=== PATIENT | male | born 1970 | race Caucasian/White ===

== ENCOUNTER 2018-05-16 22:08 | Emergency (ER) | payer MEDICAID ==
[~2018-05-16] VITALS: Ht 172.7 cm; Wt 71.0 kg
[~2018-05-16 22:08] MED LIST: GABA600T7 PO; HYDR25TA11 PO; OLAN10TA9 PO; PRAZ1CAP2 PO; SERT50TA28 PO; TRAZ-137 PO
--- NOTE | 2018-05-16 22:22 | NUR ---
PT ROMA DAVIDSON. PT RECENTLY DCd FROM [facility] ON 05/09/18. PT UNDRESSED, ALL BELONGINGS BAGGED, TAGGED AND LOCKED IN CLOSET. PT MEDS TAKEN TO PHARMACY.
[2018-05-16 23:04] VITALS: BP 148/65
== END 2018-05-16 23:06 | disposition home or self-care (01) ==
LOC: ED 23:00
DX: F32.0 Major depressive disorder, single episode, mild (principal); F17.200 Nicotine dependence, unspecified, uncomplicated
CPT/HCPCS: 99284

== ENCOUNTER 2018-05-19 01:32 | Emergency (ER) | payer MEDICAID ==
[~2018-05-19] VITALS: Ht 172.7 cm; Wt 80.0 kg
--- NOTE | 2018-05-19 02:21 | NUR ---
ALL PT BELONGINGS BAGGED, TAGGED AND LOCKED IN CLOSET. PT UNDRESSED AND IN HOSPITAL GOWN. BLANKET GIVEN TO PT. PT HAS URINE CUP TO PROVIDE URINE SAMPLE. SITTER AT DOOR. PT LAYING IN BED MAKING MULTIPLE REQUEST TO SITTER. PT AWARE OF PLAN OF CARE. WILL CONTINUE TO MONITOR.
[2018-05-19 02:30] LABS: BASOPHILS # (AUTO) 0.09 x10^3/uL (0-0.1); BASOPHILS % (AUTO) 1 % (0-1); EOSINOPHILS % (AUTO) 5 % (1-7); LYMPHOCYTES # (AUTO) 3.33 x10^3/uL (1-3.4); LYMPHOCYTES % (AUTO) 31 % (22-44); MD NO; MEAN CORPUSCULAR HEMOGLOBIN 30.6 pg (27.5-34.5); MEAN CORPUSCULAR HGB CONC 33.8 g/dL (33.2-36.2); MEAN CORPUSCULAR VOLUME 90.6 fL (81-97); MEAN PLATELET VOLUME 7.5 fL (7.4-10.4); MONOCYTES # (AUTO) 0.97 x10^3/uL (0.2-0.8); MONOCYTES % (AUTO) 9 % (2-9); NEUTROPHILS # (AUTO) 6.01 x10^3/uL (1.8-6.8); NEUTROPHILS % (AUTO) 55 % (42-75); PLATELET COUNT 243 x10^3/uL (130-400); RED BLOOD COUNT 4.55 x10^6/uL (4.38-5.82); RED CELL DISTRIBUTION WIDTH 15.4 % (9.4-14.8)
[2018-05-19 02:41] LABS: ALBUMIN 3.8 g/dL (3.4-5.0); ANION GAP 8 mmol/L (5-15); CALCIUM 8.8 mg/dL (8.5-10.1); CHLORIDE 103 mmol/L (98-107); CREATININE 1.29 mg/dL (0.7-1.3); SALICYLATE LEVEL 3.2 mg/dL (2.8-20.0)
[2018-05-19 02:44] LABS: ACETAMINOPHEN < 2 mcg/mL (10-30)
--- NOTE | 2018-05-19 03:11 | NUR ---
PT RESTING IN BED WITH AUDIBLE BREATH SOUNDS. NO STATED NEEDS AT THIS TIME. SITTER AT DOOR.
--- NOTE | 2018-05-19 04:10 | NUR ---
PT CONTINUES TO REST CALMLY IN [facility] WITH EYES CLOSED AND EVEN RESPS. SITTER AT DOOR.
--- NOTE | 2018-05-19 05:50 | NUR ---
PT WOKEN UP FOR URINE ATTEMPT. PT GIVEN URINAL. WILL CONTINUE TO MONITOR. SITTER AT DOOR.
--- NOTE | 2018-05-19 06:49 | NUR ---
BEDSIDE REPORT TO ELY KYLE. PT STILL HAS NOT PRODUCED URINE. THIS RN HAS ASKED PT REPEATEDLY FOR URINE. PT HAS URINAL IN HAND, BUT FALLS BACK TO SLEEP SHORTLY AFTER AROUSAL. BILAT BEDRAILS UP. WILL CONTINUE TO MONITOR.
--- NOTE | 2018-05-19 06:56 | NUR ---
received bedside report from SAROJ Sweet. PT SLEEPING ON GURNEY. NO ACUTE DISTRESS NOTED. RESPS EQUAL AND UNLABORED. ALL SAFETY MEAUSURES OBTAINED. PT HAS URINAL IN HAND. UA STILL NEEDED PER REPORT.
--- NOTE | 2018-05-19 07:43 | NUR ---
WOKE PATIENT UP AND REQUESTED URINE SAMPLE AGAIN. PT HAS URINAL. PT GIVEN WATER.
--- NOTE | 2018-05-19 08:15 | NUR ---
PT PROVIDED URINE SAMPLE. SAMPLE WALKED TO LAB. PT RESTING ON [place]. ALL SAFETY MEASURES OBTAINED. SITTER AT DOORWAY. PT WITHIN FULL VIEW.
[2018-05-19 08:46] LABS: AMPHETAMINE SCREEN, URINE Negative (Negative); BARBITURATE SCREEN, URINE Negative (Negative); BENZODIAZEPINE SCREEN, URINE Negative (Negative); CANNABINOID SCREEN, URINE Negative (Negative); COCAINE SCREEN, URINE Negative (Negative); METHADONE SCREEN, URINE Negative (Negative); OPIATE SCREEN, URINE Negative (Negative)
--- NOTE | 2018-05-19 09:09 | NUR ---
PT SLEEPING ON GURNEY. NO ACUTE DISTRESS NOTED. ALL SAFETY MEASURES OBTAINED. RESPS EQUAL AND UNLABORED. SITTER AT DOORWAY. WILL CONTINUE TO MONITOR.
--- NOTE | 2018-05-19 09:17 | NUR ---
Ronny from [facility] called and said patient does not need to be evaluated and can go directly to accepting facility.
--- NOTE | 2018-05-19 09:29 | NUR ---
PT SPEAKING WITH ED. PT STATES "I STILL WANT TO HURT MYSELF." ALL SAFETY MEASURES OBTAINED.
--- NOTE | 2018-05-19 10:16 | NUR ---
PT SLEEPING ON GURNEY AWAITING SOC. NO ACUTE DISTRESS NOTED. RESPS EQUAL AND UNLABORED. ALL SAFETY MEASURES OBTAINED.
--- NOTE | 2018-05-19 11:19 | NUR ---
REPORT TO FROM SOC. PT RESTING ON [place]. NO ACUTE DISTRESS NOTED. ALL SAFETY MEASURES OBTAINED. VSS. NO C/O HI PT STILL STATES HE WANTS TO HURT HIMSELF.
--- NOTE | 2018-05-19 11:26 | NUR ---
PT GIVEN WATER. SOC SPEAKING WITH PT.
--- NOTE | 2018-05-19 11:54 | NUR ---
SOC COMPLETE. DIET TRAY ORDERED. PT RESTING ON GURNEY. NO ACUTE DISTRESS NOTED. NO NEEDS REQUESTED AT THIS TIME. ALL SAFETY MEASURES OBTAINED. WILL CONTINUE TO MONITOR.
--- NOTE | 2018-05-19 12:21 | NUR ---
BREAK RN: PT RESTING QUIETLY ON BED. LUNCH TRAY DELIVERED.
[2018-05-19 12:50] VITALS: BP 124/58
--- NOTE | 2018-05-19 12:51 | NUR ---
Patient/Caregiver given discharge instructions and they have confirmed that they understand the instructions. Patient ambulatory with steady gait. PT GIVEN BACK ALL PERSONAL BELONGINGS. PT STATES "I FEEL BETTER AFTER TALKING TO THE SOC." NO C/O OF HARMING SELF
--- NOTE | 2018-05-19 13:00 | NUR ---
PT GIVEN TAXI VOUCHER
== END 2018-05-19 13:01 | disposition home or self-care (01) ==
LOC: ED 01:47
DX: R45.851 Suicidal ideations (principal); F32.9 Major depressive disorder, single episode, unspecified; F17.200 Nicotine dependence, unspecified, uncomplicated; Z72.9 Problem related to lifestyle, unspecified; Z75.9 Unspecified problem related to medical facilities and other health care; Z91.14 Patient's other noncompliance with medication regimen; Z63.8 Other specified problems related to primary support group; Z59.0 Homelessness
CPT/HCPCS: 36415; 80048; 80307; 80329; 82040; 85025; 99284; G0480

== ENCOUNTER 2018-06-10 20:26 | Emergency (ER) | payer MEDICAID ==
[~2018-06-10] VITALS: Ht 172.7 cm; Wt 80.6 kg
--- NOTE | 2018-06-10 20:46 | NUR ---
SEE TRIAGE, LEGAL HOLD ON CHART. PT WITH MINIMAL INTERACTION, CONFIRMS THAT HE IS SUICIDAL W/PLAN TO JUMP OFF BUILDING. PT STATES HE HASN'T BEEN TAKING PSYCH MED. +AH, -VH, PT DENIES HI. PT WILL NOT ELABORATE ON ANY RECENT EVENTS OR PROVIDE DETAIL OF AH. 2 BELONGING BAGS PLACED IN SECURE LOCKER, PROSTHETIC LIMB AT BS-PT UNABLE TO AMBULATE WITHOUT. CANE IN ANTE ROOM. HOME MEDS TO PHARMACY. PT UPDATED ON POC. URINAL AT BS. SITTER AT DOORWAY.
[2018-06-10 21:00] LABS: BASOPHILS % (AUTO) 1 % (0-1); EOSINOPHILS # (AUTO) 0.19 x10^3/uL (0-0.4); EOSINOPHILS % (AUTO) 1 % (1-7); LYMPHOCYTES # (AUTO) 2.35 x10^3/uL (1-3.4); LYMPHOCYTES % (AUTO) 17 % (22-44); MD NO; MEAN CORPUSCULAR HEMOGLOBIN 30.5 pg (27.5-34.5); MEAN CORPUSCULAR VOLUME 89.8 fL (81-97); MEAN PLATELET VOLUME 7.1 fL (7.4-10.4); MONOCYTES # (AUTO) 0.86 x10^3/uL (0.2-0.8); MONOCYTES % (AUTO) 6 % (2-9); NEUTROPHILS # (AUTO) 10.17 x10^3/uL (1.8-6.8); NEUTROPHILS % (AUTO) 74 % (42-75); PLATELET COUNT 205 x10^3/uL (130-400); RED BLOOD COUNT 4.38 x10^6/uL (4.38-5.82)
[2018-06-10 21:04] LABS: ALANINE AMINOTRANSFERASE 54 U/L (12-78); ALBUMIN 3.9 g/dL (3.4-5.0); ANION GAP 9 mmol/L (5-15); CALCIUM 8.3 mg/dL (8.5-10.1); CHLORIDE 104 mmol/L (98-107); CREATININE 1.19 mg/dL (0.7-1.3); SALICYLATE LEVEL 2.1 mg/dL (2.8-20.0)
[2018-06-10] MEDS ORDERED: TRAZ300T2 PO (21:04)
[2018-06-10] MEDS ORDERED: OLAN10TA9 PO (21:04)
[2018-06-10] MEDS ORDERED: GABA400C PO (21:04)
[2018-06-10] MEDS ORDERED: IBUP-1223 PO (21:04)
[2018-06-10 21:07] LABS: ALKALINE PHOSPHATASE 95 U/L (45-117); BILIRUBIN,TOTAL 0.3 mg/dL (0.2-1.0); TOTAL PROTEIN 7.6 g/dL (6.4-8.2)
[2018-06-10 21:08] LABS: ACETAMINOPHEN < 2 mcg/mL (10-30)
[2018-06-10 21:47] LABS: AMPHETAMINE SCREEN, URINE Negative (Negative); BARBITURATE SCREEN, URINE Negative (Negative); BENZODIAZEPINE SCREEN, URINE Negative (Negative); CANNABINOID SCREEN, URINE Negative (Negative); COCAINE SCREEN, URINE Negative (Negative); METHADONE SCREEN, URINE Negative (Negative); OPIATE SCREEN, URINE Negative (Negative)
--- NOTE | 2018-06-10 22:07 | NUR ---
ALL RESULTS BACK, PT FOR RECHECK.
--- NOTE | 2018-06-10 23:00 | NUR ---
REPORT FROM SAROJ REINOSO. AWAITING TELEPSYCH CONSULT
--- NOTE | 2018-06-10 23:30 | NUR ---
TELEPSYCH MONITOR AT BEDSIDE. PT RESTING IN GURNEY W/ EYES CLOSED. EVEN/REGULAR RESPIRATIONS. PT EASILY ARROUSABLE TO VOICE. PT UPDATED TO POC (TELEPSYCH CONSULT) AND DEMONSTRATES UNDERSTANDING.
--- NOTE | 2018-06-11 01:22 | NUR ---
PT RESTING ON GURNEY W/ EYES CLOSED. EVEN/REGULAR RESPIRATIONS NOTED. AWAITING TELEPSYCH CONSULT.
--- NOTE | 2018-06-11 01:51 | NUR ---
REPORT TO SOC PSYCH . AWAITING PT EVAL
--- NOTE | 2018-06-11 03:07 | NUR ---
CALLED [facility] FOR 2N CAME TO SEE PT. SHE CALLED DR. Adkins FOR ACCEPTANCE AWAITING FOR RESPONSE
--- NOTE | 2018-06-11 03:20 | NUR ---
PT RESTING CALMLY, PROVIDED PT WITH SNACK SI PRECAUTIONS MAINTAINED, ROOM SECURED, SITTER AT DOORWAY FOR CONTINOUS MONITORING.
--- NOTE | 2018-06-11 03:39 | NUR ---
REFERRAL FAXED TO [facility], [facility], AND [facility]
--- NOTE | 2018-06-11 03:55 | NUR ---
Unable to take pt d/t MRSA hx.
[2018-06-11] MEDS ORDERED: HALOPERIDOL 5 MG/ML IVPush PRN (04:00)
[2018-06-11] MEDS ORDERED: hydrALAzine 20 MG/ML, 1ML IVPush PRN (04:00)
--- NOTE | 2018-06-11 04:11 | NUR ---
PT RESTING WITH EYES CLOSED, NADN, EQUAL CHEST RISE/FALL OBSERVED, SITTER AT DOORWAY FOR CONTINOUS MONITORING
[2018-06-11] MEDS ORDERED: ENOXAPARIN 40 MG/0.4 ML ONE (04:19)
--- NOTE | 2018-06-11 04:24 | NUR ---
[facility] CALLED AND DENIED PT DUE TO INSURANCE
[2018-06-11] MEDS: ENOXAPARIN 40 MG/0.4 ML SQ SCH (04:42)
--- NOTE | 2018-06-11 05:07 | NUR ---
PT RESTING WITH EYES CLOSED, NADN, EQUAL CHEST RISE/FALL OBSERVED, PT REPOSITIONED SELF IN BED, SITTER AT DOORWAY FOR CONTINOUS MONITORING
--- NOTE | 2018-06-11 06:07 | NUR ---
PT RESTING WITH EYES CLOSED, NADN, EQUAL CHEST RISE/FALL OBSERVED, SITTER AT DOORWAY FOR CONTINOUS MONITORING
--- NOTE | 2018-06-11 06:55 | NUR ---
report given to kelsey zhong
--- NOTE | 2018-06-11 07:15 | NUR ---
BEDSIDE REPORT FROM TORRI RN, PT SLEEPING IN [facility]. NAD. SITTER AT BEDSIDE. BREAKFAST TRAY ORDERED
--- NOTE | 2018-06-11 08:15 | NUR ---
PT SLEEPING IN [place], BREAKFAST PROVIDED, SITTER AT BEDSIDE
[2018-06-11] MEDS ORDERED: IBUPROFEN 800 MG TABLET PO SCH (09:00)
--- NOTE | 2018-06-11 09:15 | NUR ---
PT SLEEPING IN [facility], SITTER AT BEDSIDE
--- NOTE | 2018-06-11 10:30 | NUR ---
PT SLEEPING IN GURNEY, AWAITING PLACEMENT. SITTER AT BEDSIDE, EQUAL CHEST RISE AND FALL
--- NOTE | 2018-06-11 11:29 | NUR ---
PT SLEEPING IN GURNEY, EQUAL CHEST RISE AND FALL. SITTER AT BEDSIDE. LUNCH TRAY ORDERED
--- NOTE | 2018-06-11 13:20 | NUR ---
LUNCH TRAY GIVEN TO PT. PT STATES HE IS STILL FEELING SUICIDAL. PT ATE 100% OF TRAY, URINAL EMPTIED. SITTER AT BEDSIDE. NAD.
[2018-06-11] MEDS ORDERED: SERTRALINE 50MG TABLET ONE (13:22)
[2018-06-11] MEDS: SERTRALINE 50MG TABLET PO SCH (13:25)
--- NOTE | 2018-06-11 14:30 | NUR ---
PT RESTING IN GURNEY, AWAITING PLACEMENT. SITTER AT BEDSIDE, EQUAL CHEST RISE AND FALL, NAD
--- NOTE | 2018-06-11 15:39 | NUR ---
PT RESTING IN GURNEY, AWAITING PLACEMENT. SITTER AT BEDSIDE, EQUAL CHEST RISE AND FALL, NAD
--- NOTE | 2018-06-11 16:30 | NUR ---
PT RESTING IN GURNEY, SITTER AT BEDSIDE, EQUAL CHEST RISE AND FALL, NAD
--- NOTE | 2018-06-11 17:31 | NUR ---
PT RESTING IN GURNEY, ,SITTER AT BEDSIDE, EQUAL CHEST RISE AND FALL, NAD
--- NOTE | 2018-06-11 18:18 | NUR ---
RECEIVED BEDSIDE REPORT FROM SAROJ ZHAO. ASSUMING PATIENT CARE AT THIS TIME.
--- NOTE | 2018-06-11 18:19 | NUR ---
PT SLEEPING ON GURNEY. ALL SAFETY MEASURES OBTAINED. SITTER AT DOORWAY, PT WITHIN FULL VIEW.
--- NOTE | 2018-06-11 18:47 | NUR ---
DIET TRAY DELIVERED. PT PLEASANT. ALL SAFETY MEASURES OBTAINED. NO NEEDS REQUESTED AT THIS TIME. SITTER AT DOORWAY, PT WITHIN FULL VIEW
--- NOTE | 2018-06-11 18:58 | NUR ---
BS REPORT OF PT FROM SAROJ GRAVES. PT ASLEEP AT THIS TIME; DEVONN. SITTER OUTSIDE OF PT ROOM.
--- NOTE | 2018-06-11 19:01 | NUR ---
BEDSIDE REPORT TO SAROJ CHINCHILLA.
--- NOTE | 2018-06-11 20:04 | NUR ---
PT ASLEEP IN [facility] AT THIS TIME; NADN. SITTER OUTSIDE OF ROOM. NO ACUTE DISTRESS NOTED AT THIS TIME.
[2018-06-11] MEDS: OLANZAPINE 10 MG TABLET PO SCH (21:00)
[2018-06-11] MEDS: PRAZOSIN 1 MG CAPSULE PO SCH (21:00)
--- NOTE | 2018-06-11 21:31 | NUR ---
PT SLEEPING IN [facility] AT THIS TIME; ISHMAEL. SITTER OUTSIDE OF ROOM FOR DIRECT OBSERVATION OF PT.
--- NOTE | 2018-06-11 22:15 | NUR ---
PT ASLEEP IN [facility]; ISHMAEL. SITTER OUTSIDE OF ROOM AT THIS TIME FOR DIRECT OBSERVATION.
[2018-06-11] MEDS ORDERED: PRAZOSIN 5 MG CAPSULE ONE (23:17)
[2018-06-11] MEDS ORDERED: OLANZAPINE 10 MG TABLET ONE (23:17)
--- NOTE | 2018-06-11 23:53 | NUR ---
PT AWAKENED AND MEDICATED PER MAR. PT DENIES ANY OTHER NEEDS AT THIS TIME. SITTER OUTSIDE OF ROOM FOR DIRECT PATIENT OBSERVATION.
--- NOTE | 2018-06-12 00:52 | NUR ---
pt sleeping in [facility] at this time; magdalene. sitter outside of pt room for direct observation. report of pt given to lunch leoncio cole.
--- NOTE | 2018-06-12 01:56 | NUR ---
PT ASLEEP IN [facility] AT THIS TIME; ISHMAEL. SITTER OUTSIDE OF PT ROOM AT THIS TIME FOR DIRECT OBSERVATION.
--- NOTE | 2018-06-12 03:56 | NUR ---
PT ASLEEP IN [facility] AT THIS TIME; NADN. EQUAL BILATERAL RISE AND FALL OF CHEST NOTED. PT HAS SITTER OUTSIDE OF ROOM FOR DIRECT OBSERVATION.
[2018-06-12] MEDS: ENOXAPARIN 40 MG/0.4 ML SQ SCH (04:00)
--- NOTE | 2018-06-12 05:56 | NUR ---
PT ASLEEP IN [facility]; ISHMAEL. SITTER OUTSIDE OF PT ROOM FOR DIRECT OBSERVATION.
[2018-06-12] MEDS ORDERED: ENOXAPARIN 40 MG/0.4 ML ONE (06:22)
--- NOTE | 2018-06-12 06:32 | NUR ---
PT VSS AND UPDATED IN EMR. PT MEDICATED PER JUN.
--- NOTE | 2018-06-12 07:07 | NUR ---
Recieved bedside report from SAROJ Peck. All questions answered. Assuming care of pt. Pt asleep on hospital bed. Sitter at doorway in direct line of sight for observation. NADN. No needs expressed.
--- NOTE | 2018-06-12 08:47 | NUR ---
Pt sleeping on gurney. Sitter near doorway in direct line of sight. NADN. No needs expressed.
[2018-06-12] MEDS ORDERED: SERTRALINE 50MG TABLET ONE (08:54)
[2018-06-12] MEDS: SERTRALINE 50MG TABLET PO SCH (09:03)
--- NOTE | 2018-06-12 09:10 | NUR ---
Provided pt breakfast tray and medications per EMAR. Pt appreciative. Emptied pt urinal. Pt appreciative. NADN. Pt states he has thoughts today of harming himself. Pt denies HI. Pt states he has a plan of jumping off a building. Sitter near doorway in direct line of sight for observation.
--- NOTE | 2018-06-12 10:53 | NUR ---
THROUGHPUT RN: [facility]
--- NOTE | 2018-06-12 11:17 | NUR ---
THROUGHPUT RN: Confirmation fax received from [facility], [facility], [facility], [facility]
[2018-06-12] MEDS ORDERED: GABAPENTIN 300 MG CAPSULE ONE ×2 (14:05→20:38)
[2018-06-12] MEDS: GABAPENTIN 300 MG CAPSULE PO SCH ×2 (14:10→20:41)
--- NOTE | 2018-06-12 14:11 | NUR ---
LATE NOTE ENTRY FOR 1100: Pt sleeping on hospital bed. NADN. No needs expressed. Sitter near doorway in direct line of sight for observation.
--- NOTE | 2018-06-12 14:11 | NUR ---
LATE NOTE ENTRY FOR 1000: Pt provided hospital bed. Pt appreciative. Sitter near doorway in direct line of sight for observation. NADN. No needs expressed.
--- NOTE | 2018-06-12 14:12 | NUR ---
LATE NOTE ENTERY FOR 1300: Pt provided lunch tray. Pt appreciative. Sitter near doorway in direct line of sight for observation.
--- NOTE | 2018-06-12 14:12 | NUR ---
LATE NOTE ENTRY FOR 1200: Pt sleeping on hospital bed. NADN. No needs expressed. Sitter near doorway in direct line of sight for observation.
--- NOTE | 2018-06-12 14:13 | NUR ---
Provided pt medication per EMAR per pt request. Sitter near doorway in direct line of sight for observation.
--- NOTE | 2018-06-12 15:14 | NUR ---
Pt sleeping on hospital bed. NADN. No needs expressed. Sitter near doorway in direct line of sight for observation.
--- NOTE | 2018-06-12 17:02 | NUR ---
LATE NOTE MARILYN FOR 163: Pt sleeping on hospital bed. NADN. No needs expressed. sitter near doorway in direct line of sight for observation.
--- NOTE | 2018-06-12 17:13 | NUR ---
Provided pt dinner tray. Pt appreciative. NADN. No needs expressed. Sitter near doorway in direct line of sight for observation.
--- NOTE | 2018-06-12 18:06 | NUR ---
Pt resting asleep on hospital bed. NADN. Sitter near doorway in direct line of sight for observation. No needs expressed.
--- NOTE | 2018-06-12 19:04 | NUR ---
Provided bedside report to SAROJ Aguero. All questiosn answered.
--- NOTE | 2018-06-12 19:04 | NUR ---
ASSUMED CARE OF PATIENT. REPORT GIVEN FROM SAROJ SHANKS PT RESTING IN ROOM. NO ACUTE DISTRESS NOTED. SITTER AT DOOR. WILL CONTINUE TO MONITOR.
--- NOTE | 2018-06-12 19:40 | NUR ---
Pt given water. Pt resting in room. no acute distress noted. sitter at door. will continue to monitor.
--- NOTE | 2018-06-12 20:25 | NUR ---
PT RESTING IN ROOM. NO ACUTE DISTRESS NOTED. CALL LIGHT IN PLACE. WILL CONTINUE TO MONITOR.
[2018-06-12] MEDS ORDERED: OLANZAPINE 10 MG TABLET ONE ×2 (20:37→20:39)
[2018-06-12] MEDS: OLANZAPINE 10 MG TABLET PO SCH (20:41)
[2018-06-12] MEDS: PRAZOSIN 1 MG CAPSULE PO SCH (21:24)
--- NOTE | 2018-06-12 22:40 | NUR ---
PT RESTING IN ROOM. NO ACUTE DISTRESS NOTED. SITTER AT DOOR. WILL CONITNUE TO MONITOR.
--- NOTE | 2018-06-12 23:27 | NUR ---
PT RESTING IN ROOM. NO ACUTE DISTRESS NOTED. SITTER AT DOOR WILL CONTINUE TO MONITOR.
--- NOTE | 2018-06-13 00:36 | NUR ---
PT RESTING IN ROOM. REGULAR RESP. NO ACUTE DISTRESS NOTED. SIITER AT DOOR. WILL CONTINUE TO MONITOR.
--- NOTE | 2018-06-13 01:40 | NUR ---
REPORT GIVEN TO SAROJ CHINCHILLA
--- NOTE | 2018-06-13 01:44 | NUR ---
report of pt from kelsey dickson and assuming care of pt at this time.
--- NOTE | 2018-06-13 03:06 | NUR ---
PT ASLEEP IN [facility] AT THIS TIME; ISHMAEL. SITTER OUTSIDE OF PT ROOM FOR DIRECT OBSERVATION.
--- NOTE | 2018-06-13 03:59 | NUR ---
PT ASLEEP IN [facility] AT THIS TIME; DEVONN SITTER OUTSIDE OF ROOM FOR DIRECT OBSERVATION AT THIS TIME.
[2018-06-13] MEDS: ENOXAPARIN 40 MG/0.4 ML SQ SCH (04:00)
[2018-06-13] MEDS ORDERED: ENOXAPARIN 40 MG/0.4 ML ONE (05:41)
--- NOTE | 2018-06-13 05:48 | NUR ---
PT MEDICATED PER JUN. PT VSS AND UPDATED IN EMR. PT RESTING IN GURNEY COMFORTABLY AND DENIES ANY OTHER NEEDS. SITTER OUTSIDE OF ROOM FOR DIRECT OBSERVATION.
--- NOTE | 2018-06-13 07:06 | NUR ---
received report from [employer]. pt calmly resting on gurney, NAD with equal chest rise/fall, no needs at this time, pt remains in safe environment, sitter in view.
--- NOTE | 2018-06-13 08:07 | NUR ---
(VS charted under wrong user name). pt upright on gurney awake, calm & cooperative, responds approp to staff, NAD, comfort measures provided, breakfast tray given, pt remains in safe environment, sitter in view.
[2018-06-13] MEDS ORDERED: SERTRALINE 50MG TABLET ONE (08:10)
[2018-06-13] MEDS ORDERED: GABAPENTIN 300 MG CAPSULE ONE ×3 (08:10→20:26)
[2018-06-13] MEDS: GABAPENTIN 300 MG CAPSULE PO SCH ×3 (08:12→21:05)
[2018-06-13] MEDS: SERTRALINE 50MG TABLET PO SCH (08:12)
[2018-06-13] MEDS ORDERED: BACITRACIN ZINC OINT 500U/GM, 0.9 GM ONE (08:26)
--- NOTE | 2018-06-13 09:02 | NUR ---
pt calmly resting on gurney, NAD with equal chest rise/fall, no needs at this time, pt remains in safe environment, sitter in view.
--- NOTE | 2018-06-13 10:02 | NUR ---
pt continues to calmly rest on gurney, NAD with equal chest rise/fall, no needs at this time, pt remains in safe environment, sitter in view.
--- NOTE | 2018-06-13 11:00 | NUR ---
pt calmly resting on gurney, NAD with equal chest rise/fall, no needs at this time, pt remains in safe environment, sitter in view.
--- NOTE | 2018-06-13 12:05 | NUR ---
pt continues to calmly rest on gurney, NAD with equal chest rise/fall, no needs at this time, pt remains in safe environment, sitter in view.
--- NOTE | 2018-06-13 12:44 | NUR ---
lunch tray given
--- NOTE | 2018-06-13 14:00 | NUR ---
TASK RN: EQUAL CHEST RISE WITH GOOD CAP REFILL. Patient is resting comfortably in bed. Vital Signs within normal limits.
--- NOTE | 2018-06-13 14:59 | NUR ---
pt upright on gurney awake, calm & cooperative, able to doze off at times, responds approp to staff, NAD, comfort measures provided, pt remains in safe environment, sitter in view.
--- NOTE | 2018-06-13 16:01 | NUR ---
pt continues to calmly rest on gurney, NAD with equal chest rise/fall, no needs at this time, pt remains in safe environment, sitter in view.
--- NOTE | 2018-06-13 17:02 | NUR ---
pt laying on gurney able to doze off, responds approp to staff, NAD, comfort measures provided, dinner tray given, pt remains in safe environment, sitter in view.
--- NOTE | 2018-06-13 18:13 | NUR ---
pt continues to calmly rest on gurney, NAD with equal chest rise/fall, no needs at this time, pt remains in safe environment, sitter in view.
--- NOTE | 2018-06-13 18:16 | NUR ---
REFUSED BY 3E
--- NOTE | 2018-06-13 19:01 | NUR ---
report given to Mi KYLE
--- NOTE | 2018-06-13 20:09 | NUR ---
Received report from Diane KYLE, assumed care of patient, nad, SI precautions observed, sitter in the hallway, will continue to monitor.
[2018-06-13] MEDS ORDERED: OLANZAPINE 10 MG TABLET ONE (20:26)
--- NOTE | 2018-06-13 20:50 | NUR ---
[place],provided with snacks and fluids, no other needs at this time, nad, sitter in the hallway, SI precautions observed, will continue to monitor.
[2018-06-13] MEDS: OLANZAPINE 10 MG TABLET PO SCH (21:05)
[2018-06-13] MEDS: PRAZOSIN 1 MG CAPSULE PO SCH (21:05)
--- NOTE | 2018-06-13 21:35 | NUR ---
Pt still endorses SI with the plan to jump off a bridge, contractws safety while in the hospital, compliant, calm resting in [facility], nad, SI precautions observed, sitter in the hallway, will continue to monitor.
--- NOTE | 2018-06-13 22:28 | NUR ---
patient sleeping in gurney, no other needs at this time, nad, sitter in hallway, SI precautions observed, will continue to monitor.
--- NOTE | 2018-06-13 23:52 | NUR ---
Patient sleeping in [facility], sitter in the hallway, SI precautions observed, will continue to monitor.
--- NOTE | 2018-06-14 00:47 | NUR ---
patient sleeping in gurney, respirations even and unlabored, nad, sitter in view, SI precautions observed, will continue to monitor.
--- NOTE | 2018-06-14 02:35 | NUR ---
patien asleep in gurney, respirations even and unlabored, NAD, sitter in view, SI precautions observed, will continue to monitor.
--- NOTE | 2018-06-14 03:52 | NUR ---
patien asleep in gurney, respirations even and unlabored, NAD, sitter in view, SI precautions observed, will continue to monitor.
[2018-06-14] MEDS: ENOXAPARIN 40 MG/0.4 ML SQ SCH (04:24)
--- NOTE | 2018-06-14 05:21 | NUR ---
patient sleeping comfortably in gurney, respirations even and unlabored, NADN sitter in view, SI precautions observed, will continue to monitor.
--- NOTE | 2018-06-14 06:23 | NUR ---
patient asleep in gurney, respirations even and unlabored, NADN sitter in view, SI precautions observed, will continue to monitor.
--- NOTE | 2018-06-14 07:01 | NUR ---
Report given to Vickie KYLE and Yulissa KYLE
--- NOTE | 2018-06-14 07:09 | NUR ---
BEDSIDE REPORT FROM LUZ ELENA KYLE, PT SLEEPING IN [facility], EQUAL CHEST RISE AND FALL, SITTER AT BEDSIDE.
--- NOTE | 2018-06-14 08:00 | NUR ---
PT SLEEPING IN GURNEY, EQUAL CHEST RISE AND FALL. SITTER AT BEDSIDE
--- NOTE | 2018-06-14 09:16 | NUR ---
PT SLEEPING, EQUAL CHEST RISE AND FALL. BREAKFAST PROVIDED.
--- NOTE | 2018-06-14 10:15 | NUR ---
PT GIVEN BREAKFAST TRAY, PT STILL +SI. AM MEDICATIONS GIVEN, NO ADDITIONAL NEEDS AT THIS TIME. SITTER AT BEDSIDE
[2018-06-14] MEDS: GABAPENTIN 300 MG CAPSULE PO SCH ×3 (11:01→22:21)
[2018-06-14] MEDS: SERTRALINE 50MG TABLET PO SCH (11:01)
--- NOTE | 2018-06-14 11:02 | NUR ---
MD AT BEDSIDE TO ASSESS PT, PT C/O ABD PAIN. EKG ORDERED.
--- NOTE | 2018-06-14 12:05 | NUR ---
PT VOIDED 800 IN URINAL. PANTS AND SHOE FOUND IN ROOM, PLACED IN PSYCH LOCKER WITH OTHER PT BELONGINGS
--- NOTE | 2018-06-14 12:27 | NUR ---
PT RESTING IN BED, PROVIDED LUNCH TRAY. CALM AND COOPERATIVE, NAD. SITTER AT DOORWAY
--- NOTE | 2018-06-14 13:15 | NUR ---
PT SLEEPING IN BED, EQUAL CHEST RISE AND FALL, SITTER AT DOORWAY. NAD. WCTM
--- NOTE | 2018-06-14 14:09 | NUR ---
PT SLEEPING IN BED, EQUAL CHEST RISE AND FALL, SITTER AT DOORWAY. NAD. WCTM
--- NOTE | 2018-06-14 15:00 | NUR ---
PRECEPTOR RN: PT IN HOSPITAL BED IN SUICIDE SECURED ROOM, SITTER AT DOORWAY, NAD, NO NEEDS AT THIS TIME, WCTM.
[2018-06-14 15:14] LABS: TROPONIN I < 0.015 ng/mL (0.000-0.045)
--- NOTE | 2018-06-14 16:02 | NUR ---
PT SLEEPING IN BED, EQUAL CHEST RISE AND FALL, SITTER AT DOORWAY. NAD. WCTM
--- NOTE | 2018-06-14 17:08 | NUR ---
PT SLEEPING WITH TV ON IN BED, SITTER AT DOORWAY. NAD. WCTM
--- NOTE | 2018-06-14 17:45 | NUR ---
PT GIVEN DINNER TRAY, PT WATCHING TV IN BED, SITTER AT DOORWAY. NAD. [place]
--- NOTE | 2018-06-14 19:06 | NUR ---
RECIEVED REPORT FROM ALENA KYLE. PT RESTING IN BED WATCHING TV. NO STATED NEEDS AT THIS TIME. WILL CONTINUE TO MONITOR. SITTER AT DOOR.
[2018-06-14 20:02] LABS: TROPONIN I < 0.015 ng/mL (0.000-0.045)
--- NOTE | 2018-06-14 20:46 | NUR ---
PT VITALS DONE. PT REQUESTING SANDWICH. SITTER AT DOOR. PT TRAY CLEARED OF DEBRIS. PT ON HOSPITAL BED.
--- NOTE | 2018-06-14 21:19 | NUR ---
PT RESTING IN BED, CONTINUING TO WATCH TV. SITTER AT DOOR.
[2018-06-14] MEDS ORDERED: GABAPENTIN 300 MG CAPSULE ONE (21:49)
[2018-06-14] MEDS ORDERED: OLANZAPINE 10 MG TABLET ONE (21:51)
--- NOTE | 2018-06-14 22:14 | NUR ---
PT MEDS REQUESTED FROM PHARM. SITTER AT DOOR. PT NOT IN DISTRESS AT THIS TIME. EMPTIED PT URINAL.
[2018-06-14] MEDS: PRAZOSIN 1 MG CAPSULE PO SCH (22:20)
[2018-06-14] MEDS: OLANZAPINE 10 MG TABLET PO SCH (22:21)
--- NOTE | 2018-06-14 23:04 | NUR ---
NURSE FOUND PT SLEEPING AND IN NO APPARENT DISTRESS. SCHEDULED MEDICATIONS ADMINISTERED AND GIVEN SANDWITCH. ALL OF PT'S NEEDS ARE MET. MIGUEL CONTINUE TO MONITOR. SITTER AT DOOR.
--- NOTE | 2018-06-15 00:13 | NUR ---
Pt sleeping in bed. RN visualized chest rising. Sitter in place. Will comtinue to monitor.
--- NOTE | 2018-06-15 01:19 | NUR ---
Pt sleeping and in no apparent distress. Chest rising symetrically. Sitter in place. Will continue to monitor.
--- NOTE | 2018-06-15 02:22 | NUR ---
Pt sleeping in bed. equal chest rise and fall. Sitter at doorway.
--- NOTE | 2018-06-15 03:11 | NUR ---
Pt sleeping in bed. equal chest rise and fall. Sitter at doorway.
--- NOTE | 2018-06-15 04:16 | NUR ---
Patient is asleep and in no appaerent distress. Equal chest rise and fall. Sitter at doorway.
--- NOTE | 2018-06-15 05:08 | NUR ---
Patient is asleep and in no appaerent distress. Equal chest rise and fall. Sitter at doorway.
--- NOTE | 2018-06-15 06:03 | NUR ---
Patient is asleep and in no appaerent distress. Equal chest rise and fall. Sitter at doorway
[2018-06-15] MEDS: ENOXAPARIN 40 MG/0.4 ML SQ SCH (06:26)
--- NOTE | 2018-06-15 07:04 | NUR ---
Received report from Masood KYLE. Vandanan is asleep observed chest rise and fall.
--- NOTE | 2018-06-15 07:28 | NUR ---
Patient is awake, nice and cooperative this morning. Endorses SI no plan, denies HI, reportsvisual and auditory halluicnation but did not disclose what he is seing or hearing, he is depressed 8/10 and anxiety 7/10. He went back to sleep after assessent.
[2018-06-15] MEDS ORDERED: GABAPENTIN 300 MG CAPSULE ONE ×3 (08:01→20:29)
[2018-06-15] MEDS ORDERED: ACETAMINOPHEN 325 MG TABLET ONE ×2 (08:01→14:15)
[2018-06-15] MEDS ORDERED: SERTRALINE 50MG TABLET ONE (08:01)
[2018-06-15] MEDS: ACETAMINOPHEN 325 MG TABLET PO PRN ×2 (08:04→14:16)
[2018-06-15] MEDS: GABAPENTIN 300 MG CAPSULE PO SCH ×3 (08:04→22:01)
[2018-06-15] MEDS: SERTRALINE 50MG TABLET PO SCH (08:04)
--- NOTE | 2018-06-15 08:21 | NUR ---
Breakfast meal tray givern to patient and ate 100% of his meal.
[2018-06-15] MEDS ORDERED: DOCUSATE 100 MG CAPSULE ONE ×2 (08:51→20:29)
[2018-06-15] MEDS: DOCUSATE 100 MG CAPSULE PO SCH ×2 (08:53→22:00)
--- NOTE | 2018-06-15 08:58 | NUR ---
Patient awake, visited by the hospitalist, complained of constipation. Hopitalist gave order for MOM 30mg daily and docusate 100mg PO BID.
[2018-06-15] MEDS: MAGNESIUM HYDROXIDE 8%, 30ML UDC PO SCH (09:54)
--- NOTE | 2018-06-15 10:24 | NUR ---
Patient asleep observed chest rise and fall.
--- NOTE | 2018-06-15 11:29 | NUR ---
Patient asleep observed chest rise and fall.
--- NOTE | 2018-06-15 12:36 | NUR ---
Lunch tray given patient is pleasant and thankful to staff.
--- NOTE | 2018-06-15 12:50 | NUR ---
Patient awake sitting at the side of the bed watching TV.
--- NOTE | 2018-06-15 13:14 | NUR ---
[facility] called to decline pt due to pt insurance.
--- NOTE | 2018-06-15 14:17 | NUR ---
Patient awake watching TV, requested medication for pain 4/10 milkd aching pain, given tylenol 650mg PO PRN.
--- NOTE | 2018-06-15 15:37 | NUR ---
Patient resting comfortably in bed watching TV.
--- NOTE | 2018-06-15 16:47 | NUR ---
Dinner tray given. Encouraged to drink fluids.
--- NOTE | 2018-06-15 18:15 | NUR ---
Patient in the room sleeping, respirations even and unlabored.
--- NOTE | 2018-06-15 19:12 | NUR ---
Pineda barajas in [facility] - 06/15/18 at 1913 by KAVITHA Pt
--- NOTE | 2018-06-15 19:13 | NUR ---
Received report from Barbara KYLE. Pt is resting in bed and calm and cooperative.
[2018-06-15] MEDS ORDERED: OLANZAPINE 10 MG TABLET ONE (20:29)
--- NOTE | 2018-06-15 21:15 | NUR ---
Pt in bed watching TV. Pt is calm and cooperative. PT states that needs are met. Sitter in doorway.
[2018-06-15] MEDS: PRAZOSIN 1 MG CAPSULE PO SCH (22:00)
[2018-06-15] MEDS: OLANZAPINE 10 MG TABLET PO SCH (22:01)
--- NOTE | 2018-06-15 22:04 | NUR ---
Pt is sitting up watching TV in bed. QHS medications administered. Pt told nurse that he experienced BM today around 1800. Pt is cooperative with all nursing care. Sitter at door.
--- NOTE | 2018-06-15 23:04 | NUR ---
PT SLEEPING IN BED, EQUAL CHEST RISE AND FALL, SITTER AT DOORWAY.
--- NOTE | 2018-06-16 00:10 | NUR ---
PT SLEEPING IN BED, EQUAL CHEST RISE AND FALL, SITTER AT DOORWAY.
--- NOTE | 2018-06-16 01:04 | NUR ---
PT SLEEPING IN BED, EQUAL CHEST RISE AND FALL, SITTER AT DOORWAY.
--- NOTE | 2018-06-16 02:02 | NUR ---
patienT asleep in BED, respirations even and unlabored sitter in view, SI precautions observed, will continue to monitor.
--- NOTE | 2018-06-16 03:09 | NUR ---
patient asleep in BED, respirations even and unlabored sitter in view, SI precautions observed, will continue to monitor.
--- NOTE | 2018-06-16 04:04 | NUR ---
Note jenn in EDM - 06/16/18 at 0405 by KAVITHA Patient is currently being seen by hospitalist. Pt is calm and cooperative. Sitter at doorway. Will continue to monitor.
--- NOTE | 2018-06-16 04:06 | NUR ---
Pt is asleep in bed and in no distress. Equal chest rise and fall. Sitter at doorway. Will continue to monitor.
--- NOTE | 2018-06-16 05:03 | NUR ---
Pt is asleep in bed and in no distress. Equal chest rise and fall. Sitter at doorway. Will continue to monitor.
--- NOTE | 2018-06-16 06:05 | NUR ---
Pt is asleep in bed and in no distress. Equal chest rise and fall. Sitter at doorway. Will continue to monitor.
[2018-06-16] MEDS ORDERED: ENOXAPARIN 40 MG/0.4 ML ONE (06:34)
[2018-06-16] MEDS: ENOXAPARIN 40 MG/0.4 ML SQ SCH (06:37)
--- NOTE | 2018-06-16 07:24 | NUR ---
RECEIVED REPORT AND ASSUMED PT. CARE. PT. IS RESTING WITHOUT CONCERNS.
--- NOTE | 2018-06-16 07:25 | NUR ---
SAFETY MEASURES MAINTAINED, SITTER IS OUTSIDE OF THE PT.'S ROOM.
--- NOTE | 2018-06-16 08:28 | NUR ---
PT. WAS GIVEN BREAKFAST. PT. IS CALM AND COOPERATIVE, VITALS MONITORED.
[2018-06-16] MEDS: DOCUSATE 100 MG CAPSULE PO SCH ×2 (09:33→21:00)
[2018-06-16] MEDS: GABAPENTIN 300 MG CAPSULE PO SCH ×3 (09:33→20:59)
[2018-06-16] MEDS: MAGNESIUM HYDROXIDE 8%, 30ML UDC PO SCH (09:33)
[2018-06-16] MEDS: SERTRALINE 50MG TABLET PO SCH (09:34)
--- NOTE | 2018-06-16 09:43 | NUR ---
PT. WAS MEDICATED ORDERED. PT. WAS GIVEN PO FLUIDS.
--- NOTE | 2018-06-16 11:06 | NUR ---
NO CHANGE AT THIS TIME.
--- NOTE | 2018-06-16 11:47 | NUR ---
PT. WAS UP TO SHOWER AND COMPLETE ADL'S.
--- NOTE | 2018-06-16 12:04 | NUR ---
PT. WAS TAKEN TO THE SHOWER. ADL'S COMPLETED. LINENS WERE CHANGED. PT. WAS GIVEN LUNCH. VSS.
--- NOTE | 2018-06-16 12:21 | NUR ---
PT. WAS GIVEN LUNCH, VITALS MONITORED.
--- NOTE | 2018-06-16 15:54 | NUR ---
FLOAT RN COVERING MEAL BREAK. PT GIVEN MED PER ERP ORDER. YAMINI CRACKERS AND JUICE GIVEN ON REQUEST. PT CALM, COOPERATIVE WITH CARE AT THIS TIME. SITTER AT DOORWAY.
--- NOTE | 2018-06-16 18:59 | NUR ---
Received report giselle Aj RN. Pt is currently resting in bed and states that all of his needs are met. Sitter at door. Will continue to monitor.
[2018-06-16] MEDS ORDERED: DOCUSATE 100 MG CAPSULE ONE (20:16)
[2018-06-16] MEDS ORDERED: OLANZAPINE 10 MG TABLET ONE (20:16)
[2018-06-16] MEDS ORDERED: GABAPENTIN 300 MG CAPSULE ONE (20:17)
--- NOTE | 2018-06-16 20:17 | NUR ---
Pt resting in bed and watching TV. No signs of distress. Pt given sandwich and drink. Pt states tht all needs are met. Sitter at door. Will continue to monitor.
[2018-06-16] MEDS: OLANZAPINE 10 MG TABLET PO SCH (21:00)
[2018-06-16] MEDS: PRAZOSIN 1 MG CAPSULE PO SCH (21:00)
--- NOTE | 2018-06-16 21:17 | NUR ---
Pt is in bed resting and watching TV. PT is cooperative with all nursing care and med compliant. Pt states that all needs are met. Sitter in doorway. Will continue to monitor.
--- NOTE | 2018-06-16 22:04 | NUR ---
Pt is currently sleeping in bed. Equal chest rise and fall. Pt is being monitored by a sitter. Will continue to monitor.
--- NOTE | 2018-06-16 23:02 | NUR ---
Pt is currently sleeping in bed. Equal chest rise and fall. Pt is being monitored by a sitter. Will continue to monitor.
--- NOTE | 2018-06-17 00:10 | NUR ---
Pt is currently sleeping in bed. Equal chest rise and fall. Pt is being monitored by a sitter. Will continue to monitor.
--- NOTE | 2018-06-17 01:05 | NUR ---
Pt is currently sleeping in bed. Equal chest rise and fall. Pt is being monitored by a sitter. Will continue to monitor.
--- NOTE | 2018-06-17 02:15 | NUR ---
Patient sleeping. Equal chest rise and fall. Sitter in doorway. Will coninue to monitor.
--- NOTE | 2018-06-17 03:16 | NUR ---
Patient sleeping. Equal chest rise and fall. Sitter in doorway. Will coninue to monitor.
--- NOTE | 2018-06-17 04:12 | NUR ---
Patient sleeping in bed, no other needs at this time. Sitter in hallway. SI precautions observed. RN will continue to monitor.
[2018-06-17] MEDS ORDERED: ENOXAPARIN 40 MG/0.4 ML ONE (04:36)
[2018-06-17] MEDS: ENOXAPARIN 40 MG/0.4 ML SQ SCH (04:40)
--- NOTE | 2018-06-17 05:05 | NUR ---
Pt is currently sleeping in bed. 0400 medicaion administered. Equal chest rise and fall. Pt is being monitored by a sitter. Will continue to monitor.
--- NOTE | 2018-06-17 06:08 | NUR ---
Patient sleeping in bed, no other needs at this time. Sitter in hallway. SI precautions observed. Breakfast tray ordered. RN will continue to monitor.
--- NOTE | 2018-06-17 07:03 | NUR ---
Report from SAROJ Correia. Pt sleeping in [facility]. NAD noted at this time. Equal rise and fall of chest.
--- NOTE | 2018-06-17 08:17 | NUR ---
PT GIVEN FOOD TRAY. ROOM SECURED. SITTER OUTSIDE ROOM.
[2018-06-17] MEDS ORDERED: DOCUSATE 100 MG CAPSULE ONE ×2 (09:16→21:06)
[2018-06-17] MEDS ORDERED: GABAPENTIN 300 MG CAPSULE ONE ×3 (09:16→21:06)
[2018-06-17] MEDS ORDERED: SERTRALINE 50MG TABLET ONE (09:16)
[2018-06-17] MEDS: DOCUSATE 100 MG CAPSULE PO SCH ×2 (09:19→21:11)
[2018-06-17] MEDS: GABAPENTIN 300 MG CAPSULE PO SCH ×3 (09:19→21:11)
[2018-06-17] MEDS: MAGNESIUM HYDROXIDE 8%, 30ML UDC PO SCH (09:19)
[2018-06-17] MEDS: SERTRALINE 50MG TABLET PO SCH (09:19)
--- NOTE | 2018-06-17 09:20 | NUR ---
PT MEDICATED PER JUN. RIGHTS VERIFIED PRIOR. 3 P'S ADDRESSED. PT GIVEN PO FLUIDS. SITTER IN PLACE.
--- NOTE | 2018-06-17 11:22 | NUR ---
PT sleeping in [facility]. NAD noted at this time. Room secured. Will continue to monitor.
--- NOTE | 2018-06-17 12:38 | NUR ---
FOOD TRAY PLACED AT PATIENTS BEDSIDE. SITTER CONTINUES TO BE IN PLACE AT THIS TIME.
[2018-06-17] MEDS ORDERED: ACETAMINOPHEN 325 MG TABLET ONE ×2 (16:14→21:06)
--- NOTE | 2018-06-17 16:16 | NUR ---
PT MEDICATED PER JUN. RIGHTS VERIFIED PRIOR. SITTER OUTSIDE ROOM. NO OTHER NEEDS AT THIS TIME. WILL CONTINUE TO MONITOR.
[2018-06-17] MEDS: ACETAMINOPHEN 325 MG TABLET PO PRN ×2 (16:18→21:11)
--- NOTE | 2018-06-17 16:30 | NUR ---
PT UP TO SHOWER WITH SITTER.
--- NOTE | 2018-06-17 19:12 | NUR ---
REPROT TO SAROJ KINGSTON.
--- NOTE | 2018-06-17 19:15 | NUR ---
REPORT RECEIVED FROM SAROJ HORTON.
--- NOTE | 2018-06-17 20:10 | NUR ---
pt resting on hospital bed, pt a&o, resps even and unlabored. pt reports 5/10 headache present for last several hrs, pt states he has hx headaches, reports this headache is similar to past headaches. neuro intact, no drift, bilateral grasp equal. 5/5 strength present to all extremities. pt denies any difficulty voiding, reports lbm today but feels mildy constipated. urinal at bedside. pt denies SI at this time. pt provided with coffee. sitter monitoring from [facility] for safety, room remains secure.
[2018-06-17] MEDS ORDERED: TRAZODONE 50MG TABLET ONE (21:06)
--- NOTE | 2018-06-17 21:07 | NUR ---
ZYPREXA AND MINIPRES NOT IN ED OMNICELL, MEDS REQUESTED FROM PHARMACY.
[2018-06-17] MEDS: TRAZODONE 50MG TABLET PO PRN (21:11)
[2018-06-17] MEDS: OLANZAPINE ODT 10MG PO SCH (21:28)
[2018-06-17] MEDS: PRAZOSIN 1 MG CAPSULE PO SCH (21:28)
--- NOTE | 2018-06-17 21:35 | NUR ---
PT MEDICATED PER EMAR, GIVEN TYLENOL FOR HEADACHE AND TRAZADONE FOR SLEEP REQUESTED BY PT. PT A&O, RESPS EVEN AND UNLABORED. PT VOIDED APPROX 500ML CLEAR YELLOW URINE, URINAL EMPTIED. PT RESTING ON HOSPITAL BED, RESPS EVEN AND UNLABORED. NADN. SITTER MONITORING FROM [facility] FOR SAFETY, ROOM REMAINS SECURE.
--- NOTE | 2018-06-17 22:52 | NUR ---
PT RESTING IN HOSPITAL BED WATCHING TV, RESPS EVEN AND UNLABORED. LIGHTS DIMMED TO ALLOW FOR SLEEP. SITTER MONITORING FROM [facility]ALL[facility]AY FOR SAFETY. ROOM REMAINS SECURE.
--- NOTE | 2018-06-17 23:52 | NUR ---
PT RESTING ON HOSPITAL BED, PT A&O, RESPS EVEN AND UNLABORED. PT REPORTS HEADACHE IMPROVED AFTER TYLENOL. SNACK AND JUICE PROVIDED. Addendum: 06/17/18 at 2352 by KATHY PT RESTING ON HOSPITAL BED, PT A&O, RESPS EVEN AND UNLABORED. PT REPORTS HEADACHE IMPROVED AFTER TYLENOL. SNACK AND JUICE PROVIDED. SITTER MONITORING FROM [facility] FOR SAFETY, ROOM REMAINS SECURE.
--- NOTE | 2018-06-18 00:02 | NUR ---
SBAR report received from RN, Luiza. Pt resting on gurney, awake, no complaints. Pt requesting snacks.
--- NOTE | 2018-06-18 00:05 | NUR ---
REPORT GIVEN TO SAROJ NELSON.
--- NOTE | 2018-06-18 00:15 | NUR ---
Snacks and drink provided to pt, per request.
--- NOTE | 2018-06-18 02:00 | NUR ---
Pt sleeping, sitter remains outside of room for pt safety.
--- NOTE | 2018-06-18 04:31 | NUR ---
pt sleeping. rr 12 and unlabored. sitter remains in place.
[2018-06-18] MEDS ORDERED: ENOXAPARIN 40 MG/0.4 ML ONE (05:57)
[2018-06-18] MEDS ORDERED: GABAPENTIN 300 MG CAPSULE ONE ×3 (05:57→21:00)
[2018-06-18] MEDS: ENOXAPARIN 40 MG/0.4 ML SQ SCH (06:05)
[2018-06-18] MEDS: GABAPENTIN 300 MG CAPSULE PO SCH ×3 (06:05→21:18)
--- NOTE | 2018-06-18 06:06 | NUR ---
PT AWOKEN FOR VITALS. POC DISCUSSED. PT DENIES FURTHER NEEDS AT THIS TIME.
--- NOTE | 2018-06-18 06:53 | NUR ---
received report from Sonny.
--- NOTE | 2018-06-18 06:54 | NUR ---
pt quietly standing in room rocking side to side, responds to yes/no questions, NAD, no needs at this time, sitter in view. Addendum: 06/18/18 at 0806 by NINO pt calmly laying on gurney sleeping, NAD with equal chest rise/fall, no needs at this time, pt remains in safe environment, sitter in view.
[2018-06-18] MEDS ORDERED: SERTRALINE 50MG TABLET ONE (07:26)
--- NOTE | 2018-06-18 08:05 | NUR ---
pt continues to calmly lay on gurney sleeping, NAD with equal chest rise/fall, no needs at this time, pt remains in safe environment, sitter in view.
[2018-06-18] MEDS: DOCUSATE 100 MG CAPSULE PO SCH ×2 (09:00→20:55)
--- NOTE | 2018-06-18 09:00 | NUR ---
pt sitting up on hospital bed eating meal tray, responds approp to staff, NAD, comfort measures provided, pt remains in safe environment, sitter in view.
[2018-06-18] MEDS: SERTRALINE 50MG TABLET PO SCH (09:53)
[2018-06-18] MEDS: MAGNESIUM HYDROXIDE 8%, 30ML UDC PO SCH (09:54)
--- NOTE | 2018-06-18 10:03 | NUR ---
pt continues to calmly lay on gurney sleeping, NAD with equal chest rise/fall, no needs at this time, pt remains in safe environment, sitter in view.
--- NOTE | 2018-06-18 11:02 | NUR ---
pt calmly laying on gurney sleeping, NAD with equal chest rise/fall, no needs at this time, pt remains in safe environment, sitter in view.
--- NOTE | 2018-06-18 12:00 | NUR ---
pt continues to calmly lay on gurney sleeping, NAD with equal chest rise/fall, no needs at this time, pt remains in safe environment, sitter in view.
--- NOTE | 2018-06-18 13:01 | NUR ---
pt sitting up on hospital bed eating lunch tray, responds approp to staff, NAD, comfort measures provided, pt remains in safe environment, sitter in view.
--- NOTE | 2018-06-18 13:40 | NUR ---
Break RN note: Pt provided with coffee per request. Pt resting in bed, NADN, denies needs.
--- NOTE | 2018-06-18 14:06 | NUR ---
pt calmly laying on gurney sleeping, NAD with equal chest rise/fall, no needs at this time, pt remains in safe environment, sitter in view.
--- NOTE | 2018-06-18 15:03 | NUR ---
pt continues to calmly lay on gurney sleeping, NAD with equal chest rise/fall, no needs at this time, pt remains in safe environment, sitter in view.
--- NOTE | 2018-06-18 16:01 | NUR ---
pt calmly laying on gurney sleeping, NAD with equal chest rise/fall, no needs at this time, pt remains in safe environment, sitter in view.
--- NOTE | 2018-06-18 17:02 | NUR ---
pt continues to calmly lay on gurney sleeping, NAD with equal chest rise/fall, no needs at this time, pt remains in safe environment, sitter in view.
--- NOTE | 2018-06-18 18:05 | NUR ---
pt sitting up on hospital bed eating dinner tray, responds approp to staff, NAD, comfort measures provided, pt remains in safe environment, sitter in view.
--- NOTE | 2018-06-18 19:11 | NUR ---
report given to Ayad
--- NOTE | 2018-06-18 19:14 | NUR ---
report received from micheal cole.
[2018-06-18] MEDS ORDERED: DOCUSATE 100 MG CAPSULE ONE (20:48)
--- NOTE | 2018-06-18 20:56 | NUR ---
pt medicated per emar. pt tolerated well. pt's aox4. resps even and unlabored.
--- NOTE | 2018-06-18 21:02 | NUR ---
medications ordered from pharmacy at this time.
[2018-06-18] MEDS: PRAZOSIN 1 MG CAPSULE PO SCH (21:19)
[2018-06-18] MEDS: OLANZAPINE ODT 10MG PO SCH (21:19)
--- NOTE | 2018-06-18 21:21 | NUR ---
pt medicated per emar. pt tolerated well. pt's aox4. resps even and unlabored.
[2018-06-18] MEDS ORDERED: ACETAMINOPHEN 325 MG TABLET ONE (22:25)
[2018-06-18] MEDS: ACETAMINOPHEN 325 MG TABLET PO PRN (22:33)
--- NOTE | 2018-06-18 22:36 | NUR ---
PT MEDICATED PER EMAR FOR FLORIAN. PT TOLERATED WELL. PT'S AOX4. RESPS EVEN AND UNLABORED. SITTER MONITORING FROM [facility]. ROOM REMAINS SECURE.
--- NOTE | 2018-06-18 23:09 | NUR ---
PT SLEEPING IN [facility]. RESPS EVEN AND UNLABORED. SITTER MONITORING FROM [facility] FOR SAFETY. ROOM REMAINS SECURE.
--- NOTE | 2018-06-19 00:27 | NUR ---
PT SLEEPING IN [facility]. RESPS EVEN AND UNLABORED. SITTER MONITORING FROM [facility] FOR SAFETY. ROOM REMAINS SECURE.
--- NOTE | 2018-06-19 01:17 | NUR ---
PT SLEEPING IN BED. RESPS EVEN AND UNLABORED. SITTER MONITORING FROM [facility] FOR SAFETY. ROOM REMAINS SECURE.
--- NOTE | 2018-06-19 02:25 | NUR ---
PT SLEEPING IN hospital bed. RESPS EVEN AND UNLABORED. SITTER MONITORING FROM [facility] FOR SAFETY. ROOM REMAINS SECURE.
--- NOTE | 2018-06-19 03:39 | NUR ---
PT SLEEPING IN BED. RESPS EVEN AND UNLABORED. SITTER MONITORING FROM [facility] FOR SAFETY. ROOM REMAINS SECURE.
--- NOTE | 2018-06-19 04:28 | NUR ---
PT SLEEPING IN BED. RESPS EVEN AND UNLABORED. SITTER MONITORING FROM [facility] FOR SAFETY. ROOM REMAINS SECURE.
--- NOTE | 2018-06-19 05:23 | NUR ---
PT SLEEPING IN BED. RESPS EVEN AND UNLABORED. SITTER MONITORING FROM [facility] FOR SAFETY. ROOM REMAINS SECURE.
[2018-06-19] MEDS ORDERED: ENOXAPARIN 40 MG/0.4 ML ONE (06:12)
[2018-06-19] MEDS: ENOXAPARIN 40 MG/0.4 ML SQ SCH (06:13)
--- NOTE | 2018-06-19 06:16 | NUR ---
PT MEDICATED PER EMAR. PT TOLERATED WELL. PT RESTING IN [place]. PT'S AOX4. RESPS EVEN AND UNLABORED. URINAL AT BEDSIDE. SITTER MONITORING FROM [facility] FOR SAFETY. ROOM REMAINS SECURE.
--- NOTE | 2018-06-19 06:56 | NUR ---
REPORT GIVEN TO DOUGLAS KYLE.
--- NOTE | 2018-06-19 08:46 | NUR ---
PT IS RESTING BED WITH EYES CLOSED, RESPIRATIONS EQUAL AND NON LABORED. NAD. SITTER OUTSIDE THE ROOM.
[2018-06-19] MEDS ORDERED: DOCUSATE 100 MG CAPSULE ONE ×2 (08:57→21:19)
[2018-06-19] MEDS ORDERED: SERTRALINE 50MG TABLET ONE (08:58)
[2018-06-19] MEDS ORDERED: GABAPENTIN 300 MG CAPSULE ONE ×2 (08:58→21:19)
[2018-06-19] MEDS: SERTRALINE 50MG TABLET PO SCH (09:00)
[2018-06-19] MEDS: MAGNESIUM HYDROXIDE 8%, 30ML UDC PO SCH (09:00)
[2018-06-19] MEDS: DOCUSATE 100 MG CAPSULE PO SCH ×2 (09:00→21:33)
[2018-06-19] MEDS: GABAPENTIN 300 MG CAPSULE PO SCH ×2 (09:01→21:32)
--- NOTE | 2018-06-19 09:04 | NUR ---
PT IS SITTING AT THE SIDE OF THE BED EATING BREAKFAST. PT IS ALERT, ORIENTED, WITH NAD. PT MEDICATED PER ORDER. SITTER OUTSIDE THE ROOM.
--- NOTE | 2018-06-19 10:01 | NUR ---
PT IS RESTING IN BED WITH EYES CLOSED, RESPIRATIONS EQUAL AND NON LABORED. NAD. SITTER OUTSIDE THE ROOM.
--- NOTE | 2018-06-19 11:06 | NUR ---
PT IS RESTING IN BED, RESPIRATIONS EQUAL AND NON LABORED. NAD. SITTER OUTSIDE THE ROOM.
--- NOTE | 2018-06-19 11:59 | NUR ---
PT IS RESTING IN BED, RESPIRATIONS EQUAL AND NON LABORED. NAD. SITTER OUTSIDE THE ROOM.
--- NOTE | 2018-06-19 12:31 | NUR ---
PT IS SITTING ON THE SIDE OF THE BED EATING LUNCH. Addendum: 06/19/18 at 1235 by JOSE E SITTER OUTSIDE THE ROOM.
--- NOTE | 2018-06-19 13:42 | NUR ---
PT IS RESTING IN BED, RESPIRATIONS EQUAL AND NON LABORED. NAD. SITTER OUTSIDE THE ROOM.
[2018-06-19] MEDS ORDERED: LORazepam 0.5MG TABLET ONE (14:11)
[2018-06-19] MEDS: LORazepam 0.5MG TABLET PO PRN (14:12)
--- NOTE | 2018-06-19 14:40 | NUR ---
PT MEDICATED PER ORDER.
--- NOTE | 2018-06-19 16:19 | NUR ---
PT IS RESTING IN BED, RESPIRATIONS EQUAL AND NON LABORED. NAD. SITTER OUTSIDE THE ROOM.
--- NOTE | 2018-06-19 16:48 | NUR ---
PT IS RESTING IN BED, TALKING WITH STAFF, RESPIRATIONS EQUAL AND NON LABORED. NAD. SITTER OUTSIDE THE ROOM.
--- NOTE | 2018-06-19 17:31 | NUR ---
PT GIVEN DINNER TRAY. PT IS RESTING IN BED, EATING. PT IS ALERT, ORIENTED, WITH NAD. SITTER OUTSIDE THE ROOM.
--- NOTE | 2018-06-19 18:28 | NUR ---
PT IS RESTING IN BED, RESPIRATIONS EQUAL AND NON LABORED. NAD. SITTER OUTSIDE THE ROOM.
--- NOTE | 2018-06-19 18:54 | NUR ---
REPORT GIVEN TO KP KYLE AND ANTELMO KYLE.
--- NOTE | 2018-06-19 21:01 | NUR ---
PT WAS SHOWERED PER REQUEST. FULL LINEN CHANGE PERFORMED. POC DISCUSSED. PT DENIES FURTHER NEEDS AT THIS TIME. SITTER IN PLACE.
[2018-06-19] MEDS ORDERED: TRAZODONE 50MG TABLET ONE (21:29)
[2018-06-19] MEDS: TRAZODONE 50MG TABLET PO PRN (21:30)
[2018-06-19] MEDS: OLANZAPINE ODT 10MG PO SCH (21:33)
[2018-06-19] MEDS: PRAZOSIN 1 MG CAPSULE PO SCH (21:33)
--- NOTE | 2018-06-19 22:00 | NUR ---
PT SLEEPING. NAD. SITTER IN PLACE.
--- NOTE | 2018-06-19 23:41 | NUR ---
PT SLEEPING. RR 14 AND UNLABORED. NAD. SITTER IN PLACE.
--- NOTE | 2018-06-20 00:52 | NUR ---
PT SLEEPING. RR 14 AND UNLABORED. NAD. SITTER IN PLACE.
[2018-06-20] MEDS ORDERED: ENOXAPARIN 40 MG/0.4 ML ONE (06:07)
[2018-06-20] MEDS ORDERED: GABAPENTIN 300 MG CAPSULE ONE ×2 (06:07→10:54)
[2018-06-20] MEDS: ENOXAPARIN 40 MG/0.4 ML SQ SCH (06:12)
[2018-06-20] MEDS: GABAPENTIN 300 MG CAPSULE PO SCH ×3 (06:12→21:19)
--- NOTE | 2018-06-20 06:33 | NUR ---
VITAL SIGNS TAKEN. PATIENT SLEEPING PRIOR. NO COMPLAINTS OF PAIN. ASKING FOR BREAKFAST. SITTER AT BEDSIDE.
--- NOTE | 2018-06-20 07:28 | NUR ---
PT SLEEPIIG, ENVIRNMENT SECURED, SITTER AT DOORWAY MEAL TRAY ODERED
[2018-06-20] MEDS ORDERED: DOCUSATE 100 MG CAPSULE ONE ×2 (08:04→15:37)
[2018-06-20] MEDS ORDERED: SERTRALINE 50MG TABLET ONE ×2 (08:05→11:01)
--- NOTE | 2018-06-20 08:28 | NUR ---
MEAL TRAY GIVEN WILL MEDICATE PATIENT WHEN MEDS ARRIVE FROM PHARMACY REQUEST SENT
--- NOTE | 2018-06-20 09:10 | NUR ---
ASSUMED CARE OF PT AND RECEIVED REPORT FROM OMAR
[2018-06-20] MEDS: MAGNESIUM HYDROXIDE 8%, 30ML UDC PO SCH (10:51)
[2018-06-20] MEDS: SERTRALINE 50MG TABLET PO SCH (10:52)
[2018-06-20] MEDS: DOCUSATE 100 MG CAPSULE PO SCH ×2 (10:52→21:18)
--- NOTE | 2018-06-20 13:21 | NUR ---
UOB WITHOUT ASSISTANCE. PT PUT PROSTHESIS ON AND WALKED TO ATTACHED BATHROOM. PT NOW SITTING ON EDGE OF BED. PROVIDED COFFEE.
--- NOTE | 2018-06-20 15:08 | NUR ---
AWAKE, LYING IN BED QUIETLY
[2018-06-20] MEDS ORDERED: OLANZAPINE 10 MG TABLET ONE ×2 (15:37→21:22)
--- NOTE | 2018-06-20 16:42 | NUR ---
LYING IN BED WATCHING TV
--- NOTE | 2018-06-20 19:18 | NUR ---
PROVIDED DINNER. VS UPDATED. PT STATES 5/10 PHANTOM PAIN RIGHT LOWER EXTREMITY
--- NOTE | 2018-06-20 21:02 | NUR ---
RECEIVED BS REPORT FROM SAROJ MEYER TO ASSUME PT. CARE AT THIS TIME. ROOM IS SECURED. SITTER IN SAEED.
[2018-06-20] MEDS: PRAZOSIN 1 MG CAPSULE PO SCH (21:19)
[2018-06-20] MEDS ORDERED: TRAZODONE 50MG TABLET ONE (21:22)
[2018-06-20] MEDS ORDERED: LORazepam 0.5MG TABLET ONE (21:22)
[2018-06-20] MEDS: LORazepam 0.5MG TABLET PO PRN (21:23)
[2018-06-20] MEDS: OLANZAPINE ODT 10MG PO SCH (21:23)
[2018-06-20] MEDS: TRAZODONE 50MG TABLET PO PRN (21:24)
--- NOTE | 2018-06-20 21:27 | NUR ---
PT. MEDICATED PER JUN. PROVIDED WITH DECAF COFFEE AND CRACKERS PER REQUEST. DENIES OTHER NEEDS AT THIS TIME. SITTER IN SAEED. ROOM SECURED.
--- NOTE | 2018-06-20 23:34 | NUR ---
PT. RESTING ON HOSPITAL BED WITH EYES CLOSED. EVEN CHEST RISE/FALL VISIBLE. NADN.
--- NOTE | 2018-06-21 00:42 | NUR ---
PT BEDSIDE REPORT FROM VANESA KYLE. THIS RN TO ASSUME CARE OF PT. RR EVEN AND UNLABORED. ROLLER DOORS IN PLACED. SITTER IN HALLWAY.
--- NOTE | 2018-06-21 01:41 | NUR ---
ROLLER DOORS IN PLACE. SITTER IN HALLWAY.
--- NOTE | 2018-06-21 03:21 | NUR ---
ROLLER DOORS IN PLACE. SITTER IN HALLWAY.
--- NOTE | 2018-06-21 04:29 | NUR ---
ROLLER DOORS IN PLACE. SITTER IN HALLWAY.
[2018-06-21] MEDS ORDERED: ENOXAPARIN 40 MG/0.4 ML ONE (04:54)
[2018-06-21] MEDS: ENOXAPARIN 40 MG/0.4 ML SQ SCH (04:59)
--- NOTE | 2018-06-21 05:31 | NUR ---
ROLLER DOORS IN PLACE. SITTER IN HALLWAY.
--- NOTE | 2018-06-21 07:20 | NUR ---
LATE NOTE ENTRY FOR 0645: Pt asleep on hospital bed. NADN. No needs expressed. All SI precautions remain in place. Sitter near doorway in direct line of sight for observation. Pt has even chest rise and fall and unlabored respirations observed.
--- NOTE | 2018-06-21 08:34 | NUR ---
TASK RN: PT RESTING IN BED. SITTER REMAINS AT BEDSIDE. ROOM REMAINS SECURE.
[2018-06-21] MEDS ORDERED: GABAPENTIN 300 MG CAPSULE ONE ×3 (08:42→20:40)
[2018-06-21] MEDS ORDERED: DOCUSATE 100 MG CAPSULE ONE ×2 (08:42→20:40)
[2018-06-21] MEDS ORDERED: SERTRALINE 50MG TABLET ONE (08:42)
[2018-06-21] MEDS: GABAPENTIN 300 MG CAPSULE PO SCH ×3 (10:26→21:09)
[2018-06-21] MEDS: DOCUSATE 100 MG CAPSULE PO SCH ×2 (10:27→21:09)
[2018-06-21] MEDS: SERTRALINE 50MG TABLET PO SCH (10:27)
[2018-06-21] MEDS: MAGNESIUM HYDROXIDE 8%, 30ML UDC PO SCH (10:56)
--- NOTE | 2018-06-21 11:15 | NUR ---
LATE NOTE ENTRY FOR 929: Pt asleep on hospital bed. DEVONN. Pt provided breakfast tray and pt ate 100% of tray. Sitter near doorway in direct line of sight for observation.
--- NOTE | 2018-06-21 11:15 | NUR ---
LATE NOTE ENTRY FOR 1030: Pt provided medication per EMAR. NADN. Pt requesting coffee. Decaf coffee provided. Sitter near doorway in direct line of sight for obsercation.
--- NOTE | 2018-06-21 11:16 | NUR ---
Pt resting on hospital bed watchign Tali QUIÑONES. No needs expressed. Sitter near doorway in direct line of sight for observation.
--- NOTE | 2018-06-21 12:51 | NUR ---
BREAK RN: PT CURRENTLY SLEEPING ON [employer]. NAD NOTED. SKIN PWD. RESP EVEN AND EQAUL. PT AO X 4. GARAGE DOORS DOWN IN ROOM. BELONGINGS IN LOCKED LOCKER. SITTER AT DOORSIDE.
--- NOTE | 2018-06-21 13:18 | NUR ---
Pt resting on hospital bed watching T.V. NADN. No needs expressed. All SI precautions remain in place. Sitter near doorway in direct line of sight for observation.
--- NOTE | 2018-06-21 14:44 | NUR ---
Pt resting on hospital bed watching TV. NADN. No needs expressed. All safety measures in place. No needs expressed.
--- NOTE | 2018-06-21 16:23 | NUR ---
LATE NOTE ENTRY FOR 1545: Pt sleeping on hospital bed. NADN. Sitter near doorway in direct line of sight for observation. No needs expressed.
--- NOTE | 2018-06-21 16:37 | NUR ---
Provided pt medication per EMAR. Pt appreciative. Pt requesting coffee. Provided pt decaf coffee. Pt appreciative.
--- NOTE | 2018-06-21 17:40 | NUR ---
Pt provided meal tray for dinner. Pt appreciative. Sitter near doorway in direct line of sight for observation. No needs expressed at this time.
--- NOTE | 2018-06-21 19:00 | NUR ---
REPORT FROM DIMITRIS KYLE. PT RESTING WITH NO NEEDS AT THIS TIME. SITTER IN VIEW OF PT.
[2018-06-21] MEDS ORDERED: OLANZAPINE 10 MG TABLET ONE (20:41)
[2018-06-21] MEDS: PRAZOSIN 1 MG CAPSULE PO SCH (21:09)
[2018-06-21] MEDS: OLANZAPINE ODT 10MG PO SCH (21:10)
--- NOTE | 2018-06-21 21:23 | NUR ---
P MEDICATE AND GIVEN A SANDWICH. VSS. PT HAS NO OTHER NEEDS AT THIS TIME. SITTER IN VIEW OF PT
--- NOTE | 2018-06-21 22:30 | NUR ---
PT WATCHING TV. PT HAS NO NEEDS AT THIS TIME. SITTER IN VIEW OF PT.
--- NOTE | 2018-06-21 23:30 | NUR ---
Pineda barajas in ED - 06/21/18 at 2333 by THOMAS PT WATCHING TV. PT HAS NO NEEDS AT THIS TIME. SITTER IN VIEW OF PT.
--- NOTE | 2018-06-21 23:31 | NUR ---
PT SLEEPING. EVEN RISE AND FALL OF CHEST OBSERVED. SITTER IN VIEW OF PT.
--- NOTE | 2018-06-22 00:33 | NUR ---
PT SLEEPING. EVEN RISE AND FOLL OF CHEST OBSERVED. SITTER IN VIEW OF PT.
--- NOTE | 2018-06-22 01:30 | NUR ---
PT SLEEPING. EVEN RISE AND FALL OF CHEST OBSERVED. SITTER IN VIEW OF PT.
--- NOTE | 2018-06-22 02:30 | NUR ---
PT SLEEPING. EVEN RISE AND FALL OF CHEST OBSERVED. SITTER IN VIEW OF PT.
--- NOTE | 2018-06-22 04:02 | NUR ---
PT SLEEPING IN NAD. PT HAS NO NEEDS AT THIS TIME. SITTER IN VIEW OF PT.
--- NOTE | 2018-06-22 05:26 | NUR ---
pt up to bathroom. Pt has no needs at this time. Sitter in view of pt
[2018-06-22] MEDS ORDERED: ENOXAPARIN 40 MG/0.4 ML ONE (05:29)
[2018-06-22] MEDS: ENOXAPARIN 40 MG/0.4 ML SQ SCH (05:31)
--- NOTE | 2018-06-22 06:16 | NUR ---
PT WATCHING TV. PT GIVEN COFFEE AND HAS NO OTHER NEEDS AT THIS TIME. SITTER IN VIEW OF PT.
--- NOTE | 2018-06-22 06:56 | NUR ---
received report from Sheryl. pt calmly laying on gurney sleeping, NAD with equal chest rise/fall, no needs at this time, pt remains in safe environment, sitter in view.
--- NOTE | 2018-06-22 08:05 | NUR ---
pt upright on [facility] awake, calm & coperative, responds approp to staff, NAD, pt given breakfast tray, no needs at this time, pt remains in safe environment, sitter in view. Addendum: 06/22/18 at 0818 by NINO pt upright on hospital bed awake, calm & cooperative, responds approp to staff, DEVON, pt given breakfast tray, no needs at this time, pt remains in safe environment, sitter in view.
[2018-06-22] MEDS: DOCUSATE 100 MG CAPSULE PO SCH ×2 (09:00→20:41)
--- NOTE | 2018-06-22 09:00 | NUR ---
pt remains upright on hospital bed awake, calm & cooperative, watchiing TV after eating breakfast, responds approp to staff, NAD, no needs at this time, pt remains in safe environment, sitter in view.
[2018-06-22] MEDS ORDERED: SERTRALINE 50MG TABLET ONE (09:02)
[2018-06-22] MEDS ORDERED: GABAPENTIN 300 MG CAPSULE ONE ×4 (09:02→20:22)
[2018-06-22] MEDS: SERTRALINE 50MG TABLET PO SCH (09:08)
[2018-06-22] MEDS: GABAPENTIN 300 MG CAPSULE PO SCH ×3 (09:08→20:41)
[2018-06-22] MEDS: MAGNESIUM HYDROXIDE 8%, 30ML UDC PO SCH (09:11)
--- NOTE | 2018-06-22 10:00 | NUR ---
report given to Deyanira KYLE
--- NOTE | 2018-06-22 10:12 | NUR ---
REPORT RECEIVED FROM SAROJ WEEMS. ASSUMED CARE OF PT. PT CURRENTLY SITTING ON [facility]. NAD NOTED. SKIN PWD. RESP EVEN AND EQAUL. PT DENIES NEEDS AT THIS TIME. GARAGE DOORS DOWN IN ROOM. BELONGINGS IN LOCKED LOCKER. SITTER AT DOORSIDE.
--- NOTE | 2018-06-22 12:00 | NUR ---
REPORT TO SAROJ BARAJAS WHO ASSUMED CARE OF PT.
--- NOTE | 2018-06-22 12:20 | NUR ---
Patient is resting comfortably in bed. CAP REFILL <3 SECONDS. EQUAL CHEST RISE AND NADN. SITTER OUTSIDE ROOM FOR CONTINOUS MONITORING.
--- NOTE | 2018-06-22 13:10 | NUR ---
Patient is resting comfortably in bed. CAP REFILL <3 SECONDS. EQUAL CHEST RISE AND NADN. SITTER OUTSIDE ROOM FOR CONTINOUS MONITORING.
--- NOTE | 2018-06-22 13:18 | NUR ---
Bed linens changed for patient at this time.
--- NOTE | 2018-06-22 15:24 | NUR ---
Patient is resting comfortably in bed. CAP REFILL <3 SECONDS. EQUAL CHEST RISE AND NADN. SITTER OUTSIDE ROOM FOR CONTINOUS MONITORING.
--- NOTE | 2018-06-22 15:46 | NUR ---
PT GIVEN AFTERNOON MEDS AND GIVEN COFFEE.
--- NOTE | 2018-06-22 16:05 | NUR ---
Patient is resting comfortably in bed. CAP REFILL <3 SECONDS. EQUAL CHEST RISE AND NADN. SITTER OUTSIDE ROOM FOR CONTINOUS MONITORING.
--- NOTE | 2018-06-22 17:51 | NUR ---
Patient is resting comfortably in bed. CAP REFILL <3 SECONDS. EQUAL CHEST RISE AND NADN. SITTER OUTSIDE ROOM FOR CONTINOUS MONITORING.
--- NOTE | 2018-06-22 18:20 | NUR ---
Provided with meal tray. No other needs.
--- NOTE | 2018-06-22 20:18 | NUR ---
Patient is resting comfortably in bed. CAP REFILL <3 SECONDS. EQUAL CHEST RISE AND NADN. SITTER OUTSIDE ROOM FOR CONTINOUS MONITORING.
[2018-06-22] MEDS ORDERED: DOCUSATE 100 MG CAPSULE ONE (20:21)
[2018-06-22] MEDS ORDERED: OLANZAPINE 10 MG TABLET ONE (20:21)
[2018-06-22] MEDS: PRAZOSIN 1 MG CAPSULE PO SCH (20:41)
[2018-06-22] MEDS: OLANZAPINE ODT 10MG PO SCH (20:41)
--- NOTE | 2018-06-22 20:56 | NUR ---
Patient is resting comfortably in bed. CAP REFILL <3 SECONDS. EQUAL CHEST RISE AND NADN. SITTER OUTSIDE ROOM FOR CONTINOUS MONITORING.
--- NOTE | 2018-06-22 23:20 | NUR ---
Patient is resting comfortably in bed. CAP REFILL <3 SECONDS. EQUAL CHEST RISE AND NADN. SITTER OUTSIDE ROOM FOR CONTINOUS MONITORING.
--- NOTE | 2018-06-23 00:09 | NUR ---
REPORT RECEIVED FROM SAROJ BARAJAS. ASSUMED CARE OF PT. PT SLEEPING ON HOSPITAL BED, IN NAD. RESPIRATIONS EVEN AND UNLABORED. ROOM REMAINS SECURE, SITTER OUTSIDE DOOR MONITORING PT.
--- NOTE | 2018-06-23 01:56 | NUR ---
PT SLEEPING ON HOSPITAL BED. RESPIRATIONS EVEN AND UNLABORED. ROOM REMIANS SECURE, SITTER OUTSIDE DOOR. WILL CONTINUE TO MONITOR.
--- NOTE | 2018-06-23 03:37 | NUR ---
PT SLEEPING, RESPIRATIONS EVEN AND UNLABORED. ROOM REMAINS SECURE. SITTER OUTSIDE DOOR.
--- NOTE | 2018-06-23 05:02 | NUR ---
PT SLEEPING, RESPIRATIONS EVEN AND UNLABORED, SITTER OUTSIDE DOOR MONITORING PT, ROOM REMAINS SECURE.
--- NOTE | 2018-06-23 06:37 | NUR ---
PT CONTINUES TO SLEEP, SITTER OUTSIDE DOOR MONITORING PT. WILL CONTINUE TO MONITOR. ROOM REMAINS SECURE.
--- NOTE | 2018-06-23 07:17 | NUR ---
RECEIVED REPORT FROM MARVIN FRAGA RN. PT RESTING ON [facility]. NADN. GREERTER REMAINS AT BEDSIDE. ROOM REMAINS SECURE.
[2018-06-23] MEDS ORDERED: ENOXAPARIN 40 MG/0.4 ML ONE (08:11)
[2018-06-23] MEDS ORDERED: DOCUSATE 100 MG CAPSULE ONE (08:11)
[2018-06-23] MEDS ORDERED: SERTRALINE 50MG TABLET ONE (08:11)
[2018-06-23] MEDS ORDERED: GABAPENTIN 300 MG CAPSULE ONE (08:12)
--- NOTE | 2018-06-23 08:14 | NUR ---
YELLOW SLIP SENT TO PHARMACY FOR MILK OF MAG.
[2018-06-23] MEDS: ENOXAPARIN 40 MG/0.4 ML SQ SCH (08:19)
[2018-06-23] MEDS: SERTRALINE 50MG TABLET PO SCH (08:19)
[2018-06-23] MEDS: GABAPENTIN 300 MG CAPSULE PO SCH (08:19)
[2018-06-23] MEDS: DOCUSATE 100 MG CAPSULE PO SCH (08:19)
--- NOTE | 2018-06-23 08:25 | NUR ---
PT RESTING IN BED. VSS. PROVIDED W/ SI BREAKFAST MEAL TRAY. PT MEDICATED PER JUN. SITTER REMAINS AT BEDSIDE. ROOM REMAINS SECURE.
[2018-06-23 08:26] VITALS: BP 130/67
[2018-06-23] MEDS: MAGNESIUM HYDROXIDE 8%, 30ML UDC PO SCH (08:41)
--- NOTE | 2018-06-23 08:50 | NUR ---
REPORT GIVEN TO SAROJ DIAZ.
--- NOTE | 2018-06-23 09:17 | NUR ---
Pt resting in bed NAD.
[2018-06-23] MEDS ORDERED: GABA300C10 PO (13:09)
--- NOTE | 2018-06-23 13:50 | NUR ---
Hold recended by court. Pt being discharged.
== END 2018-06-23 14:15 | disposition home or self-care (01) ==
LOC: ED 21:16 → EDIP 06-11 03:18 → INTOOBSV 06-11 03:18 → UNDOADMOB 06-11 03:18 → ED 06-11 03:52 → EDIP 06-11 03:52 → UNDOFXERSVC 06-11 03:52 → EDERBED 06-11 03:52 → ED 06-23 14:15 → EDIP 06-23 14:15 → ED 06-23 14:55
DX: F32.9 Major depressive disorder, single episode, unspecified (principal); R45.851 Suicidal ideations
CPT/HCPCS: 36415; 80053; 80307; 80329; 84484; 85025; 93005; 96372; 99284; G0378; J1650; 99285; G0480

== ENCOUNTER 2018-08-04 16:05 | Inpatient (IN) | payer MEDICAID ==
[~2018-08-04] VITALS: Ht 172.7 cm; Wt 72.7 kg
[~2018-08-04 16:05] MED LIST changes: +GABA300C10 PO; +GABA400C PO; +IBUP-1223 PO; +TRAZ300T2 PO
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
--- NOTE | 2018-08-04 19:05 | NUR ---
PT SLEEPING IN GURNEY, EQUAL CHEST RISE AND FALL. CAMERA AT BEDSIDE FOR SOC
[2018-08-04 19:19] LABS: AMPHETAMINE SCREEN, URINE Negative (Negative); BARBITURATE SCREEN, URINE Negative (Negative); BENZODIAZEPINE SCREEN, URINE Negative (Negative); CANNABINOID SCREEN, URINE Negative (Negative); COCAINE SCREEN, URINE Negative (Negative); METHADONE SCREEN, URINE Negative (Negative); OPIATE SCREEN, URINE Negative (Negative)
--- NOTE | 2018-08-04 20:03 | NUR ---
UPDATED SOC ON PT CONDITION, CAMERA IN ROOM. PT SLEEPING IN GURNEY, EQUAL CHEST RISE AND FALL. SITTER AT BEDSIDE
--- NOTE | 2018-08-04 21:01 | NUR ---
PT SLEEPING IN GURNEY, EQUAL CHEST RISE AND FALL. SITTER AT BEDSIDE
[2018-08-04] MEDS ORDERED: IBUPROFEN 200 MG TABLET ONE (21:20)
[2018-08-04] MEDS ORDERED: IBUPROFEN 600 MG TABLET PO ONE (21:30)
[2018-08-04] MEDS ORDERED: PLEASE ENTER HEIGHT AND WEIGHT MC SCH (21:30)
--- NOTE | 2018-08-04 22:05 | NUR ---
PT RESTING IN [facility], REQUESTING MOTRIN AND GABAPENTIN. MD NOTIFIED, DOES NOT WANT TO ORDER GABAPENTIN AT THIS TIME. PT MEDICATED WITH MOTRIN. SITTER AT BEDSIDE
--- NOTE | 2018-08-04 22:51 | NUR ---
REPORT FROM CHANELL KYLE. ADMITTING MD AT BEDSIDE. PT MOVED TO HOSPITAL BED. SITTER IN VIEW OF PT.
[2018-08-04] MEDS ORDERED: GABAPENTIN 400 MG CAPSULE PO SCH (23:30)
[2018-08-04] MEDS ORDERED: DOCUSATE 100 MG CAPSULE PO PRN (23:30)
--- NOTE | 2018-08-04 23:36 | NUR ---
FAXED PT PACKET TO [facility], [facility], [facility], [facility]
[2018-08-04] MEDS ORDERED: NICOTINE 21 MG/24 HR PATCH.TD24 ONE (23:47)
[2018-08-04] MEDS ORDERED: OLANZAPINE 10 MG TABLET ONE (23:47)
[2018-08-04] MEDS ORDERED: GABAPENTIN 300 MG CAPSULE ONE (23:48)
--- NOTE | 2018-08-05 00:02 | NUR ---
PT RESTING. MEDICATION REQUESTED FROM PHARMACY. WILL MEDICATE WHEN IT IS RECIEVED. PT AWARE OF PLAN.
[2018-08-05] MEDS: TRAZODONE 150MG TABLET PO SCH ×2 (00:11→20:42)
[2018-08-05] MEDS: OLANZAPINE 10 MG TABLET PO SCH ×2 (00:11→20:43)
[2018-08-05] MEDS: NICOTINE 21 MG/24 HR PATCH.TD24 TD SCH ×2 (00:11→23:02)
--- NOTE | 2018-08-05 00:17 | NUR ---
PT MEDICATED AND GIVEN A SNACK. VSS. SITTER IN VIEW OF PT.
--- NOTE | 2018-08-05 01:28 | NUR ---
PT SLEEPING. EVEN RISE AND FALL OF CHEST OBSERVED . SITTER IN VIEW OF PT.
--- NOTE | 2018-08-05 02:25 | NUR ---
PT SLEEPING. EVEN RISE AND FALL OF CHEST OBSERVED. PT HAS NO NEEDS AT THIS TIME. SITTER IN VIEW OF PT.
--- NOTE | 2018-08-05 03:45 | NUR ---
PT SLEEPING IN NAD. EVEN RISE AND FALL OF CHEST OBSERVED. SITTER IN VIEW OF PT.
--- NOTE | 2018-08-05 05:26 | NUR ---
PT SLEEPING. EVEN RISE AND FALL OF CHEST OBSERVED. VSS. SITTER IN VIEW OF PT.
--- NOTE | 2018-08-05 06:29 | NUR ---
PT SLEEPING IN GURNEY, EQUAL CHEST RISE AND FALL. SITTER AT BEDSIDE
--- NOTE | 2018-08-05 07:42 | NUR ---
pt provided with meal tray. denies further needs at this time
[2018-08-05] MEDS ORDERED: SERTRALINE 50MG TABLET ONE (09:57)
[2018-08-05] MEDS ORDERED: GABAPENTIN 300 MG CAPSULE ONE ×2 (09:57→20:38)
[2018-08-05] MEDS: SERTRALINE 50MG TABLET PO SCH (10:01)
[2018-08-05] MEDS: GABAPENTIN 300 MG CAPSULE PO SCH ×3 (10:02→20:42)
--- NOTE | 2018-08-05 10:02 | NUR ---
PT PROVIDED WITH MEAL TRAY. DENIES FURTHER NEEDS. SITTER MONITORING FROM [facility] FOR SAFETY
[2018-08-05] MEDS: PRAZOSIN 1 MG CAPSULE PO SCH (11:01)
--- NOTE | 2018-08-05 13:10 | NUR ---
Kristina from [facility] denied patient.
--- NOTE | 2018-08-05 13:51 | NUR ---
received bedside report from SAROJ Echavarria.
--- NOTE | 2018-08-05 14:02 | NUR ---
PT SLEEPING ON HOSP BED. RESPS EQUAL AND UNLABORED. ALL SAFETY MEASURES OBTAINED. SITTER AT DOORWAY, PT WITHIN FULL VIEW. WILL CONTINUE TO MONITOR.
--- NOTE | 2018-08-05 15:30 | NUR ---
PT CONTINUES TO SLEEP ON HOSP BED. NO ACUTE DISTRESS NOTED. RESPS EQUAL AND UNLABORED. ALL SAFETY MEASURES OBTAINED, SITTER AT DOORWAY. PT WITHIN FULL VIEW.
--- NOTE | 2018-08-05 17:15 | NUR ---
LATE ENTRY FOR 1620 PT SLEEPS ON HOSP BED. NO ACUTE DISTRESS NOTED. ALL SAFETY MEASURES OBTAINED. WILL CONTINUE TO MONITOR.
--- NOTE | 2018-08-05 17:16 | NUR ---
DIET TRAY ORDERED.
--- NOTE | 2018-08-05 18:33 | NUR ---
DIET TRAY DELIVERED. NO ACUTE DISTRESS NOTED. ALL SAFETY MEASURES OBTAINED. SITTER AT DOORWAY, PT WITHIN FULL VIEW.
--- NOTE | 2018-08-05 19:01 | NUR ---
REPORT RECEIVED FROM ELY KYLE.
--- NOTE | 2018-08-05 19:04 | NUR ---
BEDSIDE REPORT TO SAROJ GILLETTE
--- NOTE | 2018-08-05 20:06 | NUR ---
PT PROVIDED SANDVITALYICH AT THIS TIME.
[2018-08-05] MEDS ORDERED: OLANZAPINE 10 MG TABLET ONE (20:38)
[2018-08-05] MEDS ORDERED: TRAZODONE 50MG TABLET ONE (20:38)
--- NOTE | 2018-08-05 20:45 | NUR ---
PT MEDICATED PER EMAR. PT TOLERATED WELL.
[2018-08-05] MEDS ORDERED: IBUPROFEN 800 MG TABLET ONE (20:55)
[2018-08-05] MEDS: IBUPROFEN 800 MG TABLET PO PRN (21:18)
--- NOTE | 2018-08-05 21:33 | NUR ---
PT MEDICATED PER EMAR FOR PAIN. PT TOLERATED WELL. PT'S AOX4. RESPS EVEN AND UNLABORED.
--- NOTE | 2018-08-05 23:00 | NUR ---
PT SLEEPING IN [place]. RESPS EVEN AND UNLABORED. SITTER MONITORING FROM HALLWAY. ROOM REMAINS SECURE.
[2018-08-05] MEDS ORDERED: NICOTINE 21 MG/24 HR PATCH.TD24 ONE (23:01)
--- NOTE | 2018-08-05 23:05 | NUR ---
NICOTINE PATCH REPLACED AT THIS TIME.
--- NOTE | 2018-08-06 00:08 | NUR ---
BREAK RN: PT RESTING IN ROOM. NO ACUTE DISTRESS NOTED. SITTER AT DOOR. WILL CONTINUE TO MOINTOR.
--- NOTE | 2018-08-06 00:38 | NUR ---
REPORT GIVEN TO SAROJ GILLETTE
--- NOTE | 2018-08-06 01:49 | NUR ---
PT SLEEPING IN HOSPITAL BED. RESPS EVEN AND UNLABORED. SITTER MONITORING FROM [facility]ALLWAY FOR SAFETY. ROOM REMAINS SECURE.
--- NOTE | 2018-08-06 02:35 | NUR ---
PT SLEEPING IN HOSPITAL BED. RESPS EVEN AND UNLABORED. SITTER MONITORING FROM [facility]ALLWAY FOR SAFETY. ROOM REMAINS SECURE.
--- NOTE | 2018-08-06 03:48 | NUR ---
PT SLEEPING IN HOSPITAL BED NOW. RESPS EVEN AND UNLABORED. SITTER MONITORING FROM HALLWAY FOR SAFETY. ROOM REMAINS SECURE.
--- NOTE | 2018-08-06 04:45 | NUR ---
PT SLEEPING IN HOSPITAL BED. RESPS EVEN AND UNLABORED. SITTER MONITORING FROM [facility]ALLWAY FOR SAFETY. ROOM REMAINS SECURE.
--- NOTE | 2018-08-06 05:00 | NUR ---
DIET TRAY ORDERED.
--- NOTE | 2018-08-06 06:12 | NUR ---
PT DENIES SI/HI AT THIS TIME.
--- NOTE | 2018-08-06 06:53 | NUR ---
REPORT GIVEN TO DANK KYLE.
--- NOTE | 2018-08-06 06:54 | NUR ---
received report from Kellie. pt laying on gurney with eyes closed, NAD with equal chest rise/fall, no needs at this time, pt remains in safe environment, sitter in view.
--- NOTE | 2018-08-06 08:05 | NUR ---
pt continues laying on gurney with eyes closed, NAD with equal chest rise/fall, no needs at this time, pt remains in safe environment, sitter in view.
--- NOTE | 2018-08-06 08:30 | NUR ---
breakfast tray given
--- NOTE | 2018-08-06 09:04 | NUR ---
pt back to sleep on hospital bed after eating breakfast, refuses to review any home meds at this time but otherwise responds approp to staff, NAD, comfort measures provided, pt remains in safe environment, sitter in view.
--- NOTE | 2018-08-06 10:00 | NUR ---
pt continues laying on hospital bed with eyes closed, NAD with equal chest rise/fall, no needs at this time, pt remains in safe environment, sitter in view. iso precautions also remain in place.
[2018-08-06] MEDS: SERTRALINE 50MG TABLET PO SCH (11:20)
[2018-08-06] MEDS: GABAPENTIN 300 MG CAPSULE PO SCH ×3 (11:20→20:53)
[2018-08-06] MEDS ORDERED: GABAPENTIN 300 MG CAPSULE ONE ×3 (11:22→20:48)
[2018-08-06] MEDS ORDERED: SERTRALINE 50MG TABLET ONE (11:22)
[2018-08-06] MEDS: PRAZOSIN 1 MG CAPSULE PO SCH (11:40)
[2018-08-06] MEDS ORDERED: IBUPROFEN 800 MG TABLET ONE (11:41)
[2018-08-06] MEDS: IBUPROFEN 800 MG TABLET PO PRN (11:41)
--- NOTE | 2018-08-06 13:04 | NUR ---
pt continues laying on hospital bed with eyes closed, NAD with equal chest rise/fall, lunch tray given, no needs at this time, pt remains in safe environment, sitter in view. iso precautions also remain in place.
--- NOTE | 2018-08-06 13:31 | NUR ---
REPORT GIVEN TO STEFFANY KYLE
--- NOTE | 2018-08-06 13:46 | NUR ---
REC REPORT ASSUMED CARE PT RESTING SITTER IN THE SAEED WATSHING THE PT
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
--- NOTE | 2018-08-06 19:01 | NUR ---
REPORT TO CHAST[facility]
--- NOTE | 2018-08-06 19:07 | NUR ---
[facility]
--- NOTE | 2018-08-06 19:57 | NUR ---
Provided with sandwich and water.
--- NOTE | 2018-08-06 20:37 | NUR ---
Resting in [facility]. RR = 16.
[2018-08-06] MEDS ORDERED: OLANZAPINE 10 MG TABLET ONE (20:48)
[2018-08-06] MEDS ORDERED: TRAZODONE 50MG TABLET ONE (20:48)
[2018-08-06] MEDS: OLANZAPINE 10 MG TABLET PO SCH (20:53)
[2018-08-06] MEDS: TRAZODONE 150MG TABLET PO SCH (20:53)
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
--- NOTE | 2018-08-06 22:30 | NUR ---
PT RESTING IN GURNEY W EYES CLOSED. EVEN/REGULAR RESPIRATIONS NOTED. SITTER PRESENT. ROOM SECURE.
--- NOTE | 2018-08-06 23:41 | NUR ---
PT RESTING IN GURNEY W EYES CLOSED. EVEN/REGULAR RESPIRATIONS NOTED. SITTER PRESENT. ROOM SECURE.
--- NOTE | 2018-08-07 00:25 | NUR ---
PT MOSTLY SLEEPY, ARROUSABLE TO PHYSICAL STIM AND RETURNS QUICKLY TO SLEEP. PT COOPERATIVE WITH VS. ROOM SECURE. SITTER PRESENT
[2018-08-07] MEDS ORDERED: NICOTINE 21 MG/24 HR PATCH.TD24 ONE ×2 (02:00→20:32)
--- NOTE | 2018-08-07 02:01 | NUR ---
REPORT TO SAROJ SHEEHAN
[2018-08-07] MEDS: NICOTINE 21 MG/24 HR PATCH.TD24 TD SCH ×2 (02:02→20:43)
--- NOTE | 2018-08-07 02:02 | NUR ---
ASSUMED CARE OF PATIENT. REPORT GIVEN FROM SAROJ LUA
[2018-08-07] MEDS ORDERED: ALBUTEROL SULFATE 2.5MG/0.5ML ONE (02:42)
--- NOTE | 2018-08-07 03:32 | NUR ---
PT RESTING IN ROOM. NO ACUTE DISTRESS NOTED. SITTER AT DOOR WILL CONTINUE TO MONTIOR.
--- NOTE | 2018-08-07 04:35 | NUR ---
PT RESTING IN ROOM. NO ACUTE DISTRESS NOTED. SITTER AT DOOR. WILL CONTINUE TO MONITOR.
--- NOTE | 2018-08-07 05:55 | NUR ---
PT RESTING IN ROOM. SITTER AT DOOR. NO ACUTE DISTRESS NOTED. VS STABLE. WILL CONTINUE TO MONITOR.
--- NOTE | 2018-08-07 07:01 | NUR ---
REPORT RECEIVED FROM SAROJ SHEEHAN AT BEDSIDE, PT AWAKE, ALERT, RESPS EVEN AND UNLABORED. PT ASKING TO GO TO [place], INFORMED OF POC. PT RESTING ON HOSPITAL BED, SITTER MONITORING FROM [facility] FOR SAFETY. ROOM SECURE.
--- NOTE | 2018-08-07 07:37 | NUR ---
am med minipres not in ED omnicell, requested from pharmacy.
--- NOTE | 2018-08-07 08:18 | NUR ---
[facility] CALLED AGAIN
[2018-08-07] MEDS ORDERED: SERTRALINE 50MG TABLET ONE (08:22)
[2018-08-07] MEDS ORDERED: GABAPENTIN 300 MG CAPSULE ONE ×3 (08:22→20:32)
[2018-08-07] MEDS: GABAPENTIN 300 MG CAPSULE PO SCH ×3 (08:34→20:42)
[2018-08-07] MEDS: SERTRALINE 50MG TABLET PO SCH (08:34)
[2018-08-07] MEDS: PRAZOSIN 1 MG CAPSULE PO SCH (08:34)
--- NOTE | 2018-08-07 08:37 | NUR ---
pt given SI meal tray, tolerating well. pt medicated per emar, tolerates well. pt a&ox4, resps even and unlabored. pt notes headache present x several days, has hx same. neuro intact. pt denies difficulty voiding today, states he cannot remember date of lbm but refuses stool softener. sitter monitoring from [facility] for safety, room remains secure. Addendum: 08/07/18 at 0839 by KATHY pt given SI meal tray, tolerating well. pt medicated per emar, tolerates well. pt a&ox4, resps even and unlabored. pt notes headache present x several days, has hx same. neuro intact. pt denies difficulty voiding today, states he cannot remember date of lbm but refuses stool softener. pt calm and cooperative, denies SI/HI. sitter monitoring from hallway for safety, room remains secure.
--- NOTE | 2018-08-07 11:00 | NUR ---
pt resting on hospital bed. sitter monitoring from [facility] for safety, room remains secure.
--- NOTE | 2018-08-07 11:59 | NUR ---
pt sleeping on hospital bed, resps even and unlabored, sitter monitoring from hallway for safety, room remains secure.
--- NOTE | 2018-08-07 12:30 | NUR ---
PT GIVEN SI MEAL TRAY
--- NOTE | 2018-08-07 13:30 | NUR ---
pt resting on hospital bed, sitter monitoring from [facility] for safety, room secure.
[2018-08-07] MEDS ORDERED: IBUPROFEN 800 MG TABLET ONE (14:32)
[2018-08-07] MEDS: IBUPROFEN 800 MG TABLET PO PRN (14:42)
--- NOTE | 2018-08-07 14:42 | NUR ---
pt medicated per emar, tolerated well. pt given motrin for c/o headache, 4/10 at this time. pt a&ox4, resps even and unlabored. pt is calm and cooperative, no complaint at this time with exception to headache. 500mL clear yellow urine emptied from urinal, total of 1000mL urine voided by pt since 0900 this am. pt is in hospital bed, demonstrating independent weight shifts q1hr. sitter monitoring from hallway for safety, room remains secure.
--- NOTE | 2018-08-07 16:00 | NUR ---
pt awake and alert, resps even and unlabored. sitter monitoring from hallway for safety, room remains secure. nadn at this time.
--- NOTE | 2018-08-07 17:20 | NUR ---
pt resting on hospital bed, resps even and unlabored. nadn. sitter monitoring from [facility] for safety. room secure.
--- NOTE | 2018-08-07 18:00 | NUR ---
pt given SI meal tray
--- NOTE | 2018-08-07 18:51 | NUR ---
pt consumed meal tray 100%, tolerated well. pt states headache has slightly improved since ibuprofen admin. pt a&o, resps even and unlabored. neuro intact. vs reassessed, bp 192/78. plant production worker hospitalist Boris SMITH notified, vs trend reviewed by LUIS Escalante APRN notified pt c/o headache starting yesterday. order received for scheduled lisinopril. pharmacy called to verify new med order.
--- NOTE | 2018-08-07 19:00 | NUR ---
500CC CLEAR YELLOW URINE EMPTIED FROM URINAL. REPORT GIVEN TO SAROJ CHINCHILLA. PT A&O, RESPS EVEN AND UNLABORED. SITTER MONITORING FROM [facility] FOR SAFETY, ROOM SECURE.
--- NOTE | 2018-08-07 19:01 | NUR ---
REPORT OF PT FROM SAROJ KINGSTON AND ASSUMING CARE OF PT AT THIS TIME. PT RESTING COMFORTABLY IN [facility] AT THIS TIME.
--- NOTE | 2018-08-07 20:00 | NUR ---
PT RESTING IN [facility] AT THIS TIME; NADN. PT DENIES ANY OTHER NEEDS AT THIS TIME.
[2018-08-07] MEDS ORDERED: OLANZAPINE 10 MG TABLET ONE (20:32)
[2018-08-07] MEDS ORDERED: LISINOPRIL 10 MG TABLET ONE (20:32)
[2018-08-07] MEDS ORDERED: TRAZODONE 50MG TABLET ONE (20:32)
[2018-08-07] MEDS: OLANZAPINE 10 MG TABLET PO SCH (20:43)
[2018-08-07] MEDS: LISINOPRIL 10 MG TABLET PO SCH (20:43)
[2018-08-07] MEDS: TRAZODONE 150MG TABLET PO SCH (20:43)
--- NOTE | 2018-08-07 21:11 | NUR ---
PT MEDICATED PER JUN. PT REQUESTING FOOD. SITTER OUTSIDE OF PT ROOM AT THIS TIME FOR DIRECT OBSERVATION.
--- NOTE | 2018-08-07 22:40 | NUR ---
PT PROVIDED SANDWICH PER REQUEST.
--- NOTE | 2018-08-08 01:25 | NUR ---
PT SLEEPING IN GURNEY AT THIS TIME; ISHMAEL. PT AWOKEN FOR VS. VSS AT THIS TIME. SITTER OUTSIDE OF ROOM FOR DIRECT OBSERVATION OF PATIENT.
--- NOTE | 2018-08-08 02:01 | NUR ---
PT ASLEEP IN [facility] AT THIS TIME; ISHMAEL. SITTER OUTSIDE OF PT ROOM FOR DIRECT OBSERVATION. WILL CONTINUE TO MONITOR.
--- NOTE | 2018-08-08 02:53 | NUR ---
PT ASLEEP IN RNEY WITH SITTER OUTSIDE OF ROOM FOR DIRECT OBSERVATION OF PT. EQUAL BILATERAL RISE AND FALL OF CHEST NOTED FROM DOORWAY; DEVONN.
--- NOTE | 2018-08-08 04:37 | NUR ---
PT AWOKE AND VOIDED IN URINAL. PT LAYING BACK IN GURNEY AND DENIES ANY NEEDS AT THIS TIME. PT HAS SITTER OUTSIDE OF ROOM FOR DIRECT OBSERVATION.
--- NOTE | 2018-08-08 06:24 | NUR ---
PT VSS AND UPDATED IN EMR. [facility] NO ACUTE DISTRESS NOTED.
--- NOTE | 2018-08-08 07:12 | NUR ---
Recieved bedside report from SAROJ Peck. All questions answered. Assuming care of pt. Pt resting on bed. NADN. Pt has even chest rise and fall. SI precautions in place. Sitter near doorway in direct line of sight for observation. No needs expressed at this time.
[2018-08-08] MEDS ORDERED: LISINOPRIL 10 MG TABLET ONE ×2 (08:10→21:44)
[2018-08-08] MEDS ORDERED: GABAPENTIN 300 MG CAPSULE ONE ×3 (08:11→21:44)
[2018-08-08] MEDS ORDERED: SERTRALINE 50MG TABLET ONE (08:11)
--- NOTE | 2018-08-08 08:21 | NUR ---
TASK RN: EDILSON MARTIN SENT TO PHARMACY
[2018-08-08] MEDS: SERTRALINE 50MG TABLET PO SCH (08:28)
[2018-08-08] MEDS: PRAZOSIN 1 MG CAPSULE PO SCH (08:28)
[2018-08-08] MEDS: LISINOPRIL 10 MG TABLET PO SCH ×2 (08:28→21:53)
[2018-08-08] MEDS: GABAPENTIN 300 MG CAPSULE PO SCH ×3 (08:28→21:53)
--- NOTE | 2018-08-08 08:41 | NUR ---
Provided pt medication per EMAR. Pt appreciative. Provided pt breakfast tray. Pt requesting coffee. Pt denies pain at this time. Pt states, "I am just sleepy." NADN. All SI precautions in place. Sitter near doorway in direct line of sight for observation. No other needs requested at this time.
--- NOTE | 2018-08-08 09:40 | NUR ---
Pt ate 100% of breakfast tray. Pt sleeping on hospital bed. NADN. No needs expressed. SI precautions remain in place. Sitter near doorway in direct line of sight for observation. Pt has unlabored respirations with even chest rise and fall.
--- NOTE | 2018-08-08 11:01 | NUR ---
Note undone in EDM - 08/08/18 at 1103 by [facility] Called patients pharmacy [facility] on [address] [place] [address], ph# [phone], to verify pt's home meds. Per pharmacist, "patient has not filled the Citalopram since January)". Updated med reconcilation. Called admitting MD and notified meds have been updated.
--- NOTE | 2018-08-08 11:03 | NUR ---
Undone note on wrong pt chart.
--- NOTE | 2018-08-08 13:07 | NUR ---
LATE NOTE ENTRY FOR 1215: Pt provided lunch tray. Pt appreciative. NADN. No needs expressed at this time. Pt eating lunch tray provided. Pt has even chest rise and fall. Sitter near doorway in direct line of sight for observation.
--- NOTE | 2018-08-08 14:30 | NUR ---
BREAK RN: pt laying on hospital bed with eyes closed, NAD with equal chest rise/fall, no needs at this time, pt remains in safe environment, sitter in view. iso precautions also remain in place.
--- NOTE | 2018-08-08 15:25 | NUR ---
Pt resting on hospital bed. NADN. No needs expressed. Sitter near doorway in direct line of sight for observation. Pt has even chest rise and fall.
--- NOTE | 2018-08-08 16:38 | NUR ---
Spoke to admitting MD toady on phone. Updated pt behavior to admitting MD. Pt having auditory and visual hallucinations that people are present in his room and pt making threats to people not in the room. Pt is not harming himself or any staff. ISHMAEL. Pt has even chest rise and fall and unlabored respirations. SI precautions in place. Sitter near doorway in direct line of sight for observation.
--- NOTE | 2018-08-08 16:45 | NUR ---
Provided pt medication per EMAR. Pt appreciative. NADN. No needs expressed. Sitter near doorway in direct line of sight for observation. Dinner tray ordered.
--- NOTE | 2018-08-08 18:03 | NUR ---
ATTEMPTED TO PERFORM EKG ON PT. PT REFUSED EKG. STATED "MY HEART IS FINE."
--- NOTE | 2018-08-08 18:42 | NUR ---
LATE NOTE MARILYN FOR 174: Dr. Canela at bedside gave verbal order to ED RN to obtain an EKG, if EKG does NOT show a prolonged QR interval, place order for Haldol 5mg every 8 hours IM prn agitation.
[2018-08-08] MEDS ORDERED: OLANZAPINE 10 MG TABLET ONE (18:44)
[2018-08-08] MEDS ORDERED: TRAZODONE 50MG TABLET ONE (18:44)
[2018-08-08] MEDS: OLANZAPINE 10 MG TABLET PO SCH (18:56)
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
--- NOTE | 2018-08-08 18:58 | NUR ---
Provided bedside report to SAROJ Kelly. All questions answered. SAROJ Kelly to assume care of pt.
[2018-08-08] MEDS ORDERED: HALOPERIDOL 5 MG/ML IM PRN (19:30)
--- NOTE | 2018-08-08 20:19 | NUR ---
NEW GOWN AND UNDERWEAR PROVIDED TO PT. PER REQUEST. LINEN ON BED CHANGED WELL. PT. CHANGING. REQESTING TRAZODEONE AND GABAPENTIN TO BE ADMIN AT ABOUT 0. DENIES OTHER NEEDS. ROOM REMAINS SECURED. SITTER IN DOORWAY. PT. CONTINUES TO TALK TO THE WALL IN THE ROOM IF HE IS HAVING A CONVERSATION WITH SOMEONE BUT IS VERY CALM/COOPERATIVE WITH STAFF.
[2018-08-08] MEDS ORDERED: NICOTINE 21 MG/24 HR PATCH.TD24 ONE (21:44)
[2018-08-08] MEDS: NICOTINE 21 MG/24 HR PATCH.TD24 TD SCH (21:52)
[2018-08-08] MEDS: TRAZODONE 150MG TABLET PO SCH (21:53)
--- NOTE | 2018-08-08 22:46 | NUR ---
PT. RESTING ON HOSPITAL BED WITH NADN. EYES CLOSED. EVEN, NON-LABORED REPIRATIONS VISIBLE. CALL LIGHT IN REACH. ALL SAETEY MEASURES OBSERVED. SITTER IN SAEED. ROOM REMAINS SECURED.
--- NOTE | 2018-08-08 23:25 | NUR ---
PT. PROVIDED WITH DECAF COFFEE PER REQUEST. URINAL EMPTIED. PT. DENIES OTHER NEEDS. NADN. ROOM REMAINS SECURED. SITTER IN SAEED.
--- NOTE | 2018-08-08 23:57 | NUR ---
PT. GIVEN CRACKERS AND PEANUT BUTTER ALONG WITH CRAN JUICE PER REQUEST. DENIES OTHER NEEDS. SITTER REMAINS IN SAEED. ROOM REMAINS SECURED.
--- NOTE | 2018-08-09 02:26 | NUR ---
PT. PROVIDED WITH A CUP OF DECAF COFFEE PER REQUEST. NADN. DENIES OTHER NEEDS. SITTER REMAINS IN SAEED. ROOM REMAINS SECURED. PT IS TALKING OUT LOUD IN ROOM AGAIN IS HE IS HAVING A CONVERSATION WITH SOMEONE. PT. CALM/COOPERATIVE WITH STAFF.
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
--- NOTE | 2018-08-09 05:28 | NUR ---
PT. RESTING ON HOSPITAL BED IN SUPINE POSITION. EVEN NON-LABORED RESPIRATIONS NOTED. PT. CONTINUES TO TALK TO SELF. THIS RN HAD EXPLAINED TO PT. A FEW TIMES DURING THIS SHIFT THAT MEDICATIONS CAN BE ADMINISTERED TO HELP CALM THE HALLUCINATIONS IF HE WILL ALLOW STAFF TO DO EKG. PT. VERBALIZED THAT HE IS "AFRAID OF WHAT THE ELECTRICAL SHOCK MIGHT DO TO ME." THIS RN EXPLAINED WHAT AN EKG IS AND THAT THERE IS NO RISK OF HARM AND IT'S JUST A PICTURE TO LOOK AT THE HEART. PT. CONTINUES TO ADAMANTLY REFUSE AN EKG AND STATES "I DON'T WANT THAT MEDICAION I JUST WANT SOME ATIVAN!". PT. UPDATED THAT ATIVAN IS NOT AVAILABLE. PT. REQUESTED THIS RN TO JUST LEAVE HIM ALONE. DENIES NEEDS. SITTER IN SAEED. ROOM SECURED.
--- NOTE | 2018-08-09 06:59 | NUR ---
REPORT TO SAROJ JETER TO ASSUME PT. CARE. PT. IS CURRENTLY RESTING ON HOSPITAL BED WITH EYES CLOSED. NADN. EVEN, NON-LABORED RESPIRATIONS VISIBLE. SITTER IN SAEED; ROOM SECURED. URINAL EMPTIED OF 800ML OF CLEAR YELLOW URINE.
--- NOTE | 2018-08-09 07:06 | NUR ---
REC BS REPORT PT RESTING NADN
--- NOTE | 2018-08-09 07:07 | NUR ---
SITTER IN THE SAEED EYES ON THE PT
[2018-08-09] MEDS ORDERED: LISINOPRIL 10 MG TABLET ONE ×2 (11:08→21:09)
[2018-08-09] MEDS ORDERED: SERTRALINE 50MG TABLET ONE (11:09)
[2018-08-09] MEDS ORDERED: GABAPENTIN 300 MG CAPSULE ONE ×3 (11:09→21:10)
[2018-08-09] MEDS: SERTRALINE 50MG TABLET PO SCH (11:12)
[2018-08-09] MEDS: LISINOPRIL 10 MG TABLET PO SCH ×2 (11:12→21:10)
[2018-08-09] MEDS: GABAPENTIN 300 MG CAPSULE PO SCH ×3 (11:12→21:11)
[2018-08-09] MEDS: PRAZOSIN 1 MG CAPSULE PO SCH (11:22)
--- NOTE | 2018-08-09 12:00 | NUR ---
PT RESTING ISHMAEL VALENTINE SITTER IN THE SAEED WATCHING THE PT
--- NOTE | 2018-08-09 18:26 | NUR ---
PT TO HAVE COURT ON 08-10
--- NOTE | 2018-08-09 18:58 | NUR ---
REPORT TO ANTELMO
[2018-08-09 19:44] LABS: BASOPHILS # (AUTO) 0.08 x10^3/uL (0-0.1); BASOPHILS % (AUTO) 1 % (0-1); EOSINOPHILS # (AUTO) 0.32 x10^3/uL (0-0.4); EOSINOPHILS % (AUTO) 4 % (1-7); LYMPHOCYTES % (AUTO) 31 % (22-44); MD NO; MEAN CORPUSCULAR HEMOGLOBIN 30.4 pg (27.5-34.5); MEAN CORPUSCULAR VOLUME 89.4 fL (81-97); MEAN PLATELET VOLUME 7.7 fL (7.4-10.4); MONOCYTES # (AUTO) 0.49 x10^3/uL (0.2-0.8); MONOCYTES % (AUTO) 5 % (2-9); NEUTROPHILS # (AUTO) 5.47 x10^3/uL (1.8-6.8); NEUTROPHILS % (AUTO) 60 % (42-75); PLATELET COUNT 227 x10^3/uL (130-400); RED BLOOD COUNT 4.65 x10^6/uL (4.38-5.82); RED CELL DISTRIBUTION WIDTH 14.5 % (9.4-14.8)
[2018-08-09 19:51] LABS: SALICYLATE LEVEL 3.8 mg/dL (2.8-20.0)
[2018-08-09 19:56] LABS: ACETAMINOPHEN < 2 mcg/mL (10-30)
[2018-08-09 20:00] LABS: MICROSCOPIC NOT IND
--- NOTE | 2018-08-09 20:00 | NUR ---
PT RESTING. VSS. SITTER AT BEDSIDE.
[2018-08-09] MEDS: TRAZODONE 150MG TABLET PO SCH (21:00)
--- NOTE | 2018-08-09 21:03 | NUR ---
SANDWICH GIVEN. PT RESTING ON GURNEY. SITTER AT BEDSIDE.
[2018-08-09] MEDS ORDERED: OLANZAPINE 10 MG TABLET ONE (21:09)
[2018-08-09] MEDS ORDERED: NICOTINE 21 MG/24 HR PATCH.TD24 ONE (21:09)
[2018-08-09] MEDS ORDERED: TRAZODONE 50MG TABLET ONE ×2 (21:09→22:41)
[2018-08-09] MEDS: OLANZAPINE 10 MG TABLET PO SCH (21:11)
[2018-08-09] MEDS: NICOTINE 21 MG/24 HR PATCH.TD24 TD SCH (21:12)
--- NOTE | 2018-08-09 22:50 | NUR ---
EVENING MEDICATIONS GIVEN. NICOTINE PATCH REMOVED AND NEW ONE PLACED TO LEFT DELTOID
--- NOTE | 2018-08-10 01:11 | NUR ---
PT SLEEPING ON HOSPITAL BED. SITTER AT BEDSIDE.
--- NOTE | 2018-08-10 03:15 | NUR ---
PT REMAINS SLEEPING. VSS. SITTER AT BEDSIDE.
--- NOTE | 2018-08-10 05:02 | NUR ---
PT REMAINS SLEEPING. SITTER AT BEDSIDE.
--- NOTE | 2018-08-10 06:14 | NUR ---
PT REMAINS SLEEPING. SITTER AT BEDSIDE.
--- NOTE | 2018-08-10 06:59 | NUR ---
REPORT TO BONNIE KYLE.
--- NOTE | 2018-08-10 06:59 | NUR ---
RECEIVED REPORT FROM ANTELMO KYLE. PT SLEEPING ON HOSPITAL BED, NAD WITH EQUAL CHEST RISE/FALL, NO NEEDS AT THIS TIME, PT REMAINS IN ISO PREC & IN SAFE ENVIRONMENT, SITTER IN VIEW.
[2018-08-10] MEDS ORDERED: LISINOPRIL 10 MG TABLET ONE ×2 (07:40→22:11)
[2018-08-10] MEDS ORDERED: SERTRALINE 50MG TABLET ONE (07:40)
[2018-08-10] MEDS ORDERED: GABAPENTIN 300 MG CAPSULE ONE ×2 (07:40→22:11)
--- NOTE | 2018-08-10 08:02 | NUR ---
PT CONTINUES SLEEPING ON HOSPITAL BED, NAD WITH EQUAL CHEST RISE/FALL, NO NEEDS AT THIS TIME, PT REMAINS IN ISO PREC & IN SAFE ENVIRONMENT, SITTER IN VIEW.
[2018-08-10] MEDS: LISINOPRIL 10 MG TABLET PO SCH ×2 (08:23→22:24)
[2018-08-10] MEDS: PRAZOSIN 1 MG CAPSULE PO SCH (08:23)
[2018-08-10] MEDS: SERTRALINE 50MG TABLET PO SCH (08:23)
[2018-08-10] MEDS: GABAPENTIN 300 MG CAPSULE PO SCH ×2 (08:23→22:23)
--- NOTE | 2018-08-10 08:30 | NUR ---
BREAKFAST TRAY GIVEN
--- NOTE | 2018-08-10 09:01 | NUR ---
PT ATE 100% OF BREAKFAST, USED BSC, CALM & COOPERATIVE WHILE AWAKE, BACK TO SLEEP ON HOSPITAL BED, RESPONDS APPROP TO STAFF, NAD, COMFORT MEASURES PROVIDED, PT REMAINS IN ISO PREC & IN SAFE ENVIRONMENT, SITTER IN VIEW.
--- NOTE | 2018-08-10 10:00 | NUR ---
PT SLEEPING ON HOSPITAL BED, NAD WITH EQUAL CHEST RISE/FALL, NO NEEDS AT THIS TIME, PT REMAINS IN ISO PREC & IN SAFE ENVIRONMENT, SITTER IN VIEW.
--- NOTE | 2018-08-10 13:03 | NUR ---
PT ATE 100% OF LUNCH GIVEN, CALM & COOPERATIVE WHILE AWAKE, UPRIGHT ON HOSPITAL BED, OCCAS DOZES OFF, RESPONDS APPROP TO STAFF, NAD, COMFORT MEASURES PROVIDED, PT REMAINS IN ISO PREC & IN SAFE ENVIRONMENT, SITTER IN VIEW.
--- NOTE | 2018-08-10 13:58 | NUR ---
PT REMIANS UPRIGHT ON HOSPITAL BED, OCCAS DOZES OFF, CALM & COOPERATIVE WHILE AWAKE, RESPONDS APPROP TO STAFF, NAD, COMFORT MEASURES PROVIDED, PT REMAINS IN ISO PREC & IN SAFE ENVIRONMENT, SITTER IN VIEW.
--- NOTE | 2018-08-10 15:02 | NUR ---
PT UPRIGHT ON HOSPITAL BED, OCCAS DOZES OFF, CALM & COOPERATIVE WHILE AWAKE, RESPONDS APPROP TO STAFF, NAD, COMFORT MEASURES PROVIDED, PT REMAINS IN ISO PREC & IN SAFE ENVIRONMENT, SITTER IN VIEW.
--- NOTE | 2018-08-10 16:30 | NUR ---
ATE 100% OF DINNER TRAY GIVEN
--- NOTE | 2018-08-10 18:02 | NUR ---
PT REMAINS UPRIGHT ON HOSPITAL BED, OCCAS DOZES OFF, CALM & COOPERATIVE WHILE AWAKE, RESPONDS APPROP TO STAFF, NAD, COMFORT MEASURES PROVIDED, PT REMAINS IN ISO PREC & IN SAFE ENVIRONMENT, SITTER IN VIEW.
--- NOTE | 2018-08-10 19:08 | NUR ---
RECEIVED REPORT FROM SAROJ WEEMS TO ASSUME CARE OF PT. PT. RESTING ON HOSPITAL BED WITH NADN. DENIES NEEDS AT THE MOMENT. ROOM IS SECURED AND SITTER IN SAEED.
--- NOTE | 2018-08-10 20:11 | NUR ---
PT. WAS PROVIDED WITH A SANDWICH FROM [employer] AT 2044 PER REQUEST. PT. ATE ALL OF SANDWICH. PT. LYING BACK DOWN RESTING ON BED WITH NADN. ALL SAFETY MEASURES OBSERVED.
[2018-08-10] MEDS ORDERED: NICOTINE 21 MG/24 HR PATCH.TD24 ONE (22:11)
[2018-08-10] MEDS ORDERED: OLANZAPINE 10 MG TABLET ONE (22:11)
[2018-08-10] MEDS: TRAZODONE 150MG TABLET PO SCH (22:24)
[2018-08-10] MEDS: OLANZAPINE 10 MG TABLET PO SCH (22:24)
[2018-08-10] MEDS: NICOTINE 21 MG/24 HR PATCH.TD24 TD SCH (22:24)
--- NOTE | 2018-08-10 22:29 | NUR ---
PT. MEDICATED WITH NIGHT MEDS PER JUN AND PROVIDED WITH CRACKERS AND JUICE PER REQUEST. URINAL EMPTIED. PT. DENIES FURTHER NEEDS AT THIS TIME. NADN. HUBBARD REMAINS IN SAEED. ROOM SECURED.
--- NOTE | 2018-08-11 00:50 | NUR ---
PT. RESTING ON HOSPITAL BED WITH EYES CLOSED. EVEN, NON-LABORED RESPIRATIONS NOTED. NADN. SITTER IN SAEED. ROOM REMAINS SECURED.
--- NOTE | 2018-08-11 02:50 | NUR ---
PT. RESTING ON HOSPITAL BED WITH EYES CLOSED. EVEN CHEST RISE/FALL VISIBLE. NADN.
--- NOTE | 2018-08-11 04:52 | NUR ---
PT. HAS BEEN RESING ON HOSPITAL BED WITH EYES CLOSED WITH NADN. NO CHANGE IN PT. CONDITION.
--- NOTE | 2018-08-11 06:49 | NUR ---
PT. PROVIDED WITH COFFEE PER REQUEST. DENIES OTHER NEEDS. URINAL EMPTIED. NADN.
--- NOTE | 2018-08-11 07:00 | NUR ---
PT. IS RESTING WITHOUT CONCERNS. PT. WAS GIVEN COFFEE BY MARVIN QUINN. PT. REMAINS CALM AND COOPERATIVE. PT.'S ROOM IS SECURED AND SAFETY MEASURES ARE MAINTAINED. SITTER IS OUTSIDE OF THE ROOM. CARE ASSUMED.
--- NOTE | 2018-08-11 07:59 | NUR ---
UNISHEAR OPERATOR: BREAK TRAYS DELIVERED, PT IN BED IN SUICIDE SECURED ROOM W/ SITTER AT DOORWAY, PT'S BELONGINGS SECURED BY PREVIOUS SHIFT.
[2018-08-11] MEDS: PRAZOSIN 1 MG CAPSULE PO SCH (09:00)
--- NOTE | 2018-08-11 09:10 | NUR ---
PT. IS IN COURT, MORNING MEDICATIONS WILL BE GIVEN WHEN THE PT. RETURNS TO THE ER.
--- NOTE | 2018-08-11 11:53 | NUR ---
PT. RETURNS FROM COURT AND IS RESTING WITH THE SITTER OUTSIDE OF ROOM.
[2018-08-11] MEDS ORDERED: SERTRALINE 50MG TABLET ONE (12:57)
[2018-08-11] MEDS ORDERED: LISINOPRIL 10 MG TABLET ONE (12:57)
[2018-08-11] MEDS ORDERED: GABAPENTIN 300 MG CAPSULE ONE ×2 (12:58→13:03)
[2018-08-11] MEDS: LISINOPRIL 10 MG TABLET PO SCH (13:01)
[2018-08-11] MEDS: SERTRALINE 50MG TABLET PO SCH (13:01)
[2018-08-11] MEDS: GABAPENTIN 300 MG CAPSULE PO SCH (13:01)
--- NOTE | 2018-08-11 13:05 | NUR ---
PT.'S LINENS WERE CHANGED. PT. WAS GIVEN LUNCH AND HIS MORNING MEDS. PT. IS COOPERATIVE AND RESTING WITHOUT CONCERNS.
--- NOTE | 2018-08-11 17:02 | NUR ---
PT. IS WATCHING TV WITHOUT CONCERNS. PT. WAS GIVEN COFFEE. PT.'S VITALS ARE STABLE.
--- NOTE | 2018-08-11 17:44 | NUR ---
PT. REPORT WAS GIVEN. DINNER IS ORDERED.
--- NOTE | 2018-08-11 19:23 | NUR ---
Pt report from Purvi KYLE. This RN to assume care of pt. Pt resting comfortably on hospital bed, watching tv. No apparent needs. Roller doors in place. Sitter in hallway.
--- NOTE | 2018-08-11 19:50 | NUR ---
Given Decaf coffee per request. Urinal emptied at this time. No other immediate needs.
--- NOTE | 2018-08-11 20:36 | NUR ---
Pt resting comfortably on hospital bed, watching tv. No apparent needs. Roller doors in place. Sitter in hallway.
--- NOTE | 2018-08-11 21:31 | NUR ---
Pt resting comfortably on hospital bed, watching tv. No apparent needs. Roller doors in place. Sitter in hallway.
--- NOTE | 2018-08-11 23:15 | NUR ---
Pt sleeping comfortably. Rr even and unlabored. Nadn.
--- NOTE | 2018-08-12 00:35 | NUR ---
Pt sleeping comfortably. Rr even and unlabored. Nadn.
--- NOTE | 2018-08-12 00:45 | NUR ---
Report to Leticia KYLE.
--- NOTE | 2018-08-12 00:57 | NUR ---
PT. RESTING ON HOSPITAL BED WITH NADN. EVEN, NON-LABROED RESPIRATIONS VISIBLE. EYES CLOSED. ROOM SECURED AND SITTER IN SAEED.
--- NOTE | 2018-08-12 01:55 | NUR ---
PT. CONTINUES RESTING ON HOSPITAL BED WITH EYES CLOSED. EVEN CHEST RISE/FALL VISIBLE. SITTER REMAINS IN SAEED; ROOM SECURED.
--- NOTE | 2018-08-12 02:56 | NUR ---
PT. RESTING ON BED WITH EYES CLOSED. LEFT SIDE LYING. RESP VISIBLE AND NON-LABORED. 600ML OF CLEAR YELLOW URINE EMPTIED FROM URINAL. ROOM REMAINS SECURED. SITTER IN SAEED.
--- NOTE | 2018-08-12 03:55 | NUR ---
PT. RESTING ON GURNEY WITH EYES CLOSED. LEFT SIDE LYING. NON-LABORED RESPIRATIONS. ALL SAFETY MEASURES MAINTAINED. SITTER IN SAEED. ROOM SECURED.
--- NOTE | 2018-08-12 05:10 | NUR ---
PT. PROVIDED WITH COFFEE PER REQUEST. 800ML OF CLEAR YELLOW URINE EMPTIED FROM URINAL. PT. DENIES OTHER NEEDS AT THIS TIME. SITTER IN SAEED; ROOM SECURED.
[2018-08-12] MEDS: TRAZODONE 150MG TABLET PO SCH ×2 (05:12→21:00)
[2018-08-12] MEDS: OLANZAPINE 10 MG TABLET PO SCH ×2 (05:13→21:12)
[2018-08-12] MEDS: LISINOPRIL 10 MG TABLET PO SCH ×3 (05:13→21:00)
[2018-08-12] MEDS: NICOTINE 21 MG/24 HR PATCH.TD24 TD SCH ×2 (05:14→22:59)
--- NOTE | 2018-08-12 07:01 | NUR ---
REPORT TO SAROJ LEE TO ASSUME CARE OF PT. PT. WITH NADN. DENIES NEEDS.
[2018-08-12] MEDS ORDERED: SERTRALINE 50MG TABLET ONE (07:43)
[2018-08-12] MEDS ORDERED: LISINOPRIL 10 MG TABLET ONE ×2 (07:43→21:07)
--- NOTE | 2018-08-12 07:47 | NUR ---
Patient laying in bed awake, demonstrates independent mobility in bed. Sitter remains within full view of patient for patient's safety. Breakfast tray ordered and medication ordered from pharmacy. No complaints or requests from patient at this time, plan of care updated, patient is currently calm and cooperative.
[2018-08-12] MEDS: PRAZOSIN 1 MG CAPSULE PO SCH (08:10)
[2018-08-12] MEDS: SERTRALINE 50MG TABLET PO SCH (08:10)
[2018-08-12] MEDS ORDERED: GABAPENTIN 300 MG CAPSULE ONE ×2 (08:11→21:07)
[2018-08-12] MEDS: GABAPENTIN 300 MG CAPSULE PO SCH ×3 (08:11→21:11)
--- NOTE | 2018-08-12 08:14 | NUR ---
Breakfast tray and coffee given with morning medications, no further requests at this time. Patient is compliant, denies hallucinations, denies homicidal or suicidal ideation.
--- NOTE | 2018-08-12 09:29 | NUR ---
Patient requests underwear, underwear provided. Patient voided 500mL clear urine.
--- NOTE | 2018-08-12 11:01 | NUR ---
Patient taken to restroom in wheelchair, had a bowel movement, returned to bed.
--- NOTE | 2018-08-12 12:31 | NUR ---
BREAK RN: PT PROVIDED WITH MEAL TRAY, FLUIDS. PT AO X 4. SKIN PWD. RESP EVEN AND UNLABORED. GARAGE DOORS DOWN IN ROOM. BELONGINGS IN LOCKED LOCKERS. SITTER OUTSIDE OF DOOR.
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
--- NOTE | 2018-08-12 14:43 | NUR ---
PATIENT HAS SITTER OUTSIDE ROOM. HE IS QUIET AND COOPERATIVE. GOT HIM COFFEE REQUESTED. NO COMPLICATIONS.
--- NOTE | 2018-08-12 15:08 | NUR ---
PATIENT DIET TRAY ORDERED.
[2018-08-12] MEDS ORDERED: IBUPROFEN 600 MG TABLET ONE (18:07)
[2018-08-12] MEDS: IBUPROFEN 800 MG TABLET PO PRN (18:08)
--- NOTE | 2018-08-12 18:08 | NUR ---
patient having a headache, requested prn ibuprofen. gave as ordered. patient is calm and agreeable. ate all of dinner.
--- NOTE | 2018-08-12 19:06 | NUR ---
report received from lilli cole.
--- NOTE | 2018-08-12 19:32 | NUR ---
PT PROVIDED COFFEE AND SNACKS AT THIS TIME.
--- NOTE | 2018-08-12 20:50 | NUR ---
PT RESTING IN HOSPITAL BED. PT'S AOX4. RESPS EVEN AND UNLABORED. PT DENIES ANY NEEDS AND CONCERNS AT THIS TIME.
[2018-08-12] MEDS ORDERED: TRAZODONE 50MG TABLET ONE (21:07)
[2018-08-12] MEDS ORDERED: OLANZAPINE 10 MG TABLET ONE (21:07)
--- NOTE | 2018-08-12 21:17 | NUR ---
PT MEDICATED PER EMAR. PT TOLERATED WELL.
[2018-08-12] MEDS ORDERED: NICOTINE 21 MG/24 HR PATCH.TD24 ONE (22:58)
--- NOTE | 2018-08-12 23:01 | NUR ---
NICOTINE PATCH REPLACED AT THIS TIME.
--- NOTE | 2018-08-13 | NUR ---
PT PROVIDED SOME SNACKS AND COFFEE AT THIS TIME. PT'S AOX4. RESPS EVEN AND UNLABORED.
--- NOTE | 2018-08-13 02:19 | NUR ---
PT SLEEPING IN HOSPITAL BED. RESPS EVEN AND UNLABORED. SITTER MONITORING FROM [facility]ALLWAY FOR SAFETY. ROOM REMAINS SECURE.
--- NOTE | 2018-08-13 03:10 | NUR ---
PT SLEEPING IN HOSPITAL BED. RESPS EVEN AND UNLABORED. SITTER MONITORING FROM [facility]ALLWAY FOR SAFETY. ROOM REMAINS SECURE.
--- NOTE | 2018-08-13 04:13 | NUR ---
PT SLEEPING IN HOSPITAL BED. RESPS EVEN AND UNLABORED. SITTER MONITORING FROM [facility]ALLWAY FOR SAFETY. ROOM REMAINS SECURE.
--- NOTE | 2018-08-13 05:20 | NUR ---
ED DIET TRAY ORDERED.
--- NOTE | 2018-08-13 06:11 | NUR ---
PT STILL SLEEPING IN HOSPITAL BED. RESPS EVEN AND UNLABORED. SITTER MONITORING FROM HALLWAY FOR SAFETY. ROOM REMAINS SECURE.
--- NOTE | 2018-08-13 06:50 | NUR ---
REPORT GIVEN TO VASHTI KYLE.
--- NOTE | 2018-08-13 07:00 | NUR ---
REPORT RECEIVED FROM RN NAIN, PT SLEEPING ON HOSPISTAL BED. RESPS EVEN AND UNLABORED. SITTER MONITORING FROM [facility] FOR SAFETY. ROOM REMAINS SECURE.
[2018-08-13] MEDS ORDERED: LISINOPRIL 10 MG TABLET ONE ×2 (07:35→21:23)
[2018-08-13] MEDS ORDERED: SERTRALINE 50MG TABLET ONE (07:35)
[2018-08-13] MEDS ORDERED: GABAPENTIN 300 MG CAPSULE ONE ×4 (07:35→21:29)
--- NOTE | 2018-08-13 07:39 | NUR ---
MINIPRES NOT IN ED OMNICELL, REQUESTED FROM PHARMACY.
[2018-08-13] MEDS: PRAZOSIN 1 MG CAPSULE PO SCH (08:03)
[2018-08-13] MEDS: SERTRALINE 50MG TABLET PO SCH (08:03)
[2018-08-13] MEDS: GABAPENTIN 300 MG CAPSULE PO SCH ×3 (08:03→21:00)
[2018-08-13] MEDS: LISINOPRIL 10 MG TABLET PO SCH ×3 (08:03→21:00)
[2018-08-13] MEDS ORDERED: IBUPROFEN 800 MG TABLET ONE ×3 (08:22→21:29)
[2018-08-13] MEDS: IBUPROFEN 800 MG TABLET PO PRN ×3 (08:24→22:51)
--- NOTE | 2018-08-13 08:35 | NUR ---
PT GIVEN SI MEAL TRAY, CONSUMED APPROX 30%, PT TOLERATED WELL. PT DENIES SI/HI. PT IS A&OX4, NEURO INTACT. PT REPORTS HEADACHE LEVEL 6/10, MEDICATED WITH MOTRIN FOR PAIN. PT DENIES OTHER PAIN WITH EXCEPTION TO PHANTOM PAIN IN LEFT LE, WHICH IS BASELINE FOR HIM. PT STATES LBM 2 DAYS AGO, DECLINES STOOL SOFTENER. PT REPORTS "IT TAKES ME A LONG TIME TO PEE" HOWEVER HAS JUST VOIDED 800ML CONCENTRATED YELLOW URINE WITHOUT DIFFICULTY. PT REFUSES BLADDER SCAN FOR POST VOID RESIDUAL. SITTER MONITORING FROM [facility] FOR SAFETY, ROOM REMAINS SECURE.
--- NOTE | 2018-08-13 08:51 | NUR ---
REPORT GIVEN TO SAROJ RODRIGUEZ.
--- NOTE | 2018-08-13 09:19 | NUR ---
REPORT FROM SAROJ KINGSTON. ASSUMED CARE OF PATIENT AT THIS TIME. PATIENT ASSISTED TO BATHROOM BY EMT. PATIENT BACK TO BED, ALL SAFETY MEASURES IN PLACE. SITTER AT DOORWAY WITH PATIENT IN SIGHT.
--- NOTE | 2018-08-13 11:01 | NUR ---
PATIENT PROVIDED WATER PER REQUEST, SITTER AT DOORWAY. NO ADDITIONAL NEEDS AT THIS TIME. PATIENT CALM AND COOPERATIVE.
--- NOTE | 2018-08-13 12:06 | NUR ---
LUNCH PROVIDED TO PATIENT, ALL SAFETY MEASURES IN PLACE. COFFEE PROVIDED TO PATIENT PER REQUEST, PATIENT CALM/COOPERATIVE, NO ADDITIONAL NEEDS, SITTER AT DOORWAY WITH PATIENT IN SIGHT.
--- NOTE | 2018-08-13 14:07 | NUR ---
PATIENT PROVIDED COFFEE PER REQUEST, SITTER AT DOORWAY. PATIENT SITTING IN GURNEY, CALM, COOPERATIVE, NO NEEDS AT THIS TIME. Addendum: 08/13/18 at 1710 by YELITZA CORRECTION: HOSPITAL BED.
--- NOTE | 2018-08-13 15:27 | NUR ---
BREAK RN: Pt resting quietly on gurney, watching television. Pt medicated per JUN. Sitter remains outside of room for pt safety.
--- NOTE | 2018-08-13 17:10 | NUR ---
PATIENT SLEEPING COMFORTABLY IN HOSPITAL BED, VISIBLE CHEST RISE AND FALL, NAD NOTED. SITTER AT DOORWAY WITH PATIENT IN SIGHT.
--- NOTE | 2018-08-13 18:02 | NUR ---
PATIENT PROVIDED DINNER TRAY, ALL SAFETY MEASURES IN PLACE, SITTER AT DOORWAY. PATIENT SITTING UP IN HOSPITAL BED EATING DINNER, COFFEE PROVIDED PER REQUEST. NO ADDITIONAL NEEDS AT THIS TIME.
--- NOTE | 2018-08-13 20:22 | NUR ---
PATIENT PROVIDED SANDWICH PER REQUEST. ALL SAFETY MEASURES IN PLACE. SITTER AT BEDSIDE.
--- NOTE | 2018-08-13 20:54 | NUR ---
ASSUMED CARE FOR THIS PT. PT WITH SITTER AT BEDSIDE AND EATING A MEAL. PT REMAINS ON A HOLD IN THE ED.
[2018-08-13] MEDS: OLANZAPINE 10 MG TABLET PO SCH (21:00)
[2018-08-13] MEDS: TRAZODONE 150MG TABLET PO SCH (21:00)
[2018-08-13] MEDS ORDERED: OLANZAPINE 10 MG TABLET ONE (21:23)
[2018-08-13] MEDS ORDERED: TRAZODONE 50MG TABLET ONE (21:24)
[2018-08-13] MEDS ORDERED: IBUPROFEN 600 MG TABLET ONE (21:25)
[2018-08-13] MEDS ORDERED: NICOTINE 21 MG/24 HR PATCH.TD24 ONE (21:29)
--- NOTE | 2018-08-13 22:00 | NUR ---
PT ASLEEP SITTER AT BEDSIDE
[2018-08-13] MEDS: NICOTINE 21 MG/24 HR PATCH.TD24 TD SCH (22:50)
--- NOTE | 2018-08-13 23:00 | NUR ---
PT ASLEEP AWOKE AND WAS MEDICATED WITH MOTRIN. SITTER AT BEDSIDE.
--- NOTE | 2018-08-14 00:30 | NUR ---
PT ASLEEP VSS AND SITTER AT BEDSIDE.
--- NOTE | 2018-08-14 01:31 | NUR ---
PT GIVEN SNACK AND BLANKET
--- NOTE | 2018-08-14 02:30 | NUR ---
PT ASLEEP VSS AND SITTER AT BEDSIDE
--- NOTE | 2018-08-14 03:30 | NUR ---
pt up to br no distress sitter at bedside water and a snack provived per pt request.
--- NOTE | 2018-08-14 04:30 | NUR ---
PT ASLEEP WITH NO CHANGE IN STATUS.
--- NOTE | 2018-08-14 05:41 | NUR ---
PT AWAKE REPORTS NO NEEDS AT THIS TIME SITTER AT BEDSIDE.
--- NOTE | 2018-08-14 07:00 | NUR ---
received report from syeda cole. pt resting in bed. sitter outside of room. room secured.
--- NOTE | 2018-08-14 08:30 | NUR ---
vitals taken and stable. pt requesting motrin for dental pain on left upper tooth pt given meal tray. assesment competed.
[2018-08-14] MEDS ORDERED: IBUPROFEN 200 MG TABLET ONE (08:32)
[2018-08-14] MEDS ORDERED: IBUPROFEN 800 MG TABLET ONE ×2 (08:33→22:32)
[2018-08-14] MEDS: IBUPROFEN 800 MG TABLET PO PRN ×2 (08:35→22:32)
[2018-08-14] MEDS: PRAZOSIN 1 MG CAPSULE PO SCH (08:46)
[2018-08-14] MEDS: LISINOPRIL 10 MG TABLET PO SCH ×2 (08:47→22:29)
[2018-08-14] MEDS: SERTRALINE 50MG TABLET PO SCH (08:47)
[2018-08-14] MEDS ORDERED: GABAPENTIN 300 MG CAPSULE ONE ×2 (08:48→22:26)
[2018-08-14] MEDS: GABAPENTIN 300 MG CAPSULE PO SCH ×3 (08:48→22:28)
--- NOTE | 2018-08-14 09:30 | NUR ---
PT RESTING IN BED AND SITTER OUTSIDE.
--- NOTE | 2018-08-14 10:30 | NUR ---
PT RESTING IN BED. 100% BREAKFAST EATEN. PT USED URINAL AND 600MLS EMPTIED. PT GIVE 3 WATER BOTTLES AT BEDSIDE.
--- NOTE | 2018-08-14 10:58 | NUR ---
REPORT GIVEN TO CHANELL. DR. MAGANA AT BEDSIDE. DR. MAGANA INFORMED THAT PATIENT HAS LEFT FACIAL SWELLING DUE TO A "BAD TOOTH." DR. MAGANA REQUESTING HEAD CT AND PATIENT REFUSING. DR. MAGANA THEN ORDERED ANTIBIOTICS AUGMENTIN FOR DENTAL PAIN. REPORT GIVEN TO CHANELL KYLE.
--- NOTE | 2018-08-14 11:17 | NUR ---
REPORT FROM GLENDA KYLE, PT RESTING IN [facility]. REFUSING CT AT THIS TIME, ABX ORDERED BY .
[2018-08-14] MEDS ORDERED: AMOXICILLIN/CLAV 875-125MG TABLET ONE ×2 (11:50→22:25)
[2018-08-14] MEDS: AMOXICILLIN/CLAV 875-125MG TABLET PO SCH ×2 (11:51→22:28)
--- NOTE | 2018-08-14 12:12 | NUR ---
PT GIVEN MEAL TRAY, PT REMOVED DRESSING FROM STUMP AND STATES "I NEED TO POP IT", PT INSTRUCTED NOT TO DO THAT AND RISK OF INFECTION. PT REPLACED DRESSING.
[2018-08-14] MEDS ORDERED: BACITRACIN ZINC OINT 500U/GM, 0.9 GM ONE (12:30)
--- NOTE | 2018-08-14 13:10 | NUR ---
PT SLEEPING IN [facility], MEDICATED PER JUN. NO NEEDS AT THIS TIME, SITTER AT BEDSIDE
--- NOTE | 2018-08-14 14:15 | NUR ---
PT SLEEPING IN BED, EQUAL CHEST RISE AND FALL, SITTER AT DOORWAY
--- NOTE | 2018-08-14 15:08 | NUR ---
PT SLEEPING IN HOSPITAL BED, OFFERED SHOWER, NEW SHEETS AND GOWN, PT DECLINED AT THIS TIME. SITTER AT BEDSIDE
--- NOTE | 2018-08-14 16:02 | NUR ---
PT SLEEPING IN BED, EQUAL CHEST RISE AND FALL. SITTER AT BEDSIDE
--- NOTE | 2018-08-14 17:08 | NUR ---
PT RESTING IN BED, SITTER AT DOORWAY, NO NEEDS AT THIS TIME
--- NOTE | 2018-08-14 18:06 | NUR ---
PT WATCHING TV IN HOSPITAL BED, NAD, NO NEEDS AT THIS TIME, SITTER AT DOORWAY
--- NOTE | 2018-08-14 19:10 | NUR ---
DIET TRAY ORDERED, PT RESTING IN BED
--- NOTE | 2018-08-14 20:05 | NUR ---
PT SLEEPING IN BED, EQUAL CHEST RISE AND FALL, SITTER AT DOORWAY
[2018-08-14] MEDS: TRAZODONE 150MG TABLET PO SCH (21:00)
--- NOTE | 2018-08-14 21:02 | NUR ---
PT SLEEPING IN BED, EQUAL CHEST RISE AND FALL, SITTER AT DOORWAY. NO CHANGES
--- NOTE | 2018-08-14 22:04 | NUR ---
PT SLEEPING IN BED, EQUAL CHEST RISE AND FALL, SITTER AT DOORWAY
[2018-08-14] MEDS ORDERED: LISINOPRIL 10 MG TABLET ONE (22:25)
[2018-08-14] MEDS ORDERED: OLANZAPINE 10 MG TABLET ONE (22:26)
[2018-08-14] MEDS ORDERED: TRAZODONE 50MG TABLET ONE (22:26)
[2018-08-14] MEDS: OLANZAPINE 10 MG TABLET PO SCH (22:29)
--- NOTE | 2018-08-14 22:42 | NUR ---
PT REQUESTING PAIN MEDICATION, GIVEN MOTRIN
--- NOTE | 2018-08-14 23:03 | NUR ---
REPORT FROM ALENA ASSUMED CARE OF PT, PT RESTING ON BED IN NAD
--- NOTE | 2018-08-15 00:41 | NUR ---
PT CONTINUES TO SLEEP IN NAD
--- NOTE | 2018-08-15 04:50 | NUR ---
pt sleeping in nad
--- NOTE | 2018-08-15 06:32 | NUR ---
PT SLEPT THROUGH THE NIGHT IN NAD
--- NOTE | 2018-08-15 07:00 | NUR ---
Assumed c/o pt from SAROJ Mehta. Pt is sleeping at this time. Room secure, sitter outside doorway.
[2018-08-15] MEDS ORDERED: NICOTINE 21 MG/24 HR PATCH.TD24 ONE (07:35)
[2018-08-15] MEDS ORDERED: LISINOPRIL 10 MG TABLET ONE ×2 (07:35→21:44)
[2018-08-15] MEDS ORDERED: AMOXICILLIN/CLAV 875-125MG TABLET ONE ×2 (07:35→21:44)
[2018-08-15] MEDS ORDERED: GABAPENTIN 300 MG CAPSULE ONE ×2 (07:35→09:30)
[2018-08-15] MEDS ORDERED: SERTRALINE 50MG TABLET ONE (07:35)
--- NOTE | 2018-08-15 08:00 | NUR ---
Awake, meal tray delivered. Void 750ml clear yellow urine x 1. Requests coffee.
--- NOTE | 2018-08-15 08:50 | NUR ---
REPORT FROM AUTUMN KYLE PATIENT A LEGAL HOLD ROOM SECURED W/ PSYCHIATRIC PRECAUTIONS 1:1 SITTER AT BEDSIDE PATIENT DENIES COMPLIANTS EATING BREAKFAST W/OUT DIFFICULTY
[2018-08-15] MEDS: NICOTINE 21 MG/24 HR PATCH.TD24 TD SCH (09:13)
[2018-08-15] MEDS: PRAZOSIN 1 MG CAPSULE PO SCH (09:13)
[2018-08-15] MEDS: AMOXICILLIN/CLAV 875-125MG TABLET PO SCH ×2 (09:13→22:19)
[2018-08-15] MEDS: GABAPENTIN 300 MG CAPSULE PO SCH ×2 (09:32→22:19)
[2018-08-15] MEDS: LISINOPRIL 10 MG TABLET PO SCH ×2 (09:33→22:19)
[2018-08-15] MEDS: SERTRALINE 50MG TABLET PO SCH (09:33)
--- NOTE | 2018-08-15 09:50 | NUR ---
PATIENT A LEGAL HOLD ROOM SECURED W/ PSYCHIATRIC PRECAUTIONS 1:1 SITTER AT BEDSIDE MEDICATED PER EMAR HELPED PATIENT CHANGE TELEVISION CHANNEL AND SAT AND SPOKE TO HIM AWHILE ALLOWING HIM TO VENT AMPUTEE SITE ASSESSED-HEALING WOUND TO MEDIAL PORTION NOTED (SKIN CLOSED/REDDENED/BUT BLANCHES) UPDATED ON POC
--- NOTE | 2018-08-15 11:36 | NUR ---
PATIENT A LEGAL HOLD ROOM SECURED W/ PSYCHIATRIC PRECAUTIONS 1:1 SITTER AT BEDSIDE UPDATED ON POC (ATTEMPTING TO FIND FACILITY FOR PATIENT)
--- NOTE | 2018-08-15 13:52 | NUR ---
PATIENT PROVIDED W/ WHEELCHAIR TO TRANSFER TO RESTROOM. PATIENT ABLE TO INDEPENDENTLY TRANSFER FROM BED TO WHEELCHAIR TO TOILET. HAD NORMAL BM ATE ALL OF LUNCH UPDATED ON POC (THROUGHPUT ATTEMPTING LOCATE ACCEPTING FACILITY WITHIN UNKNOWN ETA) PATIENT A LEGAL HOLD ROOM SECURED W/ PSYCHIATRIC PRECAUTIONS 1:1 SITTER AT BEDSIDE NO COMPLIANTS AT THIS TIME/RESTING SOUNDLY
--- NOTE | 2018-08-15 15:00 | NUR ---
REPORT TO FELICIA KYLE RESTING COMFORTABLY ON HOSPITAL BED UPDATED ON POC (DETAILS W/ OBTAINING MENTAL HEALTH FACILITY BED REMAIN ON HOLD W/ PSYCHIATRIC PRECAUTIONS W/ 1:1 SITTER
--- NOTE | 2018-08-15 18:09 | NUR ---
Pt given dinner try and multiple cups of decaf coffee, water. Urinals emptied and clean ones given to pt. Pt offered shower, states last time he tried it was too cold. RN informed pt water temp felt hot when assessed today, pt states he may want to try a shower again later, pt agrees to let sitter know when he would like to shower.
[2018-08-15] MEDS ORDERED: BACITRACIN ZINC OINT 500U/GM, 0.9 GM ONE (20:51)
--- NOTE | 2018-08-15 21:37 | NUR ---
Pt given bacitracin and RN wrapped small wound to stump. pt given lotion per request.
[2018-08-15] MEDS ORDERED: GABAPENTIN 400 MG CAPSULE ONE ×2 (21:39→21:44)
[2018-08-15] MEDS ORDERED: OLANZAPINE 10 MG TABLET ONE (21:44)
[2018-08-15] MEDS: OLANZAPINE 10 MG TABLET PO SCH (22:19)
[2018-08-15] MEDS: TRAZODONE 150MG TABLET PO SCH (22:19)
--- NOTE | 2018-08-15 22:42 | NUR ---
Pt wheeled to shower room, given towels, washcloths, soap, new clean gown. Linens on bed changed, housekeeping to room to sweep and mop floor. Pt back to room, bacitracin and bandage placed on wound.
--- NOTE | 2018-08-15 23:06 | NUR ---
Pt voiced concern about how long he will be stuck in ED for. Pt educated about legal hold and continued legal hold and inability for [facility] to ever accept pt due to hx of MRSA. Pt calm, cooperative.
--- NOTE | 2018-08-15 23:07 | NUR ---
Sitter remains at door watching pt, pt denies any needs/concerns.
--- NOTE | 2018-08-16 00:24 | NUR ---
Pt given sandwich, chips, soda per request. Pt remains calm, cooperative. Sitter at door watching pt
--- NOTE | 2018-08-16 01:36 | NUR ---
Pt sleeping on gurney, sitter remains at door watching pt
--- NOTE | 2018-08-16 02:19 | NUR ---
PT RESTING ON HOSPITAL BED WITH EYES CLOSED, NADN, EQUAL CHEST RISE/FALL OBSERVED, ROOM SECURED, SITTER AT DOORWAY FOR CONTINOUS MONITORING Addendum: 08/16/18 at 0302 by JOSELUIS [id number] LATE ENTRY - ASSUMED PT CARE AT THIS TIME.
--- NOTE | 2018-08-16 03:17 | NUR ---
PT RESTING WITH EYES CLOSED, EQUAL CHEST RISE AND FALL OBSERVED, SITTER AT BEDSIDE FOR CONTINOUS MONITORING
--- NOTE | 2018-08-16 04:06 | NUR ---
PT RESTING ON HOSPITAL BED WITH EYES CLOSED, PT REPOSITIONED SELF IN BED, , EQUAL CHEST RISE/FALL OBSERVED, SITTER AT DOORWAY FOR CONTINOUS MONITORING
--- NOTE | 2018-08-16 04:57 | NUR ---
PT RESTING CALMLY, EQUAL CHEST RISE AND FALL OBSERVED, SITTER AT BEDSIDE FOR CONTINOUS MONITORING
--- NOTE | 2018-08-16 05:58 | NUR ---
PT RESTING ON HOSPITAL BED WITH EYES CLOSED, OPENS EYES EASILY TO VERBAL RESPONSE, DENIES NEEDS AT THIS TIME, SITTER AT DOORWAY FOR CONTINOUS MONITORING
--- NOTE | 2018-08-16 06:53 | NUR ---
REPORT GIVEN TO SAROJ GAFFNEY
--- NOTE | 2018-08-16 07:07 | NUR ---
PATIENT AWAKE TO VOICE. REQUESTED COFFEE. GIVEN COFFEE. AWARE OF PLAN OF CARE
[2018-08-16] MEDS ORDERED: SERTRALINE 50MG TABLET ONE (08:27)
[2018-08-16] MEDS ORDERED: LISINOPRIL 10 MG TABLET ONE ×2 (08:27→20:36)
[2018-08-16] MEDS ORDERED: AMOXICILLIN/CLAV 875-125MG TABLET ONE ×2 (08:28→20:35)
[2018-08-16] MEDS: SERTRALINE 50MG TABLET PO SCH (08:30)
[2018-08-16] MEDS: AMOXICILLIN/CLAV 875-125MG TABLET PO SCH ×2 (08:30→20:42)
[2018-08-16] MEDS: LISINOPRIL 10 MG TABLET PO SCH ×2 (08:30→20:42)
--- NOTE | 2018-08-16 08:34 | NUR ---
PATIETN GIVEN BREAKFAST TRAY. PATIETN AWAKE AND COOPERATIVE. NO DISTRESS. MEDICATEIONS AVAIL IN ER GIVEN, ORDERED PROZOSIN FROM PHARM. PATIENT GIVEN MEAL TRAY. ROOM CLEANED BY HOUSEKEEPING
--- NOTE | 2018-08-16 08:37 | NUR ---
APPROX 800 ML CLEAAR YELLOW URINE EMPTIED FROM URINAL
[2018-08-16] MEDS: PRAZOSIN 1 MG CAPSULE PO SCH (08:42)
--- NOTE | 2018-08-16 09:48 | NUR ---
PATIETN ATE BREAKFAST WELL. NO DISTRESS, SLEEPING AT THIS TIME WITH SITTER AT BEDSIDE.
--- NOTE | 2018-08-16 10:50 | NUR ---
patient requested coffee. This was provided for patient. Lili at
--- NOTE | 2018-08-16 10:52 | NUR ---
meal tray ordered for patient
[2018-08-16] MEDS ORDERED: NICOTINE 21 MG/24 HR PATCH.TD24 ONE ×2 (11:15→20:37)
--- NOTE | 2018-08-16 11:48 | NUR ---
Per Karlie at [facility], pt has no known history of MRSA going back to 2000. No positive cultures there ever.
--- NOTE | 2018-08-16 12:18 | NUR ---
ISOLATION PRECAUTIONS REMOVED
--- NOTE | 2018-08-16 12:40 | NUR ---
LUNCH RN: PT RESTING IN BED, ALL NEEDS MET AT THIS TIME. SITTER IN SAEED FOR CONTINUOUS MONITORING
--- NOTE | 2018-08-16 15:33 | NUR ---
PATIENT GIVEN DECAF COFFEE
--- NOTE | 2018-08-16 15:54 | NUR ---
PATIENT RESTING, NO DISTRESS
--- NOTE | 2018-08-16 16:35 | NUR ---
PATIENT GIVEN MEAL TRAY
[2018-08-16] MEDS ORDERED: IBUPROFEN 800 MG TABLET ONE (16:38)
[2018-08-16] MEDS: IBUPROFEN 800 MG TABLET PO PRN (16:39)
--- NOTE | 2018-08-16 17:18 | NUR ---
PATIETN RESTING. ATE MEAL TRAY WELL. NO DISTRESS.
--- NOTE | 2018-08-16 18:30 | NUR ---
PATIENT GIVEN DECAF COFFEE
--- NOTE | 2018-08-16 19:10 | NUR ---
REPORT RECEIVED FROM YEIMY KYLE, ASSUMING CARE AT THIS TIME
--- NOTE | 2018-08-16 20:09 | NUR ---
PT SLEEPING IN BED, RR EVEN AND UNLABORED, ALL NEEDS MET AT THIS TIME. SITTER IN SAEED FOR CONTINUOUS MONITORING
[2018-08-16] MEDS ORDERED: OLANZAPINE 10 MG TABLET ONE (20:36)
[2018-08-16] MEDS ORDERED: GABAPENTIN 300 MG CAPSULE ONE (20:36)
[2018-08-16] MEDS: OLANZAPINE 10 MG TABLET PO SCH (20:42)
[2018-08-16] MEDS: GABAPENTIN 300 MG CAPSULE PO SCH (20:42)
[2018-08-16] MEDS: NICOTINE 21 MG/24 HR PATCH.TD24 TD SCH (20:42)
--- NOTE | 2018-08-16 20:44 | NUR ---
MEDS ORDERED FROM PHARM, OTHER MEDS GIVEN. PT COOPERATIVE AND CALM WITH STAFF. DRINKING DECAFE AND EATING GRAM CRACKERS AT THIS TIME. SITTER IN SAEED FOR CONTINUOUS MONITORING. PT REPORTING LEFT CHEEK PAIN REQUESTING MOTRIN, PT INFORMED MUST WAIT 2 MORE HOURS UNTIL ABLE TO GIVE MED
[2018-08-16] MEDS: TRAZODONE 150MG TABLET PO SCH (20:50)
--- NOTE | 2018-08-16 22:48 | NUR ---
PT SLEEPING IN BED, RR EVEN AND UNLABORED. ALL NEEDS MET AT THIS TIME. FLUIDS AT BEDSIDE. SITTER IN SAEED FOR CONTINUOUS MONITORING
--- NOTE | 2018-08-16 23:05 | NUR ---
RECEIVED REPORT FROM ELOISA MACKAY RN TO ASSUME CARE OF PT.
--- NOTE | 2018-08-16 23:42 | NUR ---
PT. RESTING ON HOSPITAL BED WITH EYES CLOSED. EVEN, NON-LABORED RESPIRATIONS VISIBLE. ROOM SECURED. SITTER IN SAEED.
--- NOTE | 2018-08-17 00:40 | NUR ---
BREAK RN: PT SLEEPING. EVEN RISE AND FALL OF CHEST OBSERVED. SITTER IN VIEW OF PT
--- NOTE | 2018-08-17 01:47 | NUR ---
PT. RESTING ON HOSPITAL BED WITH EYES CLOSED. NAND. EVEN, NON-LABORED RESPIRATIONS VISIBLE. SAFETY MEASURES OBSERVED.
--- NOTE | 2018-08-17 02:43 | NUR ---
PT. CONTINUES RESTING ON HOSPITAL BED WITH EYES CLOSED. NADN. RESP VISIBLE AND NON-LABORED. ROOM REMAINS SECURED. SITTER IN SAEED.
--- NOTE | 2018-08-17 03:58 | NUR ---
PT. REMAINS ON HOSPITAL BED IN SUPINE POSITION WITH EYES CLOSED. NADN. EVEN CHEST RISE/FALL VISIBLE. ROOM SECURED. SITTER IN SAEED.
--- NOTE | 2018-08-17 04:50 | NUR ---
PT. REMAINS ON HOSPITAL BED IN SUPINE POSITION WITH EYES CLOSED. NADN. EVEN CHEST RISE/FALL VISIBLE. ROOM SECURED. SITTER IN SAEED.
--- NOTE | 2018-08-17 05:50 | NUR ---
PT. REQUESTING COFFEE; PROVIDED TO PT. BEDDING CHANGED.
--- NOTE | 2018-08-17 07:06 | NUR ---
REPORT TO SAROJ SHANKS TO ASSUME PT. CARE. NADN. DENIES NEEDS.
--- NOTE | 2018-08-17 07:39 | NUR ---
LATE NOTE ENTRY FOR 704: Recieved bedside report from SAROJ Kelly. All questions answered. NADN. No needs expressed. Pt sleeping on hospital bed supine. Pt has unlabored respirations with even chest rise and fall. Sitter near doorway in direct line of sight for observation.
[2018-08-17] MEDS ORDERED: AMOXICILLIN/CLAV 875-125MG TABLET ONE ×2 (07:42→21:38)
[2018-08-17] MEDS ORDERED: LISINOPRIL 10 MG TABLET ONE ×2 (07:43→21:39)
[2018-08-17] MEDS ORDERED: SERTRALINE 50MG TABLET ONE (07:43)
[2018-08-17] MEDS ORDERED: GABAPENTIN 300 MG CAPSULE ONE ×3 (07:43→21:39)
[2018-08-17] MEDS: SERTRALINE 50MG TABLET PO SCH (08:22)
[2018-08-17] MEDS: LISINOPRIL 10 MG TABLET PO SCH ×2 (08:22→21:50)
[2018-08-17] MEDS: PRAZOSIN 1 MG CAPSULE PO SCH (08:23)
[2018-08-17] MEDS: GABAPENTIN 300 MG CAPSULE PO SCH ×3 (08:23→21:50)
[2018-08-17] MEDS: AMOXICILLIN/CLAV 875-125MG TABLET PO SCH ×2 (08:23→21:50)
--- NOTE | 2018-08-17 08:41 | NUR ---
Provided pt breakfast tray. Pt appreciative and sits up at bedside to eat. Provided pt decaf coffee per request. Emptied pt's urinal of clear yellow urine. Provided pt medication per EMAR. Pt took medication per EMAR. Pt reqeusting "ibuprofen or Motrin" for left leg pain and right flank pain. NADN. No other needs expressed at this time. Sitter near doorway in direct line of sight for observation.
--- NOTE | 2018-08-17 08:44 | NUR ---
Pt denies SI or HI at this time.
--- NOTE | 2018-08-17 09:09 | NUR ---
Pt requesting more coffee. Provided pt with decaf cup of coffee.
--- NOTE | 2018-08-17 11:11 | NUR ---
LATE NOTE ENTRY FOR 1000: Pt requesting coffee. Decaf coffee provided. NADN. No other needs expressed. Sitter near doorway in direct line of sight for observation.
--- NOTE | 2018-08-17 11:12 | NUR ---
Pt resting on hospital bed sitting upright. Pt requesting coffee. Decaf coffee provided. NADN. No other needs requested. Lunch tray ordered. Sitter near doorway in direct line of sight for observation.
[2018-08-17] MEDS ORDERED: IBUPROFEN 800 MG TABLET ONE ×2 (12:05→21:52)
--- NOTE | 2018-08-17 12:07 | NUR ---
Provided bedside report to SAROJ Gonsalves. All questions answered. SAROJ Gonsalves to assume care of pt's at this time.
[2018-08-17] MEDS: IBUPROFEN 800 MG TABLET PO PRN ×2 (12:09→21:55)
--- NOTE | 2018-08-17 12:11 | NUR ---
REPORT FROM DIMITRIS KYLE, JANIA GIVEN TO PT PER REQUEST AND ORDER. PT COOPERATIVE WITH CARE, SITTER AT DOORWAY.
--- NOTE | 2018-08-17 13:15 | NUR ---
PT WATCHING TV, NO COMPLAINTS OR REQUESTS AT THIS TIME. SITTER AT DOORWAY.
--- NOTE | 2018-08-17 14:30 | NUR ---
PT WATCHING TV, NAD. SITTER AT DOORWAY.
--- NOTE | 2018-08-17 16:19 | NUR ---
MEDS GIVEN PER ORDER. PT ASKING WHY HE NEEDS TO STAY, "SEEMS ILLEGAL". PT INFORMED OF LEGAL HOLD AND POC. PT VERBALIZES UNDERSTANDING OF POC. SITTER AT DOORWAY.
--- NOTE | 2018-08-17 17:28 | NUR ---
DECAF COFFEE PROVIDED PER PT REQUEST FOR COFFEE. PT CONTINUES TO ASK WHEN HE CAN BE DISCHARGED. PT INFORMED AGAIN OF POC AND LEGAL HOLD. SITTER AT DOORWAY. MEAL TRAY ORDERED.
--- NOTE | 2018-08-17 18:12 | NUR ---
THROUGHPUT RN: Spoke with Claire, saw boss at [facility]. Per Claire, patient is pending admission at this time.
--- NOTE | 2018-08-17 18:14 | NUR ---
MEAL TRAY DELIVERED. PT STILL WATCHING TV, SITTER AT DOORWAY
--- NOTE | 2018-08-17 20:38 | NUR ---
PT GIVEN YAMINI CRACKERS AND SPRITE (DIET) PER REQUEST. SITTER AT DOORWAY. PT WATCHING TV.
[2018-08-17] MEDS ORDERED: TRAZODONE 50MG TABLET ONE (21:39)
[2018-08-17] MEDS ORDERED: OLANZAPINE 10 MG TABLET ONE (21:39)
[2018-08-17] MEDS: OLANZAPINE 10 MG TABLET PO SCH (21:50)
[2018-08-17] MEDS: TRAZODONE 150MG TABLET PO SCH (21:50)
[2018-08-17] MEDS: NICOTINE 21 MG/24 HR PATCH.TD24 TD SCH (21:53)
--- NOTE | 2018-08-17 21:53 | NUR ---
PT GIVEN 2100 MEDS PER ORDER EXCEPT PT REFUSING NICOTINE PATCH STATING HE DOESN'T NEED IT AND THAT PREVIOUS PATCH FELL OFF. PT ALSO REQUESTING IBUPROFEN FOR GENERALIZED PAIN WHICH WAS PROVIDED PER ORDER. BANDAID REPLACED TO LLE WOUND. SITTER AT DOORWAY, LIGHTS OFF.
--- NOTE | 2018-08-17 23:05 | NUR ---
DEVON DAVE. SITTER AT DOORWAY.
--- NOTE | 2018-08-17 23:59 | NUR ---
REPORT TO BOO KYLE, TRANSFER OF CARE AT THIS TIME.
--- NOTE | 2018-08-18 00:41 | NUR ---
PT RESTING CALMLY IN BED WITH EYES CLOSED. NO STATED NEEDS AT THIS TIME. SITTER AT DOOR FOR OBS.
--- NOTE | 2018-08-18 01:29 | NUR ---
PT RESTING CALMLY IN BED WITH EYES CLOSED, RESP EVEN AND NON LABORED NO STATED NEEDS AT THIS TIME. SITTER AT DOOR FOR OBS.
--- NOTE | 2018-08-18 02:22 | NUR ---
LONGWALL FOREMAN: SPOKE WITH KYLEIGH FROM WHOM STATES PT HAD PREVIOUSLY BEEN DECLINED DUE TO HIS HX OF MRSA HOWEVER NOW THAT THIS ISSUE HAS BEEN FOUND TO BE INCORRECT THEY WILL HAVE DAYSHIFT EVALUATE PT FOR POSSIBLE ADMISSION.
--- NOTE | 2018-08-18 02:24 | NUR ---
pt resting calmly in bed. no stated needs at this time. sitter at door for obs.
--- NOTE | 2018-08-18 03:08 | NUR ---
PT RESTING CALMLY IN BED WITH EYES CLOSED. NO STATED NEEDS AT THIS TIME. SITTER AT DOOR FOR FREQUENT OBS.
--- NOTE | 2018-08-18 04:19 | NUR ---
PT RESTING CALMLY IN BED WITH EYES CLOSED. PT IS MOVING INDEPENDANTLY IN BED. NO STATED NEEDS AT THIS TIME. SITTER AT DOOR FOR FREQUENT OBS.
--- NOTE | 2018-08-18 05:44 | NUR ---
PT CONTINUES TO REST CALMLY IN BED. NO STATED NEEDS. SITTER AT DOOR FOR OBS FREQUENTLY. BREAKFAST HAS BEEN ORDERED FOR PT.
--- NOTE | 2018-08-18 06:55 | NUR ---
REPORT TO MOODY KYLE.
--- NOTE | 2018-08-18 07:10 | NUR ---
REPORT FROM SAROJ HADDAD. CARE ASSUMED. PT RESTING IN ROOM, SITTER IN HALLWAY. NO NEEDS CURRENTLY.
--- NOTE | 2018-08-18 07:37 | NUR ---
RN AT BEDSIDE FOR MORNING VITALS/ASSESSMENT. PT STATES 'I NEVER HAD SI/HI IT WAS A MISCOMMUNICATION.' PT COOPERATIVE. SITTER REMAINS IN HALLWAY. WILL MONITOR CLOSELY
--- NOTE | 2018-08-18 08:52 | NUR ---
VOIDING PER URINAL. RESTING COMFORTABLY. SITTER REMAINS IN HALLWAY.
[2018-08-18] MEDS: LISINOPRIL 10 MG TABLET PO SCH ×2 (09:00→22:25)
[2018-08-18] MEDS: SERTRALINE 50MG TABLET PO SCH (09:00)
[2018-08-18] MEDS: PRAZOSIN 1 MG CAPSULE PO SCH (09:00)
[2018-08-18] MEDS: AMOXICILLIN/CLAV 875-125MG TABLET PO SCH ×2 (09:00→22:24)
[2018-08-18] MEDS: GABAPENTIN 300 MG CAPSULE PO SCH ×3 (09:00→22:24)
--- NOTE | 2018-08-18 10:10 | NUR ---
REMAINS RESTING IN ROOM. NO NEEDS AT THIS TIME. SITTER IN HALLWAY.
--- NOTE | 2018-08-18 11:30 | NUR ---
PT RESTING COMFORTABLY IN BED. NO NEEDS AT THIS TIME. SITTER IN HALLWAY.
--- NOTE | 2018-08-18 12:22 | NUR ---
PT RESTING COMFORTABLY IN BED. NO NEEDS AT THIS TIME. SITTER IN HALLWAY.
--- NOTE | 2018-08-18 13:53 | NUR ---
RESTING COMFORTABLY IN ROOM. LUNCH TRAY TO PT. SITTER REMAINS IN HALLWAY.
--- NOTE | 2018-08-18 15:00 | NUR ---
RESTING IN ROOM. WATCHING TV. SITTER IN HALLWAY.
[2018-08-18] MEDS ORDERED: LISINOPRIL 10 MG TABLET ONE ×2 (16:05→21:23)
[2018-08-18] MEDS ORDERED: AMOXICILLIN/CLAV 875-125MG TABLET ONE ×2 (16:05→21:23)
[2018-08-18] MEDS ORDERED: GABAPENTIN 300 MG CAPSULE ONE ×2 (16:06→21:24)
[2018-08-18] MEDS ORDERED: SERTRALINE 50MG TABLET ONE (16:06)
--- NOTE | 2018-08-18 16:10 | NUR ---
RESTING COMFORTABLY. COFFEE TO PT PER REQUEST. SITTER REMAINS IN HALLWAY.
[2018-08-18] MEDS ORDERED: IBUPROFEN 800 MG TABLET ONE ×2 (16:11→22:30)
--- NOTE | 2018-08-18 17:10 | NUR ---
RESTING QUIETLY IN ROOM WATCHING TV. SITTER IN HALLWAY.
--- NOTE | 2018-08-18 18:20 | NUR ---
RESTING IN ROOM. DINNER TRAY ORDERED. SITTER IN HALLWAY.
--- NOTE | 2018-08-18 18:56 | NUR ---
REPORT TO SAROJ HADDAD.
--- NOTE | 2018-08-18 19:23 | NUR ---
pt eating dinner. pt able to position himself in bed to eat. no stated requests at this time. will continue to monitor.
--- NOTE | 2018-08-18 20:14 | NUR ---
PT RESTING CALMLY IN BED. PT REQUESTING MORE FOOD. WILL ACCOMMODATE WITH AVAILABLE CONSUMABLES FROM [facility]. SITTER AT DOOR. WILL CONTINUE TO MONITOR.
[2018-08-18] MEDS ORDERED: OLANZAPINE 10 MG TABLET ONE (21:24)
--- NOTE | 2018-08-18 21:25 | NUR ---
PT RESTING CALMLY IN BED. WILL CONTINUE TO MONITOR. SITTER AT DOOR.
[2018-08-18] MEDS: TRAZODONE 150MG TABLET PO SCH (22:24)
[2018-08-18] MEDS: OLANZAPINE 10 MG TABLET PO SCH (22:25)
[2018-08-18] MEDS: IBUPROFEN 800 MG TABLET PO PRN (22:32)
--- NOTE | 2018-08-18 22:49 | NUR ---
PT GIVEN NIGHT TIME MEDS. PT REQUESTING IBO FOR FLORIAN, PT ALSO MEDICATED WITH THIS WELL. PT HAS LOW GRADE FEVER OF 99.3, SEE CHARTED. PT GIVEN CRACKERS AND JUICE PER REQUEST. VITALS DONE.
--- NOTE | 2018-08-18 23:02 | NUR ---
PT ROOM STRAIGHTENED UP. URINAL EMPTIED. OLD FOOD TRAYS REMOVED. PT GIVEN NEW BLANKETS. SITTER AT DOOR FOR OBS. WILL CONTINUE TO MONITOR.
--- NOTE | 2018-08-19 00:10 | NUR ---
TASK RN: PT SLEEPING IN BED. SITTER REMAINS AT BEDSIDE. ROOM REMAINS SECURE.
--- NOTE | 2018-08-19 01:10 | NUR ---
PT RESTING CALMLY IN BED WITH EYES CLOSED. SITTER AT DOOR WILL CONTINUE TO MONIOR.
--- NOTE | 2018-08-19 02:25 | NUR ---
PT UP TO BATHROOM WITH WHEELCHAIR ASSIST. PT PLACED BACK IN BED. PT ABLE TO ASSIST WITH TRANSFERS. SITTER AT DOOR. WILL CONTINUE TO MONITOR.
--- NOTE | 2018-08-19 03:10 | NUR ---
pt resting calmly in bed with eyes clsoed. pt resp even and non labored. sitter at door.
--- NOTE | 2018-08-19 04:20 | NUR ---
pt resting calmly in bed with eyes clsoed. pt resp even and non labored. sitter at door.
[2018-08-19] MEDS: NICOTINE 21 MG/24 HR PATCH.TD24 TD SCH ×2 (04:34→08:59)
--- NOTE | 2018-08-19 05:10 | NUR ---
REPORT GIVEN TO AMOR KYLE. PT RESTING CALMLY IN BED WITH EYES CLOSED. SITTER AT DOOR.
--- NOTE | 2018-08-19 05:45 | NUR ---
PT ASLEEP IN [facility] AT THIS TIME; NADN. ASTORGA HAS SITTER OUTSIDE OF ROOM FOR DIRECT OBSERVATION AT THIS TIME.
--- NOTE | 2018-08-19 06:34 | NUR ---
PT ASLEEP IN [facility] AT THIS TIME; SITTER OUTSIDE OF BEDROOM FOR DIRECT OBSERVATION OF PT.
--- NOTE | 2018-08-19 07:19 | NUR ---
RECEIVED BEDSIDE REPORT AND CARE FROM AMOR KYLE. CARE ASSUMED. PT RESTING IN POSITION OF COMFORT ON HOSPITAL BED. FALL PRECAUTIONS IN PLACE. DENIES ANY PAIN AND NEED TO USE RESTROOM. VITAL SIGNS STABLE. ASSESSMENT COMPLETED. 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 SAFE AND SECURE ENVIRONMENT PROVIDED, GARAGE DOORS DOWN. IN MONITORED CAMERA ROOM WITH SITTER AT DOOR WAY. A&OX4. PT CALM AND COOPERATIVE AT THIS TIME. DIET TRAY ORDERED, PT PROVIDED COFFEE PER REQUEST, TOLERATING PO WELL. FALL PRECAUTIONS IN PLACE. ALL BELONINGS REMAIN LOCKED IN CABINET FOR SAFETY. PT IN GOWN AND NON-SKID SOCKS FOR SAFETY. CONTINUE AWAITING COMMUNITY PLACEMENT FOR PT. PT OFFERED SHOWER, BED LINEN CHANGE, AND NEW GOWN/NON-SKID SOCK, PT REFUSED AT THIS TIME, "NO THANKS I'M FINE AND COMFORTABLE."
--- NOTE | 2018-08-19 07:58 | NUR ---
PT PROVIDED BREAKFAST MEAL TRAY, EATING WITHOUT ANY DIFFICULTY. TOLERATING PO WELL. RESTING IN POSITION OF COMFORT. SITTER AT DOOR FOR CONTINUOUS SAFETY OBSERVATION.
--- NOTE | 2018-08-19 08:24 | NUR ---
PT RESTING LEFT LATERAL POSITION WITH EYES CLOSED, RESPIRATIONS REGULAR, EVEN, UNLABORED, EQUAL CHEST RISE. NAD NOTED. SITTER AT DOOR FOR CONTINUOUS SAFETY OBSERVATION. FALL PRECAUTIONS IN PLACE.
[2018-08-19] MEDS: AMOXICILLIN/CLAV 875-125MG TABLET PO SCH ×2 (08:58→21:14)
[2018-08-19] MEDS: GABAPENTIN 300 MG CAPSULE PO SCH ×3 (08:58→21:15)
[2018-08-19] MEDS: PRAZOSIN 1 MG CAPSULE PO SCH (08:58)
[2018-08-19] MEDS: LISINOPRIL 10 MG TABLET PO SCH ×2 (08:58→21:00)
[2018-08-19] MEDS: SERTRALINE 50MG TABLET PO SCH (09:01)
[2018-08-19] MEDS ORDERED: IBUPROFEN 800 MG TABLET ONE ×2 (09:03→19:10)
[2018-08-19] MEDS: IBUPROFEN 800 MG TABLET PO PRN ×2 (09:04→19:11)
--- NOTE | 2018-08-19 09:05 | NUR ---
DR. Solo SILVER AT BEDSIDE FOR EVALUATION. DISCUSSED PT VITALS, BP AND HEART RATE WITH MD AND SCHEDULED BP MEDICATIONS, MD AWARE, ALL SCHEDULED MEDICATION ADMIN PER DR. SILVER. PT REQUESTING MOTRIN FOR 4/10 FLORIAN PAIN. MEDICATED PER DR. SILVER AT BEDSIDE. VSS. SITTER AT DOOR FOR CONTINUOUS SAFETY OBSERVATION. FALL PRECAUTIONS IN PLACE. DENIES NEED TO USE RESTROOM. ALL NEEDS MET AND ADDRESSED, ADDITIONAL REFRESHMENTS PROVIDED.
--- NOTE | 2018-08-19 10:15 | NUR ---
PT REPORTS FLORIAN PAIN IMPROVED, "I THINK IT'S GONE, BETTER." RATES PAIN 0/10. RESTING COMFORTABLY. SITTER AT DOOR FOR CONT SAFETY OBSERVATION. WILL CONTINUE TO MONITOR.
--- NOTE | 2018-08-19 10:49 | NUR ---
PT SLEEPING, RESP REGULAR AND UNLABORED, EVEN CHEST RISE. SITTER AT DOOR FOR CONTINUOUS SAFETY OBSERVATION.
--- NOTE | 2018-08-19 11:32 | NUR ---
PT CONTINUES SLEEPING AND RESTING WITH EYES CLOSED, REPOSITIONS SELF NEEDED FOR COMFORT. RESP REGULAR, UNLABORED, EVEN CHEST RISE. FALL PRECAUTIONS IN PLACE. SITTER AT DOOR FOR CONTINUOUS SAFETY OBSERVATION.
--- NOTE | 2018-08-19 11:53 | NUR ---
PT PROVIDED URINAL PER REQUEST, 500ML VOIDED. DENIES ANY PAIN OR DIFFICULTY URINATING. REFUSED OFFER TO USE RESTROOM "I'D LIKE URINAL." RESTING IN POSITION OF COMFORT. SITTER AT DOOR FOR CONT SAFETY OBS. LUNCH TRAY ORDERED PER PT REQUEST. PROVIDED REFRESHMENTS, TOLERATING PO WELL.
--- NOTE | 2018-08-19 12:17 | NUR ---
PT PROVIDED MEAL TRAY, EATING WITHOUT ANY DIFFICULTY. PROVIDED COFFEE PER REQUEST, TOLERATING PO WELL. SITTER AT DOOR FOR CONTINUOUS SAFETY OBSERVATION. DENIES ANY PAIN AND NEED TO USE RESTROOM.
--- NOTE | 2018-08-19 13:17 | NUR ---
PT RESTING IN POSITION OF COMFORT. DENIES NEED TO USE RESTROOM. ATE ENTIRE MEAL AND SNACKS, REFRESHMENTS PROVIDED. SITTER AT DOOR FOR CONTINUOUS SAFETY OBSERVATION.
--- NOTE | 2018-08-19 13:23 | NUR ---
REPORT AND CARE TO [facility]T KYLE AT THIS TIME.
--- NOTE | 2018-08-19 13:30 | NUR ---
pt resting comfortably in [facility], no s/s of distress. sitter monitoring from [facility] for safety. reports from sabina cole at this time
--- NOTE | 2018-08-19 14:26 | NUR ---
pt escorted to bathroom with standby assist. pt received coffee per request. denies further needs at this time Addendum: 08/19/18 at 1506 by MARYBETH pt escorted to bathroom via wheelchair with standby assist transfer. pt received coffee per request. denies further needs at this time
--- NOTE | 2018-08-19 15:19 | NUR ---
pt taking a shower, sitter monitoring for safety
--- NOTE | 2018-08-19 16:30 | NUR ---
pt ate approx 100% of lunch, provided with decaf coffee per request. denies further needs at this time
[2018-08-19] MEDS ORDERED: GABAPENTIN 300 MG CAPSULE ONE ×2 (17:54→21:10)
--- NOTE | 2018-08-19 17:59 | NUR ---
pt medicated per jun. provided with water. denies further needs at this time
--- NOTE | 2018-08-19 18:57 | NUR ---
REPORT RECEIVED FROM KT KYLE.
--- NOTE | 2018-08-19 19:13 | NUR ---
PT MEDICATED PER EMAR FOR FLORIAN. PT TOLERATED WELL. SITTER MONITORING FROM [facility] FOR SAFETY. ROOM REMAINS SECURE.
[2018-08-19] MEDS: TRAZODONE 150MG TABLET PO SCH (21:00)
[2018-08-19] MEDS ORDERED: OLANZAPINE 10 MG TABLET ONE (21:10)
[2018-08-19] MEDS ORDERED: LISINOPRIL 5 MG TABLET ONE (21:10)
[2018-08-19] MEDS ORDERED: TRAZODONE 50MG TABLET ONE (21:10)
[2018-08-19] MEDS ORDERED: AMOXICILLIN/CLAV 875-125MG TABLET ONE (21:13)
[2018-08-19] MEDS: OLANZAPINE 10 MG TABLET PO SCH (21:14)
--- NOTE | 2018-08-19 21:19 | NUR ---
PT MEDICATED PER EMAR. PT TOLERATED WELL. PT'S AOX4. RESPS EVEN AND UNLABORED.
--- NOTE | 2018-08-19 21:46 | NUR ---
PT PROVIDED NEW URINAL. URINAL AT BEDSIDE.
--- NOTE | 2018-08-19 22:42 | NUR ---
PT PROVIDED SOME SNACKS AND DRINK AT THIS TIME.
--- NOTE | 2018-08-19 23:26 | NUR ---
PT SLEEPING IN HOSPITAL BED. RESPS EVEN AND UNLABORED. SITTER MONITORING FROM [facility]ALLWAY FOR SAFETY. ROOM REMAINS SECURE.
--- NOTE | 2018-08-20 00:15 | NUR ---
pt sleeping in hospital bed. resps even and unlabored. sitter monitoring from hallway for safety. room remains secure.
--- NOTE | 2018-08-20 01:30 | NUR ---
pt sleeping in hospital bed. resps even and unlabored. sitter monitoring from hallway for safety. room remains secure.
--- NOTE | 2018-08-20 02:53 | NUR ---
pt sleeping in hospital bed. resps even and unlabored. sitter monitoring from hallway for safety. room remains secure.
--- NOTE | 2018-08-20 04:32 | NUR ---
pt sleeping in hospital bed still. resps even and unlabored. sitter monitoring from hallway for safety. room remains secure.
--- NOTE | 2018-08-20 04:45 | NUR ---
diet tray ordered.
--- NOTE | 2018-08-20 05:48 | NUR ---
PT IS UP NOW. PT PROVIDED SOME COFFEE AT THIS TIME.
--- NOTE | 2018-08-20 05:55 | NUR ---
PT UP TO BATHROOM WITH WHEELCHAIR ASSIST. PT PLACED BACK IN BED. PT ABLE TO ASSIST WITH TRANSFERS. SITTER AT DOOR. WILL CONTINUE TO MONITOR.
--- NOTE | 2018-08-20 06:49 | NUR ---
REPORT GIVEN TO DIMITRIS KYLE.
--- NOTE | 2018-08-20 06:52 | NUR ---
Recieved bedside report from SAROJ Hopkins. All questions answered. Assuming care of pt. Pt asleep on hospital bed with even chest rise and fall. NADN. No needs expressed. SI precautions in place. ED RN near doorway in direct line of sight for observation.
--- NOTE | 2018-08-20 08:07 | NUR ---
Pt resting on hospital bed requesting breakfast. Pt notified verbally twice that breakfast has been ordered and will be brought to him when it arrives. Pt states understanding. NADN. No other needs expressed. Sitter near doorway in direct line of sight for observation.
--- NOTE | 2018-08-20 08:37 | NUR ---
LATE NOTE YAMILEY FOR 08: Pt resting on hospital bed. Provided pt breakfast tray. Pt appreciative. Provided pt decaf coffee. Pt appreciaitve. NADN. Sitter near bedside for direct observation. No needs expressed at this time.
[2018-08-20] MEDS ORDERED: LISINOPRIL 5 MG TABLET ONE (08:43)
[2018-08-20] MEDS ORDERED: AMOXICILLIN/CLAV 875-125MG TABLET ONE ×2 (08:43→20:26)
[2018-08-20] MEDS ORDERED: GABAPENTIN 300 MG CAPSULE ONE ×3 (08:43→20:26)
[2018-08-20] MEDS ORDERED: SERTRALINE 50MG TABLET ONE (08:43)
[2018-08-20] MEDS ORDERED: NICOTINE 21 MG/24 HR PATCH.TD24 ONE (08:43)
[2018-08-20] MEDS: SERTRALINE 50MG TABLET PO SCH (09:22)
[2018-08-20] MEDS: PRAZOSIN 1 MG CAPSULE PO SCH (09:22)
[2018-08-20] MEDS: GABAPENTIN 300 MG CAPSULE PO SCH ×3 (09:22→20:41)
[2018-08-20] MEDS: LISINOPRIL 10 MG TABLET PO SCH ×2 (09:22→20:43)
[2018-08-20] MEDS: AMOXICILLIN/CLAV 875-125MG TABLET PO SCH ×2 (09:22→20:41)
[2018-08-20] MEDS: NICOTINE 21 MG/24 HR PATCH.TD24 TD SCH (09:25)
--- NOTE | 2018-08-20 09:39 | NUR ---
Provided pt medication. Pt agitated stating, "Why am I in here?, I never had thoughts of hurting myself or anyone else. Can you call security and ask them to get these guns off of me, there are people outside pointing guns at me." Pt resting on hospital bed. Emptied pt urinal. Cleared breakfast tray. Pt ate 100% of breakfast tray. Pt requesting coffee.
--- NOTE | 2018-08-20 09:40 | NUR ---
Sittner near doorway in direct line of sight for observation.
--- NOTE | 2018-08-20 09:42 | NUR ---
Offered pt PRN medications. Pt declined. Pt not posing threat to self harm or to harm staff. Pt having auditory and visual hallucinations that, "people are pointing guns at me from outside." Sitter near doorway in direct line of sight for observation.
--- NOTE | 2018-08-20 11:28 | NUR ---
LATE NOTE ENTRY FOR 1030: Pt requesting wheelchair to use restroom for bowel movement. Pt assited to bathroom in wheelchair. Pt back to hospital bed. NADN. Pt requesting coffee. Decaf coffee provided. Sitter near doorway in direct line of sight for observation. No needs expressed at this time.
--- NOTE | 2018-08-20 11:29 | NUR ---
Sitter near doorway in direct line of sight for observation. NADN. Pt watching TV and drinking decaf coffee. No needs expressed at this time.
--- NOTE | 2018-08-20 13:24 | NUR ---
LATE NOTE ENTRY FOR 1230: Sitter near doorway in direct line of sight for observation. NADN. No needs expressed.
--- NOTE | 2018-08-20 13:25 | NUR ---
Sitter near doorway in direct line for observation. NADN. No needs expressed. SI precautions in place. Pt watching T.V. Pt has even chest rise and fall.
--- NOTE | 2018-08-20 14:54 | NUR ---
Pt watching TV in room sitting on hospital bed. Pt requesting to use restroom. Wheelchair brought to room to assist pt to bathroom. NADN. No other needs expressed at this time. Sitter near doorway in direct line of sight for observation.
--- NOTE | 2018-08-20 15:14 | NUR ---
Pt provided new linens by surgical scrub technician. When surgical scrub technician removing pt's old linens, surgical scrub technician found one capsule of pt's medication. Medication appears to be a Gabapentin. Gabapentin disposed of in Med room. Pt back to hospital bed with out complications. NADN. No other needs expressed. Sitter near doorway in direct line of sight for observation.
--- NOTE | 2018-08-20 15:56 | NUR ---
Pt resting on hospital bed watching T.VMehul NADN. No needs expressed. Sitter near doorway in direct line of sight for observation.
--- NOTE | 2018-08-20 17:28 | NUR ---
LATE NOTE ENTRY FOR 1630: Pt watching TV. NADN. Sitter near doorway in direct line of sight for observation. No needs requested.
--- NOTE | 2018-08-20 17:29 | NUR ---
Pt resting on hospital bed. NADN. Medications provided per EMAR. No needs requested at this time. Sitter near doorway in direct line of sight for observation.
--- NOTE | 2018-08-20 18:33 | NUR ---
Pt resting on hospital bed watching TV. NADN. No needs requested. Sitter near doorway in direct line of sight for observation.
--- NOTE | 2018-08-20 19:05 | NUR ---
Provided pt dinner tray. Pt appreciative. NADN. No other needs expressed. Sitter near doorway in direct line of sight for observation. Provided bedside report to SAROJ Marino. All questions answered. SAROJ Marino to assume care of pt.
--- NOTE | 2018-08-20 19:24 | NUR ---
pt sitting up in bed calmly watching tv, denies si/hi thought pt stated " i never did have thoughts". room secured, garage doors down, sitter at doorway for continous monitoring
[2018-08-20] MEDS ORDERED: LISINOPRIL 10 MG TABLET ONE (20:27)
[2018-08-20] MEDS ORDERED: OLANZAPINE 10 MG TABLET ONE (20:27)
--- NOTE | 2018-08-20 20:31 | NUR ---
pt resting calmly watching tv, nad, denies needs, sitter at doorway for continous monitoring
[2018-08-20] MEDS: OLANZAPINE 10 MG TABLET PO SCH (20:41)
[2018-08-20] MEDS: TRAZODONE 150MG TABLET PO SCH (20:42)
--- NOTE | 2018-08-20 21:29 | NUR ---
pt resting calmly, provided pt with coffee, denies further needs, sitter at doorway for continous monitoring
--- NOTE | 2018-08-20 22:04 | NUR ---
PT UP TO RR VIA W/C, TOLERATED TRANSFER WITHOUT DIFFICULTY. FULL LINEN CHANGE COMPLETED, URINAL EMPTIED, PT DENIES FURTHER NEEDS AT THIS TIME, SITTER REMAINS AT DOORWAY FOR CONTINOUS MONITORING
--- NOTE | 2018-08-20 23:02 | NUR ---
pt requesting coffee, provided pt with decaf coffee, denies further needs, sitter at doorway for continous monitoring
--- NOTE | 2018-08-21 00:58 | NUR ---
pt resting calmly watching tv, provided pt with sprite, denies further needs, sitter at doorway for continous monitoring
--- NOTE | 2018-08-21 01:04 | NUR ---
pt c/o headache and requesting motrin. discussed medication schedule with pt, pt stated he will wait until next scheduled dose
--- NOTE | 2018-08-21 02:54 | NUR ---
late entry 0210-pt resting calmly, provided pt with snack and drink per his request, si precautions maintained, sitter at doorway for continous monitoring
--- NOTE | 2018-08-21 03:13 | NUR ---
pt resting calmly, nad, denies needs, sitter at doorway for continous monitoring
[2018-08-21] MEDS ORDERED: IBUPROFEN 800 MG TABLET ONE (03:36)
[2018-08-21] MEDS: IBUPROFEN 800 MG TABLET PO PRN (03:38)
--- NOTE | 2018-08-21 03:38 | NUR ---
pt medicated for headache, see mar
--- NOTE | 2018-08-21 04:23 | NUR ---
pt resting in bed, nad, urinal emptied, denies further needs, sitter at doorway for continous monitoring
--- NOTE | 2018-08-21 05:09 | NUR ---
pt resting with eyes closed, nadn, equal chest rise/fall observed, sitter at doorway for continous monitroing
--- NOTE | 2018-08-21 05:48 | NUR ---
sitter assisted pt up to rr with w/c use
--- NOTE | 2018-08-21 06:10 | NUR ---
pt sitting on on side of bed, provided pt with decaf coffee, sitter at bedside for continous monitoring
--- NOTE | 2018-08-21 06:58 | NUR ---
report given to kelsey marinelli
--- NOTE | 2018-08-21 07:34 | NUR ---
BEDSIDE REPORT FROM TORRI RN. PATIENT SITTING UP ON EDGE OF HOSPITAL BED WATCHING TELEVISION/INTERACTING DENIES COMPLAINTS AT THIS TIME BREAKFAST ORDERED UPDATED ON ESTIMATED POC PATIENT A LEGAL HOLD ROOM SECURED W/ PSYCHIATRIC PRECAUTIONS SITTER AT DOORWAY FOR CONTINUOUS MONITORING
[2018-08-21] MEDS ORDERED: NICOTINE 21 MG/24 HR PATCH.TD24 ONE (08:40)
[2018-08-21] MEDS ORDERED: LISINOPRIL 10 MG TABLET ONE ×2 (08:40→20:44)
[2018-08-21] MEDS ORDERED: SERTRALINE 50MG TABLET ONE (08:40)
[2018-08-21] MEDS ORDERED: AMOXICILLIN/CLAV 875-125MG TABLET ONE (08:40)
[2018-08-21] MEDS ORDERED: GABAPENTIN 300 MG CAPSULE ONE ×3 (08:41→20:44)
--- NOTE | 2018-08-21 08:50 | NUR ---
PATIENT SITTING UP ON EDGE OF HOSPITAL BED WATCHING TELEVISION/INTERACTING W/ MINE ENGINEER DENIES COMPLAINTS AT THIS TIME BREAKFAST ORDERED UPDATED ON ESTIMATED POC PATIENT A LEGAL HOLD ROOM SECURED W/ PSYCHIATRIC PRECAUTIONS SITTER AT DOORWAY FOR CONTINUOUS MONITORING
[2018-08-21] MEDS: NICOTINE 21 MG/24 HR PATCH.TD24 TD SCH (09:51)
[2018-08-21] MEDS: GABAPENTIN 300 MG CAPSULE PO SCH ×3 (09:52→21:21)
[2018-08-21] MEDS: PRAZOSIN 1 MG CAPSULE PO SCH (09:52)
[2018-08-21] MEDS: AMOXICILLIN/CLAV 875-125MG TABLET PO SCH (09:52)
[2018-08-21] MEDS: SERTRALINE 50MG TABLET PO SCH (09:52)
[2018-08-21] MEDS: LISINOPRIL 10 MG TABLET PO SCH ×2 (09:53→21:21)
--- NOTE | 2018-08-21 09:58 | NUR ---
PATIENT SITTING UP ON EDGE OF HOSPITAL BED WATCHING TELEVISION/EATING BREAKFAST-ATE ALL OF BREAKFAST MEDICATED PER EMAR UPDATED ON ESTIMATED POC WOUND TO AMPUTATION SITE MINIMALLY REDDENED, SCABBED OVER. PATIENT REPORTS "IT LOOKS ALOT BETTER, AND IT FEELS LESS TENDER WELL." PATIENT A LEGAL HOLD ROOM SECURED W/ PSYCHIATRIC PRECAUTIONS SITTER AT DOORWAY FOR CONTINUOUS MONITORING
--- NOTE | 2018-08-21 10:58 | NUR ---
PATIENT WATCHING TELEVISION/DENIES COMPLAINTS PATIENT A LEGAL HOLD ROOM SECURED W/ PSYCHIATRIC PRECAUTIONS SITTER AT DOORWAY FOR CONTINUOUS MONITORING
--- NOTE | 2018-08-21 12:47 | NUR ---
PATIENT HELPED TRANSFER TO BATHROOM FOR BM-HAD FORMED BM. TRANSFERRED FROM BED TO WHEELCHAIR TO COMMODE AND BACK EASILLY AND SWIFTLY. NO COMPLAINTS EATING LUNCH ROOM REMAINS SECURED WITH PSYCH PRECAUTIONS SITTER WITH EYESIGHT REPORT TO JUAREZ KYLE
--- NOTE | 2018-08-21 13:10 | NUR ---
BREAK RN - PT RESTING ON [place]. ALL CONCNERNS ADRESSED. SITTER IN PLACE. ROOM SECURED.
--- NOTE | 2018-08-21 14:07 | NUR ---
ATE ALL OF LUNCH MACHINE OPERATOR SLITTER TECHNICIAN SPENT SOME TIME INTERACTING WITH PATIENT- PATIENT UNDERSTANDING OF PLAN/LIMITATIONS CAUSING DELAYS. DOES NOT APPEAR CONCERNED. ROOM REMAINS SECURED WITH PSYCH PRECAUTIONS SITTER WITH EYESIGHT
--- NOTE | 2018-08-21 15:43 | NUR ---
NO COMPLAINTS AT THIS TIME, RESTING COMFORTABLY ON HOSPITAL BED ROOM REMAINS SECURED WITH PSYCH PRECAUTIONS SITTER WITHIN EYESIGHT
--- NOTE | 2018-08-21 19:05 | NUR ---
PATIENT HELPED TO BATHROOM WHERE HE INDEPENDENTLY SHOWERED. RESTING COMFORTABLY ON HOSPITTAL BED ROOM REMAINS SECURED W/ PSYCH PRECAUTIONS 1:1 SITTER W/IN EYELINE REPORT TO ANTELMO KYLE
--- NOTE | 2018-08-21 20:00 | NUR ---
PT SLEEPING AT THIS TIME. SITTER AT BEDSIDE.
[2018-08-21] MEDS ORDERED: OLANZAPINE 10 MG TABLET ONE (20:44)
[2018-08-21] MEDS ORDERED: TRAZODONE 50MG TABLET ONE (20:44)
[2018-08-21] MEDS: TRAZODONE 150MG TABLET PO SCH (21:21)
[2018-08-21] MEDS: OLANZAPINE 10 MG TABLET PO SCH (21:21)
--- NOTE | 2018-08-21 21:29 | NUR ---
PT MEDICATED PER EMAR. SITTING UP EATING A SANDWICH. VSS. SITTER AT BEDSIDE.
--- NOTE | 2018-08-21 22:49 | NUR ---
PT SLEEPING. SITTER AT BEDSIDE.
--- NOTE | 2018-08-21 23:56 | NUR ---
PT REMAINS SLEEPING. SITTER AT BEDSIDE.
--- NOTE | 2018-08-22 00:43 | NUR ---
PT REMAINS SLEEPING WITH SITTER AT DOORWAY.
--- NOTE | 2018-08-22 02:29 | NUR ---
PT SLEEPING WITH SITTER AT BEDSIDE.
--- NOTE | 2018-08-22 04:29 | NUR ---
PT SLEEPING, ABLE TO REPOSITION SELF. SITTER AT BEDSIDE.
--- NOTE | 2018-08-22 05:55 | NUR ---
URINAL EMPTIED. PT AWAKE ASKING ABOUT BREAKFAST. VSS. SITTER AT BEDSIDE.
--- NOTE | 2018-08-22 06:58 | NUR ---
report received from Eliane. pt calmly resting on hospital bed, NAD with equal chest rise/fall, no needs at this time, pt remains in safe environment, sitter in view.
--- NOTE | 2018-08-22 06:58 | NUR ---
REPORT GIVEN TO HELEN KYLE.
--- NOTE | 2018-08-22 08:01 | NUR ---
pt continues to calmly rest on hospital bed, NAD with equal chest rise/fall, no needs at this time, pt remains in safe environment, sitter in view.
--- NOTE | 2018-08-22 08:46 | NUR ---
breakfast tray given
--- NOTE | 2018-08-22 09:00 | NUR ---
pt calmly resting on hospital bed, ate 100% of breakfast, responds approp to staff, NAD, comfort measures provided, pt remains in safe environment, sitter in view.
[2018-08-22] MEDS ORDERED: LISINOPRIL 10 MG TABLET ONE ×2 (09:04→19:30)
[2018-08-22] MEDS ORDERED: NICOTINE 21 MG/24 HR PATCH.TD24 ONE (09:04)
[2018-08-22] MEDS ORDERED: SERTRALINE 50MG TABLET ONE (09:04)
[2018-08-22] MEDS ORDERED: GABAPENTIN 300 MG CAPSULE ONE ×3 (09:05→19:30)
[2018-08-22] MEDS: NICOTINE 21 MG/24 HR PATCH.TD24 TD SCH (09:27)
[2018-08-22] MEDS: LISINOPRIL 10 MG TABLET PO SCH ×2 (09:28→20:30)
[2018-08-22] MEDS: GABAPENTIN 300 MG CAPSULE PO SCH ×3 (09:28→20:30)
[2018-08-22] MEDS: SERTRALINE 50MG TABLET PO SCH (09:28)
[2018-08-22] MEDS: PRAZOSIN 1 MG CAPSULE PO SCH (09:28)
--- NOTE | 2018-08-22 10:03 | NUR ---
pt continues to calmly rest on hospital bed, NAD with equal chest rise/fall, no needs at this time, pt remains in safe environment, sitter in view.
--- NOTE | 2018-08-22 11:04 | NUR ---
pt calmly resting on hospital bed, responds approp to staff, NAD, comfort measures provided, pt remains in safe environment, sitter in view.
--- NOTE | 2018-08-22 12:02 | NUR ---
pt continues to calmly rest on hospital bed, NAD with equal chest rise/fall, no needs at this time, pt remains in safe environment, sitter in view.
--- NOTE | 2018-08-22 12:26 | NUR ---
lunch tray given
--- NOTE | 2018-08-22 13:05 | NUR ---
pt calmly resting on hospital bed, responds approp to staff, NAD, comfort measures provided, pt remains in safe environment, sitter in view.
--- NOTE | 2018-08-22 14:01 | NUR ---
pt continues to calmly rest on hospital bed, NAD with equal chest rise/fall, no needs at this time, pt remains in safe environment, sitter in view.
--- NOTE | 2018-08-22 15:03 | NUR ---
pt calmly resting on hospital bed, responds approp to staff, NAD, comfort measures provided, pt remains in safe environment, sitter in view.
--- NOTE | 2018-08-22 15:41 | NUR ---
PT DINNER MEAL TRAY ORDERED, PT RESTING IN BED WITH EQUAL AND ULABORED RESPIRATIONS AND GOOD CAP REFILL. NADN. SITTER OUTSIDE ROOM FOR CONTINOUS MONTIORING.
--- NOTE | 2018-08-22 16:00 | NUR ---
pt continues to calmly rest on hospital bed, responds approp to staff, NAD, comfort measures provided, pt remains in safe environment, sitter in view.
--- NOTE | 2018-08-22 16:35 | NUR ---
dinner tray given
--- NOTE | 2018-08-22 17:05 | NUR ---
pt calmly resting on hospital bed, watching TV, responds approp to staff, NAD, comfort measures provided, pt remains in safe environment, sitter in view.
--- NOTE | 2018-08-22 18:06 | NUR ---
pt continues to calmly rest on hospital bed, responds approp to staff, NAD, comfort measures provided, pt remains in safe environment, sitter in view.
--- NOTE | 2018-08-22 18:56 | NUR ---
report given to Grant
[2018-08-22] MEDS ORDERED: IBUPROFEN 800 MG TABLET ONE (19:30)
[2018-08-22] MEDS ORDERED: OLANZAPINE 10 MG TABLET ONE (19:30)
--- NOTE | 2018-08-22 19:55 | NUR ---
vitals done, see charted. pt resting in bed. pt asking when he can leave. explained current plan of attempting to secure a bed at [facility]. pt talking to himself, stated if you can do anything with me, then just let me go. pt asked if having SI. pt stated he never did, he is just hearing voices. pt continued to talk to himself. pt medicatedfor dental pain with ordered ibu. will continue to monitor.
[2018-08-22] MEDS: TRAZODONE 150MG TABLET PO SCH (20:05)
[2018-08-22] MEDS: IBUPROFEN 800 MG TABLET PO PRN (20:30)
[2018-08-22] MEDS: OLANZAPINE 10 MG TABLET PO SCH (20:30)
--- NOTE | 2018-08-22 20:30 | NUR ---
PT MEDICATED WITH ORDERED MEDS. NO OTHER REQUESTS FROM PT AT THIS TIME. WILL CONTINUE TO MONITOR.
--- NOTE | 2018-08-22 21:14 | NUR ---
PT RESTING IN BED. NO STATED NEEDS AT THIS TIME. SITTER AT DOOR.
--- NOTE | 2018-08-22 22:13 | NUR ---
PT RESTING IN BED. SITTER AT DOOR. PT USINGURINALS TO VOID.
--- NOTE | 2018-08-22 23:24 | NUR ---
PT RESTING IN BED. SITTER AT DOOR. WILL CONTINUE TO MONITOR.
--- NOTE | 2018-08-23 00:55 | NUR ---
PT RESTING CALMLY IN BED. SITTER AT DOOR. NO STATED NEEDS BY PT.
--- NOTE | 2018-08-23 01:11 | NUR ---
PT RESTING IN BED WITH EYES CLSOED. SITTER WATCHING PT FREQUENTLY
--- NOTE | 2018-08-23 02:21 | NUR ---
PT RESTING IN BED WITH EYES CLOSED. NO STATED NEEDS AT THIS TIME. SITTER FREQUENTLY OBSERVING PT
--- NOTE | 2018-08-23 03:14 | NUR ---
RESP EVEN AND NON LAOBRED, pt resting in GURNEY CALMLY AND WITH EYES CLOSED. NO STATED NEEDS AT THIS TIME. SITTER ON WATCH OF PT FREQUENTLY
--- NOTE | 2018-08-23 04:07 | NUR ---
pt resting in GURNEY CALMLY AND WITH EYES CLOSED. NO STATED NEEDS AT THIS TIME. SITTER ON WATCH OF PT FREQUENTLY
--- NOTE | 2018-08-23 05:46 | NUR ---
PT RESTING CALMLY IN BED WITH EYES CLOSED. SITTER AT DOOR.
--- NOTE | 2018-08-23 06:31 | NUR ---
BREAKFAST ORDERED FOR PT. PT ERQUESTING 2 CUPS OF COFFEE WHICH PT WAS GIVEN DECAF. PT RESTING CAMLY IN BED. SITTER WATCHING FREQUENTLY
--- NOTE | 2018-08-23 07:04 | NUR ---
[facility] on [facility] bed, NAD with equal chest rise/fall, no needs at this time, pt remains in safe environment, sitter in view.
[2018-08-23] MEDS ORDERED: NICOTINE 21 MG/24 HR PATCH.TD24 ONE (07:22)
[2018-08-23] MEDS ORDERED: LISINOPRIL 10 MG TABLET ONE ×2 (07:22→21:00)
[2018-08-23] MEDS ORDERED: SERTRALINE 50MG TABLET ONE (07:23)
[2018-08-23] MEDS ORDERED: GABAPENTIN 300 MG CAPSULE ONE ×3 (07:23→21:01)
--- NOTE | 2018-08-23 08:00 | NUR ---
pt calmly sitting up on hospital bed awake , calm & cooperative, responds approp to staff, NAD, comfort measures provided, pt remains in safe environment, sitter in view.
[2018-08-23] MEDS: NICOTINE 21 MG/24 HR PATCH.TD24 TD SCH (08:27)
[2018-08-23] MEDS: LISINOPRIL 10 MG TABLET PO SCH ×2 (08:28→21:07)
[2018-08-23] MEDS: SERTRALINE 50MG TABLET PO SCH (08:28)
[2018-08-23] MEDS: PRAZOSIN 1 MG CAPSULE PO SCH (08:28)
[2018-08-23] MEDS: GABAPENTIN 300 MG CAPSULE PO SCH ×3 (08:30→21:07)
--- NOTE | 2018-08-23 09:05 | NUR ---
pt continus to calmly sit up on hospital bed awake, calm & cooperative, responds approp to staff, NAD, comfort measures provided, pt remains in safe environment, sitter in view.
--- NOTE | 2018-08-23 09:35 | NUR ---
pt showered & provided supplies for oral hygiene, gown & bed linen changed.
--- NOTE | 2018-08-23 10:01 | NUR ---
pt continues to calmly sit up on hospital bed awake, calm & cooperative, responds approp to staff, NAD, comfort measures provided, pt remains in safe environment, sitter in view.
--- NOTE | 2018-08-23 11:03 | NUR ---
pt remains upright on hospital bed awake, calm & cooperative, responds approp to staff, NAD, comfort measures provided, pt remains in safe environment, sitter in view.
--- NOTE | 2018-08-23 12:04 | NUR ---
pt resting on hospital bed with eyes closed, responds approp to staff, NAD, comfort measures provided, pt remains in safe environment, sitter in view.
--- NOTE | 2018-08-23 12:33 | NUR ---
lunch tray given
--- NOTE | 2018-08-23 13:29 | NUR ---
Break RN: Pt resting quietly, sitter outside doorway.
--- NOTE | 2018-08-23 14:02 | NUR ---
pt remains upright on hospital bed awake, calm & cooperative, responds approp to staff, NAD, comfort measures provided, pt remains in safe environment, sitter in view.
--- NOTE | 2018-08-23 14:59 | NUR ---
pt resting on hospital bed with eyes closed, responds approp to staff, NAD, comfort measures provided, pt remains in safe environment, sitter in view.
--- NOTE | 2018-08-23 16:02 | NUR ---
pt continues resting on hospital bed with eyes closed, responds approp to staff, NAD, comfort measures provided, pt remains in safe environment, sitter in view.
--- NOTE | 2018-08-23 17:00 | NUR ---
pt remains upright on hospital bed awake, calm & cooperative, dinner tray given, responds approp to staff, NAD, comfort measures provided, pt remains in safe environment, sitter in view.
--- NOTE | 2018-08-23 17:49 | NUR ---
report given to Chapo KYLE
--- NOTE | 2018-08-23 17:59 | NUR ---
PT RESTING IN HOSPITAL BED, SITTER AT DOORWAY. AWAITING PLACEMENT FOR HOLD
--- NOTE | 2018-08-23 19:01 | NUR ---
REPORT RECIEVED FROM PAVEL KYLE. PT RESTING IN BED WATHCING TV.
--- NOTE | 2018-08-23 20:15 | NUR ---
PT COOPERATIVE RESTING IN BED WATCHING TV. SITTER AT BEDSIDE.
[2018-08-23] MEDS ORDERED: OLANZAPINE 10 MG TABLET ONE (21:00)
[2018-08-23] MEDS: OLANZAPINE 10 MG TABLET PO SCH (21:06)
[2018-08-23] MEDS: TRAZODONE 150MG TABLET PO SCH (21:19)
[2018-08-23] MEDS ORDERED: IBUPROFEN 800 MG TABLET ONE (21:21)
[2018-08-23] MEDS: IBUPROFEN 800 MG TABLET PO PRN (21:22)
--- NOTE | 2018-08-23 21:35 | NUR ---
PT MEDICATED PER EMAR. VSS. SITTING UP IN BED WATCHING TV. SITTER AT BEDSIDE.
--- NOTE | 2018-08-23 22:22 | NUR ---
PT SLEEPING. SITTER AT BEDSIDE.
--- NOTE | 2018-08-23 23:12 | NUR ---
PT AWAKE, EATING A SNACK. SITTER AT BEDSIDE.
--- NOTE | 2018-08-24 00:10 | NUR ---
PT SLEEPING, SITTER AT BEDSIDE.
--- NOTE | 2018-08-24 01:08 | NUR ---
PT SLEEPING. SITTER AT BEDSIDE.
--- NOTE | 2018-08-24 02:41 | NUR ---
PT REMAINS SLEEPING. PT ABLE TO TURN SELF IN BED. SITTER AT BEDSIDE.
--- NOTE | 2018-08-24 03:43 | NUR ---
PT SLEEPING. SITTER AT BEDSIDE.
--- NOTE | 2018-08-24 04:40 | NUR ---
PT SLEEPING IN BED WITH DOOR CLOSED. SITTER AT BEDSIDE.
--- NOTE | 2018-08-24 05:48 | NUR ---
PT REMAINS SLEEPING IN BED. ABLE TO REPOSITION SELF. SITTER AT BEDSIDE.
--- NOTE | 2018-08-24 06:16 | NUR ---
PT SLEEPING AND ABLE TO REPOSITION SELF IN BED. SITTER AT BEDSIDE.
--- NOTE | 2018-08-24 07:13 | NUR ---
PT. REPORT WAS RECEIVED. PT. IS RESTING WITHOUT CONCERNS. SAFETY MEASURES MAINTAINED. PT. HAS THE SITTER OUTSIDE OF THE ROOM.
--- NOTE | 2018-08-24 07:59 | NUR ---
PT. WAS GIVEN BREAKFAST. PT. REMAINS CALM AND COOPERATIVE.
[2018-08-24] MEDS: LISINOPRIL 10 MG TABLET PO SCH ×2 (09:26→20:48)
[2018-08-24] MEDS: PRAZOSIN 1 MG CAPSULE PO SCH (09:26)
[2018-08-24] MEDS: SERTRALINE 50MG TABLET PO SCH (09:26)
[2018-08-24] MEDS: GABAPENTIN 300 MG CAPSULE PO SCH ×3 (09:27→20:47)
[2018-08-24] MEDS: NICOTINE 21 MG/24 HR PATCH.TD24 TD SCH (09:29)
--- NOTE | 2018-08-24 10:07 | NUR ---
REPORT WAS GIVEN TO KRISTIN KYLE.
--- NOTE | 2018-08-24 10:10 | NUR ---
REPORT RECEIVED FROM ELLEN RANDALL PT RESTING IN BED IN NAD. EQUAL RISE AND FALL OF CHEST OBSERVED.
--- NOTE | 2018-08-24 10:15 | NUR ---
SPOKE WITH RISHI FROM [facility], NO BEDS AVAILABLE YET, CHARGE/ED DIR AWARE.
--- NOTE | 2018-08-24 10:54 | NUR ---
LUNCH MEAL TRAY ORDERED FOR PT.
--- NOTE | 2018-08-24 11:24 | NUR ---
LINENS CHANGED ON PT'S BED PER PT REQUEST. PT CALM AND COOPERATIVE.
--- NOTE | 2018-08-24 12:20 | NUR ---
PT GIVEN SUICIDE PRECAUTIONS MEAL TRAY. PT BEING OBSERVED BY SITTER.
--- NOTE | 2018-08-24 13:00 | NUR ---
PT ASSISTED TO RESTROOM VIA WHEELCHAIR. 3 P'S ADDRESSED.
--- NOTE | 2018-08-24 15:04 | NUR ---
PT SLEEPING IN NAD. VISIBLE RISE AND FALL OF CHEST OBSERVED. PT BEING WATCHED BY SITTER.
--- NOTE | 2018-08-24 15:43 | NUR ---
PT ASSISTED TO RESTROOM WITH WHEELCHAIR. PT GIVEN ANOTHER BLANKET. 3 P'S ADDRESSED.
--- NOTE | 2018-08-24 16:29 | NUR ---
PT WATCHING TV. VSS. WAITING FOR MEAL TRAY FOR DINNER.
--- NOTE | 2018-08-24 17:47 | NUR ---
PT ATE ALL OF DINNER, COFFEE GIVEN
[2018-08-24] MEDS ORDERED: IBUPROFEN 800 MG TABLET ONE (18:00)
[2018-08-24] MEDS: IBUPROFEN 800 MG TABLET PO PRN (18:01)
--- NOTE | 2018-08-24 18:33 | NUR ---
irene @ [facility] called to accept pt 08/25/18 @ [address] Caraballo.
--- NOTE | 2018-08-24 20:30 | NUR ---
Patient is resting comfortably in bed. Vital Signs within normal limits.
[2018-08-24] MEDS ORDERED: OLANZAPINE 10 MG TABLET ONE (20:50)
[2018-08-24] MEDS: OLANZAPINE 10 MG TABLET PO SCH (20:52)
--- NOTE | 2018-08-24 21:00 | NUR ---
PT MEDICATED PER MD ORDERS. PT CALM AND COOPERATIVE BEING OBSERVED BY SITTER.
[2018-08-24] MEDS: TRAZODONE 150MG TABLET PO SCH (21:22)
--- NOTE | 2018-08-24 22:02 | NUR ---
REPORT TO GHULAM Arteaga RN.
--- NOTE | 2018-08-25 00:13 | NUR ---
PT PROVIDED WITH COFFEE AND CEREAL REQUESTED. PT EATING AND WATCHING TV AT THIS TIME.
--- NOTE | 2018-08-25 02:10 | NUR ---
PT WATCHING TV WITH DOOR CLOSED, SITTER OUTSIDE DOOR WHERE PT IS VISIBLE. NO COMPLAINTS AT THIS TIME.
--- NOTE | 2018-08-25 03:49 | NUR ---
PT SLEEPING WITH TV ON AND DOOR CLOSED. SITTER AT DOORWAY AND PT VISIBLE THROUGH WINDOW.
--- NOTE | 2018-08-25 05:10 | NUR ---
Pt report from darrell cole. This rn to assume care of pt. No immediate needs from pt. Roller doors in place. Sitter in hallway.
--- NOTE | 2018-08-25 06:58 | NUR ---
Pt report to magda cole.
--- NOTE | 2018-08-25 07:00 | NUR ---
REPORT RECEIVED, CARE ASSUMED.
--- NOTE | 2018-08-25 07:30 | NUR ---
PT ASSISTED TO BR VIA W/C. STEADY ON ONE LEG. PT PROVIDED WITH COFFEE. PT AWARE MEAL TRAY REQUESTED FROM DIETARY. NO OTHER NEEDS EXPRESSED AT THIS TIME. PT COOPERATIVE WITH CARE AT THIS TIME. PT CONT IN SECURE ROOM WITH SITTER .
--- NOTE | 2018-08-25 07:38 | NUR ---
AM MEDS REQUESTED FROM PHARMACY.
[2018-08-25 08:00] VITALS: BP 122/74
--- NOTE | 2018-08-25 08:20 | NUR ---
REPORT CALLED SAMMY AT [facility], POC DISCUSSED. PT TO BE TRANSFERED APPROX 1030. PT AWARE.
[2018-08-25] MEDS ORDERED: NICOTINE 21 MG/24 HR PATCH.TD24 ONE (08:27)
[2018-08-25] MEDS ORDERED: SERTRALINE 50MG TABLET ONE (08:28)
[2018-08-25] MEDS ORDERED: GABAPENTIN 300 MG CAPSULE ONE (08:28)
[2018-08-25] MEDS ORDERED: LISINOPRIL 10 MG TABLET ONE (08:28)
[2018-08-25] MEDS: LISINOPRIL 10 MG TABLET PO SCH (08:31)
[2018-08-25] MEDS: PRAZOSIN 1 MG CAPSULE PO SCH (08:31)
[2018-08-25] MEDS: SERTRALINE 50MG TABLET PO SCH (08:31)
[2018-08-25] MEDS: GABAPENTIN 300 MG CAPSULE PO SCH (08:31)
[2018-08-25] MEDS: NICOTINE 21 MG/24 HR PATCH.TD24 TD SCH (08:32)
--- NOTE | 2018-08-25 10:08 | NUR ---
PT MOSTLY SLEEPING, USINIG URINAL PRN. CONT IN SECURE ROOM WITH SITTER AT DOOR. WAITING FOR TRANSPORT TO [facility].
--- NOTE | 2018-08-25 11:09 | NUR ---
REPORT TO EMS. PT LEFT W/C, WITH PROSTHETIC LEG, CANE AND MULTIPLE BAGS OF BELONGINGS.
== END 2018-08-25 11:15 | DRG 885 ==
LOC: ED 16:45 → UNDOADMIN 21:31 → EDIP 21:31 → ED 08-25 11:15
PROVIDERS: ADMIT Hospitalist; ATTEND Internal Medicine
DX: F20.0 Paranoid schizophrenia (principal); F17.203 Nicotine dependence unspecified, with withdrawal; F32.9 Major depressive disorder, single episode, unspecified; F29 Unspecified psychosis not due to a substance or known physiological condition; G43.909 Migraine, unspecified, not intractable, without status migrainosus; I10 Essential (primary) hypertension; N40.0 Benign prostatic hyperplasia without lower urinary tract symptoms; Z89.512 Acquired absence of left leg below knee; Z71.6 Tobacco abuse counseling; Z91.5 Personal history of self-harm; Z72.89 Other problems related to lifestyle
CPT/HCPCS: 36415; 80307; 80329; 81003; 85025; 99285; G0480

== ENCOUNTER 2019-04-20 02:14 | Inpatient (IN) | payer MEDICAID ==
[~2019-04-20] VITALS: Ht 172.7 cm; Wt 91.9 kg
[~2019-04-20 02:14] MED LIST changes: +ACAM333T7 PO; +DULO30CA2 PO; +GABA800T5 PO; +HYDR-826 PO; -HYDR25TA11 PO; +NICO-487 TD
[2019-04-20] MEDS ORDERED: ONDANSETRON ODT 4 MG PO PRN (02:30)
[2019-04-20] MEDS ORDERED: DOCUSATE 100 MG CAPSULE PO PRN (02:30)
[2019-04-20] MEDS ORDERED: POLYETHYLENE GLYCOL 17 GM PACKET PO PRN (02:30)
[2019-04-20] MEDS ORDERED: BISACODYL 10 MG SUPP PR PRN (02:30)
[2019-04-20 07:19] LABS: FREE T4 (FREE THYROXINE) 0.9 ng/dL (0.76-1.46)
[2019-04-20 07:40] VITALS: BP 114/65
[2019-04-20 08:19] LABS: MICROSCOPIC NOT IND
[2019-04-20 08:21] LABS: CULTURE INDICATED? NO
[2019-04-20] MEDS: GABAPENTIN 400 MG CAPSULE PO SCH ×3 (08:52→20:19)
[2019-04-20] MEDS: NICOTINE 21 MG/24 HR PATCH.TD24 TD SCH (08:52)
[2019-04-20 08:59] LABS: BASOPHILS # (AUTO) 0.08 x10^3/uL (0-0.1); BASOPHILS % (AUTO) 1 % (0-1); EOSINOPHILS # (AUTO) 0.17 x10^3/uL (0-0.4); EOSINOPHILS % (AUTO) 2 % (1-7); LYMPHOCYTES # (AUTO) 1.92 x10^3/uL (1-3.4); LYMPHOCYTES % (AUTO) 19 % (22-44); MD NO; MEAN CORPUSCULAR HEMOGLOBIN 29.6 pg (27.5-34.5); MEAN CORPUSCULAR VOLUME 89.6 fL (81-97); MEAN PLATELET VOLUME 7.6 fL (7.4-10.4); MONOCYTES # (AUTO) 0.89 x10^3/uL (0.2-0.8); MONOCYTES % (AUTO) 9 % (2-9); NEUTROPHILS # (AUTO) 7.23 x10^3/uL (1.8-6.8); NEUTROPHILS % (AUTO) 70 % (42-75); PLATELET COUNT 244 x10^3/uL (130-400); RED BLOOD COUNT 4.66 x10^6/uL (4.38-5.82); RED CELL DISTRIBUTION WIDTH 15.5 % (9.4-14.8)
[2019-04-20] MEDS ORDERED: LISINOPRIL 10 MG TABLET PO SCH (09:00)
[2019-04-20 09:19] LABS: ANION GAP 7 mmol/L (5-15); CALCIUM 8.6 mg/dL (8.5-10.1); CHLORIDE 106 mmol/L (98-107); CREATININE 1.72 mg/dL (0.7-1.3)
[2019-04-20 09:47] LABS: ALANINE AMINOTRANSFERASE 17 U/L (12-78); ALBUMIN 3.2 g/dL (3.4-5.0); CHOLESTEROL, TOTAL 209 mg/dL (140-239); TRIGLYCERIDES 293 mg/dL (50-200); VLDL CHOLESTEROL 59 mg/dL (0-25)
[2019-04-20 09:48] LABS: BILIRUBIN, DIRECT < 0.1 mg/dL (0.1-0.2)
[2019-04-20 09:57] LABS: ALKALINE PHOSPHATASE 130 U/L (45-117); BILIRUBIN,INDIRECT 0.1 mg/dL (0.0-2.0); BILIRUBIN,TOTAL 0.2 mg/dL (0.2-1.0); CHOL/HDL RATIO 7.2; HDL CHOL % 14 % (26-37); HDL CHOLESTEROL (DIRECT) 29 mg/dL (40-60); LDL CHOLESTEROL,CALCULATED 121 mg/dL (54-169); LDL/HDL RATIO 4.2 (0.5-3.0); TOTAL PROTEIN 6.9 g/dL (6.4-8.2)
[2019-04-20] MEDS: SODIUM CHLORIDE 0.9% 1,000 ML IV SCH ×2 (11:00→17:40)
[2019-04-20 14:28] LABS: CREATININE,URINE RANDOM 59.1 mg/dL
[2019-04-20 19:03] VITALS: BP 125/74
[2019-04-20] MEDS: ATORVASTATIN 20 MG TABLET PO SCH (20:19)
[2019-04-20] MEDS: TRAZODONE 50MG TABLET PO PRN (21:46)
[2019-04-21] MEDS: SODIUM CHLORIDE 0.9% 1,000 ML IV SCH ×2 (00:20→07:00)
[2019-04-21 05:47] LABS: ALBUMIN 3.3 g/dL (3.4-5.0); ANION GAP 8 mmol/L (5-15); CALCIUM 8.9 mg/dL (8.5-10.1); CHLORIDE 103 mmol/L (98-107)
[2019-04-21 05:52] LABS: ALANINE AMINOTRANSFERASE 16 U/L (12-78); ALKALINE PHOSPHATASE 128 U/L (45-117); BILIRUBIN,TOTAL 0.2 mg/dL (0.2-1.0); CREATININE 1.43 mg/dL (0.7-1.3); TOTAL PROTEIN 7.1 g/dL (6.4-8.2)
[2019-04-21 07:34] VITALS: BP 118/78
[2019-04-21] MEDS: GABAPENTIN 400 MG CAPSULE PO SCH ×3 (09:11→20:22)
[2019-04-21] MEDS: NICOTINE 21 MG/24 HR PATCH.TD24 TD SCH (09:11)
[2019-04-21] MEDS: OLANZAPINE 10 MG TABLET PO SCH (09:12)
[2019-04-21 19:36] VITALS: BP 105/70
[2019-04-21] MEDS: ATORVASTATIN 20 MG TABLET PO SCH (20:22)
[2019-04-21] MEDS: TRAZODONE 50MG TABLET PO PRN (20:26)
[2019-04-21] MEDS: ACETAMINOPHEN 325 MG TABLET PO PRN (20:26)
[2019-04-22 07:15] VITALS: BP 143/84
[2019-04-22 07:42] LABS: ANION GAP 3 mmol/L (5-15); CALCIUM 9.4 mg/dL (8.5-10.1); CHLORIDE 105 mmol/L (98-107)
[2019-04-22] MEDS: GABAPENTIN 400 MG CAPSULE PO SCH ×3 (08:20→20:14)
[2019-04-22] MEDS: OLANZAPINE 10 MG TABLET PO SCH (08:20)
[2019-04-22] MEDS: NICOTINE 21 MG/24 HR PATCH.TD24 TD SCH (08:20)
[2019-04-22] MEDS: CALCIUM CARBONATE 500 MG TAB.CHEW PO PRN (11:08)
[2019-04-22] MEDS: ACETAMINOPHEN 325 MG TABLET PO PRN ×2 (15:20→20:14)
[2019-04-22 19:51] VITALS: BP 144/84
[2019-04-22] MEDS: TRAZODONE 50MG TABLET PO PRN (20:14)
[2019-04-22] MEDS: ATORVASTATIN 20 MG TABLET PO SCH (20:20)
[2019-04-23] MEDS: ACETAMINOPHEN 325 MG TABLET PO PRN ×3 (00:55→20:25)
[2019-04-23] MEDS: TRAZODONE 50MG TABLET PO PRN (00:55)
[2019-04-23 07:38] VITALS: BP 132/85
[2019-04-23] MEDS: NICOTINE 21 MG/24 HR PATCH.TD24 TD SCH (08:39)
[2019-04-23] MEDS: GABAPENTIN 400 MG CAPSULE PO SCH ×3 (08:39→20:25)
[2019-04-23] MEDS: OLANZAPINE 10 MG TABLET PO SCH (08:40)
[2019-04-23 19:44] VITALS: BP 129/72
[2019-04-23] MEDS: ATORVASTATIN 20 MG TABLET PO SCH (20:25)
[2019-04-24 07:36] VITALS: BP 138/76
[2019-04-24] MEDS: OLANZAPINE 10 MG TABLET PO SCH (08:23)
[2019-04-24] MEDS: GABAPENTIN 400 MG CAPSULE PO SCH ×3 (08:24→21:05)
[2019-04-24] MEDS: NICOTINE 21 MG/24 HR PATCH.TD24 TD SCH (08:25)
[2019-04-24] MEDS: ACETAMINOPHEN 325 MG TABLET PO PRN (13:56)
[2019-04-24 19:26] VITALS: BP 138/84
[2019-04-24] MEDS: ATORVASTATIN 20 MG TABLET PO SCH (21:05)
[2019-04-24] MEDS: TRAZODONE 50MG TABLET PO PRN (21:08)
[2019-04-25] MEDS: CALCIUM CARBONATE 500 MG TAB.CHEW PO PRN (00:55)
[2019-04-25 07:50] VITALS: BP 142/82
[2019-04-25] MEDS: OLANZAPINE 10 MG TABLET PO SCH (08:44)
[2019-04-25] MEDS: NICOTINE 21 MG/24 HR PATCH.TD24 TD SCH (08:44)
[2019-04-25] MEDS: GABAPENTIN 400 MG CAPSULE PO SCH ×3 (08:44→20:24)
[2019-04-25] MEDS: ACETAMINOPHEN 325 MG TABLET PO PRN (13:41)
[2019-04-25 19:49] VITALS: BP 173/81
[2019-04-25] MEDS: TRAZODONE 50MG TABLET PO PRN (20:24)
[2019-04-25] MEDS: ATORVASTATIN 20 MG TABLET PO SCH (20:24)
[2019-04-26] MEDS: TRAZODONE 50MG TABLET PO PRN (00:06)
[2019-04-26] MEDS: CALCIUM CARBONATE 500 MG TAB.CHEW PO PRN (04:07)
[2019-04-26 07:38] VITALS: BP 148/84
[2019-04-26] MEDS: OLANZAPINE 10 MG TABLET PO SCH (08:04)
[2019-04-26] MEDS: GABAPENTIN 400 MG CAPSULE PO SCH ×3 (08:04→21:09)
[2019-04-26] MEDS: ACETAMINOPHEN 325 MG TABLET PO PRN ×3 (08:04→17:51)
[2019-04-26] MEDS: NICOTINE 21 MG/24 HR PATCH.TD24 TD SCH (08:05)
[2019-04-26] MEDS ORDERED: NICO-487 TD (16:22)
[2019-04-26] MEDS ORDERED: TRAZ50TA66 PO (16:22)
[2019-04-26] MEDS ORDERED: ATOR20TA37 PO (16:22)
[2019-04-26 20:00] VITALS: BP 221/101
[2019-04-26] MEDS ORDERED: LISINOPRIL 10 MG TABLET PO ONE ×2 (20:00→22:00)
[2019-04-26] MEDS: ATORVASTATIN 20 MG TABLET PO SCH (21:08)
[2019-04-26 22:00] VITALS: BP 205/93
[2019-04-26 22:30] VITALS: BP 191/76
[2019-04-26 23:00] VITALS: BP 209/95
[2019-04-26] MEDS ORDERED: hydrALAzine 20 MG/ML, 1ML IV ONE (23:30)
[2019-04-27] VITALS (7 sets, daily range): BP systolic 95–173; BP diastolic 62–92
[2019-04-27] MEDS ORDERED: hydrALAzine 20 MG/ML, 1ML IV ONE (01:00)
[2019-04-27] MEDS: ACETAMINOPHEN 325 MG TABLET PO PRN (08:14)
[2019-04-27] MEDS: NICOTINE 21 MG/24 HR PATCH.TD24 TD SCH (08:14)
[2019-04-27] MEDS: GABAPENTIN 400 MG CAPSULE PO SCH (08:14)
[2019-04-27] MEDS: OLANZAPINE 10 MG TABLET PO SCH (08:14)
== END 2019-04-27 15:21 | disposition home or self-care (01) | DRG 750 ==
LOC: 3E 03:51
PROVIDERS: ADMIT Psychiatry & Neurology Psychosomatic Medicine; ATTEND Psychiatry & Neurology Psychosomatic Medicine
DX: F25.1 Schizoaffective disorder, depressive type (principal); G62.9 Polyneuropathy, unspecified; Z89.612 Acquired absence of left leg above knee; E78.5 Hyperlipidemia, unspecified; F10.20 Alcohol dependence, uncomplicated; G47.00 Insomnia, unspecified; G89.29 Other chronic pain; I10 Essential (primary) hypertension; Z79.899 Other long term (current) drug therapy; Z81.8 Family history of other mental and behavioral disorders; Z91.5 Personal history of self-harm; F17.200 Nicotine dependence, unspecified, uncomplicated
CPT/HCPCS: 36415; 76770; 80048; 80053; 80061; 80076; 81003; 82570; 82607; 84300; 84439; 84443; 85025; 93005; 99285; J0360

== ENCOUNTER 2019-06-15 20:51 | Emergency (ER) | payer MEDICAID ==
[~2019-06-15] VITALS: Ht 172.7 cm; Wt 98.0 kg
[~2019-06-15 20:51] MED LIST changes: +ATOR20TA37 PO; -TRAZ-137 PO; +TRAZ-175 PO; +TRAZ50TA66 PO
[2019-06-15 21:54] LABS: BASOPHILS # (AUTO) 0.02 x10^3/uL (0-0.1); BASOPHILS % (AUTO) 0 % (0-1); EOSINOPHILS % (AUTO) 3 % (1-7); LYMPHOCYTES # (AUTO) 2.93 x10^3/uL (1-3.4); LYMPHOCYTES % (AUTO) 21 % (22-44); MD NO; MEAN CORPUSCULAR HEMOGLOBIN 30.2 pg (27.5-34.5); MEAN CORPUSCULAR HGB CONC 33.8 g/dL (33.2-36.2); MEAN CORPUSCULAR VOLUME 89.3 fL (81-97); MEAN PLATELET VOLUME 7.9 fL (7.4-10.4); MONOCYTES # (AUTO) 0.39 x10^3/uL (0.2-0.8); MONOCYTES % (AUTO) 3 % (2-9); NEUTROPHILS # (AUTO) 10.07 x10^3/uL (1.8-6.8); NEUTROPHILS % (AUTO) 73 % (42-75); PLATELET COUNT 238 x10^3/uL (130-400); RED BLOOD COUNT 4.65 x10^6/uL (4.38-5.82); RED CELL DISTRIBUTION WIDTH 15.7 % (9.4-14.8)
[2019-06-15 22:03] LABS: ALANINE AMINOTRANSFERASE 23 U/L (12-78); ALBUMIN 3.6 g/dL (3.4-5.0); ANION GAP 5 mmol/L (5-15); CALCIUM 8.9 mg/dL (8.5-10.1); CHLORIDE 112 mmol/L (98-107); CREATININE 1.71 mg/dL (0.7-1.3); SALICYLATE LEVEL 5.3 mg/dL (2.8-20.0)
[2019-06-15 22:14] VITALS: BP 152/75
[2019-06-15 22:22] LABS: ALKALINE PHOSPHATASE 144 U/L (45-117); BILIRUBIN,TOTAL 0.2 mg/dL (0.2-1.0); TOTAL PROTEIN 7.8 g/dL (6.4-8.2)
--- NOTE | 2019-06-15 23:01 | NUR ---
Patient BIB [facility] for SI/HI/ Patient states he has thought about walking into traffic. He did not attempt this tonight but he thought about it and states he wants help. He states he has previous attempts by cutting wrists. Patient is calm and cooperative. Belongings collected, bagged, and placed in locked cabinet (2 bags and a cane and a prosthetic leg). Sitter outside room. Patient is in NAD. Respirations even and unlabored.
[2019-06-15 23:45] LABS: AMPHETAMINE SCREEN, URINE Negative (Negative); BARBITURATE SCREEN, URINE Negative (Negative); BENZODIAZEPINE SCREEN, URINE Negative (Negative); CANNABINOID SCREEN, URINE Negative (Negative); COCAINE SCREEN, URINE Negative (Negative); METHADONE SCREEN, URINE Negative (Negative); OPIATE SCREEN, URINE Negative (Negative)
--- NOTE | 2019-06-16 00:02 | NUR ---
Patient sleeping in [facility]. Respirations even and unlabored. Room secured. Sitter outside.
--- NOTE | 2019-06-16 00:41 | NUR ---
Spoke with SOC Dr. James regarding patient prior to telepsych consult. Addendum: 06/16/19 at [email or web address] Thomas
--- NOTE | 2019-06-16 00:53 | NUR ---
Spoke with SOC Dr. hTomas. She recommends inpatient stay.
--- NOTE | 2019-06-16 00:57 | NUR ---
Patient resting in [place] after telepsych consult. Respirations even and unlabored. Room secured. Sitter outside.
--- NOTE | 2019-06-16 03:10 | NUR ---
Report given to SAROJ SOMMERS. Patient to be transferred to [facility]. Room ready at 0350.
== END 2019-06-16 03:20 ==
LOC: ED 06-16 01:34
DX: R45.851 Suicidal ideations (principal); F32.1 Major depressive disorder, single episode, moderate; F17.200 Nicotine dependence, unspecified, uncomplicated
CPT/HCPCS: 36415; 80053; 80307; 85025; 99285

== ENCOUNTER 2019-06-16 03:22 | Inpatient (IN) | payer MEDICAID ==
[~2019-06-16] VITALS: Ht 172.7 cm; Wt 88.9 kg
[2019-06-16 03:26] VITALS: BP 100/64
[2019-06-16] MEDS ORDERED: BISACODYL 10 MG SUPP PR PRN (04:00)
[2019-06-16] MEDS ORDERED: POLYETHYLENE GLYCOL 17 GM PACKET PO PRN (04:00)
[2019-06-16] MEDS ORDERED: ONDANSETRON ODT 4 MG PO PRN (04:00)
[2019-06-16] MEDS ORDERED: DOCUSATE 100 MG CAPSULE PO PRN (04:00)
[2019-06-16 04:16] LABS: CHOL/HDL RATIO 7.8; FREE T4 (FREE THYROXINE) 1.02 ng/dL (0.76-1.46); LDL/HDL RATIO 4.5 (0.5-3.0)
[2019-06-16 04:50] VITALS: BP 100/64
[2019-06-16 07:34] VITALS: BP 157/83
[2019-06-16 08:17] LABS: BASOPHILS # (AUTO) 0.09 x10^3/uL (0-0.1); BASOPHILS % (AUTO) 1 % (0-1); EOSINOPHILS # (AUTO) 0.29 x10^3/uL (0-0.4); EOSINOPHILS % (AUTO) 3 % (1-7); LYMPHOCYTES # (AUTO) 2.08 x10^3/uL (1-3.4); LYMPHOCYTES % (AUTO) 21 % (22-44); MD NO; MEAN CORPUSCULAR HEMOGLOBIN 29.8 pg (27.5-34.5); MEAN CORPUSCULAR HGB CONC 33.1 g/dL (33.2-36.2); MEAN CORPUSCULAR VOLUME 89.9 fL (81-97); MEAN PLATELET VOLUME 7.1 fL (7.4-10.4); MONOCYTES # (AUTO) 0.77 x10^3/uL (0.2-0.8); MONOCYTES % (AUTO) 8 % (2-9); NEUTROPHILS # (AUTO) 6.87 x10^3/uL (1.8-6.8); NEUTROPHILS % (AUTO) 68 % (42-75); PLATELET COUNT 250 x10^3/uL (130-400); RED BLOOD COUNT 4.34 x10^6/uL (4.38-5.82); RED CELL DISTRIBUTION WIDTH 15.9 % (9.4-14.8)
[2019-06-16 08:18] LABS: HEMOGRAM NOTE RECHECKED
[2019-06-16] MEDS: NICOTINE 14MG/24 HR PATCH.TD24 TD SCH (08:19)
[2019-06-16 08:20] LABS: ALANINE AMINOTRANSFERASE 21 U/L (12-78); ALBUMIN 3.2 g/dL (3.4-5.0); ANION GAP 4 mmol/L (5-15); CALCIUM 8.7 mg/dL (8.5-10.1); CHLORIDE 115 mmol/L (98-107); CREATININE 1.54 mg/dL (0.7-1.3)
[2019-06-16] MEDS: DULOXETINE 30 MG CAPSULE.DR PO SCH (08:20)
[2019-06-16] MEDS: GABAPENTIN 400 MG CAPSULE PO SCH ×3 (08:20→20:02)
[2019-06-16 08:22] LABS: ALKALINE PHOSPHATASE 131 U/L (45-117); BILIRUBIN,TOTAL 0.2 mg/dL (0.2-1.0); TOTAL PROTEIN 7.1 g/dL (6.4-8.2)
[2019-06-16] MEDS: ACETAMINOPHEN 325 MG TABLET PO PRN ×2 (10:16→20:02)
[2019-06-16 18:23] LABS: MICROSCOPIC NOT IND
[2019-06-16 18:34] LABS: CULTURE INDICATED? NO
[2019-06-16 19:39] VITALS: BP 130/78
[2019-06-16] MEDS: ATORVASTATIN 20 MG TABLET PO SCH (20:02)
[2019-06-16] MEDS: OLANZAPINE 10 MG TABLET PO SCH (20:02)
[2019-06-17 07:34] VITALS: BP 117/70
[2019-06-17] MEDS: NICOTINE 14MG/24 HR PATCH.TD24 TD SCH (08:38)
[2019-06-17] MEDS: DULOXETINE 30 MG CAPSULE.DR PO SCH (08:38)
[2019-06-17] MEDS: GABAPENTIN 400 MG CAPSULE PO SCH ×3 (08:38→20:07)
[2019-06-17 19:00] VITALS: BP 118/62
[2019-06-17] MEDS: ATORVASTATIN 20 MG TABLET PO SCH (20:07)
[2019-06-17] MEDS: ACETAMINOPHEN 325 MG TABLET PO PRN (20:07)
[2019-06-17] MEDS: OLANZAPINE 10 MG TABLET PO SCH (20:07)
[2019-06-18 07:40] VITALS: BP 140/69
[2019-06-18] MEDS: DULOXETINE 30 MG CAPSULE.DR PO SCH (09:59)
[2019-06-18] MEDS: GABAPENTIN 400 MG CAPSULE PO SCH ×3 (10:00→20:09)
[2019-06-18] MEDS: NICOTINE 14MG/24 HR PATCH.TD24 TD SCH (10:00)
[2019-06-18] MEDS: ACETAMINOPHEN 325 MG TABLET PO PRN (10:00)
[2019-06-18] MEDS ORDERED: CALCIUM CARBONATE 500 MG TAB.CHEW ONE (18:48)
[2019-06-18] MEDS ORDERED: CALCIUM CARBONATE 500 MG TAB.CHEW PO ONE (19:00)
[2019-06-18 19:15] VITALS: BP 138/76
[2019-06-18] MEDS: OLANZAPINE 10 MG TABLET PO SCH (20:09)
[2019-06-18] MEDS: ATORVASTATIN 20 MG TABLET PO SCH (20:09)
[2019-06-19 07:32] VITALS: BP 143/82
[2019-06-19] MEDS: DULOXETINE 30 MG CAPSULE.DR PO SCH (08:23)
[2019-06-19] MEDS: GABAPENTIN 400 MG CAPSULE PO SCH ×3 (08:24→20:46)
[2019-06-19] MEDS: NICOTINE 14MG/24 HR PATCH.TD24 TD SCH (08:24)
[2019-06-19] MEDS: ACETAMINOPHEN 325 MG TABLET PO PRN ×2 (08:25→15:46)
[2019-06-19] MEDS ORDERED: CALCIUM CARBONATE 500 MG TAB.CHEW PO ONE (18:30)
[2019-06-19] MEDS: OLANZAPINE 10 MG TABLET PO SCH (20:45)
[2019-06-19] MEDS: ATORVASTATIN 20 MG TABLET PO SCH (20:46)
[2019-06-20 07:28] VITALS: BP 151/82
[2019-06-20] MEDS: NICOTINE 14MG/24 HR PATCH.TD24 TD SCH (08:44)
[2019-06-20] MEDS: DULOXETINE 30 MG CAPSULE.DR PO SCH (08:45)
[2019-06-20] MEDS: GABAPENTIN 400 MG CAPSULE PO SCH ×3 (08:45→20:53)
[2019-06-20] MEDS ORDERED: NICO-486 TD (14:41)
[2019-06-20] MEDS ORDERED: ATOR20TA37 PO (14:41)
[2019-06-20] MEDS ORDERED: ACAM333T7 PO (14:41)
[2019-06-20] MEDS ORDERED: OLAN10TA9 PO (14:41)
[2019-06-20] MEDS ORDERED: GABA-827 PO (14:41)
[2019-06-20] MEDS: ACETAMINOPHEN 325 MG TABLET PO PRN (17:49)
[2019-06-20 19:50] VITALS: BP 148/75
[2019-06-20] MEDS: OLANZAPINE 10 MG TABLET PO SCH (20:53)
[2019-06-20] MEDS: ATORVASTATIN 20 MG TABLET PO SCH (20:53)
[2019-06-21 07:51] VITALS: BP 145/78
[2019-06-21] MEDS: DULOXETINE 30 MG CAPSULE.DR PO SCH (08:08)
[2019-06-21] MEDS: GABAPENTIN 400 MG CAPSULE PO SCH (08:08)
[2019-06-21] MEDS: ACETAMINOPHEN 325 MG TABLET PO PRN (08:08)
[2019-06-21] MEDS: NICOTINE 14MG/24 HR PATCH.TD24 TD SCH (08:10)
== END 2019-06-21 10:22 | disposition home or self-care (01) | DRG 750 ==
LOC: 3E 03:22
PROVIDERS: ADMIT Psychiatry & Neurology Psychosomatic Medicine; ATTEND Psychiatry & Neurology Psychosomatic Medicine
DX: F20.0 Paranoid schizophrenia (principal); R45.851 Suicidal ideations; N18.3 Chronic kidney disease, stage 3 (moderate); G62.9 Polyneuropathy, unspecified; E78.5 Hyperlipidemia, unspecified; F20.9 Schizophrenia, unspecified; F32.9 Major depressive disorder, single episode, unspecified; I12.9 Hypertensive chronic kidney disease with stage 1 through stage 4 chronic kidney disease, or unspecified chronic kidney disease; D72.829 Elevated white blood cell count, unspecified; Z72.0 Tobacco use; Z89.612 Acquired absence of left leg above knee; Z91.5 Personal history of self-harm
CPT/HCPCS: 36415; 71045; 80053; 80061; 81003; 82607; 84439; 84443; 85025; 93005

== ENCOUNTER 2019-08-09 21:45 | Emergency (ER) | payer MEDICAID ==
[~2019-08-09] VITALS: Ht 170.2 cm; Wt 88.9 kg
[~2019-08-09 21:45] MED LIST changes: +GABA-827 PO; +NICO-486 TD
[2019-08-09 21:52] VITALS: BP 144/89
[2019-08-09 22:12] LABS: BASOPHILS # (AUTO) 0.08 x10^3/uL (0-0.1); BASOPHILS % (AUTO) 1 % (0-1); EOSINOPHILS # (AUTO) 0.27 x10^3/uL (0-0.4); EOSINOPHILS % (AUTO) 2 % (1-7); LYMPHOCYTES # (AUTO) 2.53 x10^3/uL (1-3.4); LYMPHOCYTES % (AUTO) 19 % (22-44); MD NO; MEAN CORPUSCULAR HEMOGLOBIN 30.2 pg (27.5-34.5); MEAN CORPUSCULAR HGB CONC 33.4 g/dL (33.2-36.2); MEAN CORPUSCULAR VOLUME 90.4 fL (81-97); MEAN PLATELET VOLUME 7.3 fL (7.4-10.4); MONOCYTES # (AUTO) 0.73 x10^3/uL (0.2-0.8); MONOCYTES % (AUTO) 6 % (2-9); NEUTROPHILS # (AUTO) 9.45 x10^3/uL (1.8-6.8); NEUTROPHILS % (AUTO) 72 % (42-75); PLATELET COUNT 267 x10^3/uL (130-400); RED BLOOD COUNT 4.51 x10^6/uL (4.38-5.82); RED CELL DISTRIBUTION WIDTH 15.5 % (9.4-14.8)
[2019-08-09 22:23] LABS: ALBUMIN 3.5 g/dL (3.4-5.0); ANION GAP 5 mmol/L (5-15); CALCIUM 8.4 mg/dL (8.5-10.1); CHLORIDE 110 mmol/L (98-107); CREATININE 1.62 mg/dL (0.7-1.3); SALICYLATE LEVEL 5.2 mg/dL (2.8-20.0)
[2019-08-09 22:37] LABS: AMPHETAMINE SCREEN, URINE Negative (Negative); BARBITURATE SCREEN, URINE Negative (Negative); BENZODIAZEPINE SCREEN, URINE Negative (Negative); CANNABINOID SCREEN, URINE Negative (Negative); COCAINE SCREEN, URINE Negative (Negative); METHADONE SCREEN, URINE Negative (Negative); OPIATE SCREEN, URINE Negative (Negative)
--- NOTE | 2019-08-09 22:38 | NUR ---
PT PRESENTS TO THE ER BY [facility], COMES FROM A SNF FOR SI. DENIES ANY HI. STATES HE IS DEPRESSED AND "WANTS TO WALK INTO TRAFFIC". +ETOH TODAY. 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 LAST INJECTION WAS A MONTH AGO. PT COOPERATIVE AT THIS TIME. ALL BELONGINGS BAGGED UP, 1 CANE, 2 PATIENT BELONGING BAGS, 1 PROSTETIC LEG, AND ONE BLACK BACKPACK. ALL BELGONGINS LABELED AND PLACED IN LOCKER. PT IN SECURE ROOM, TELEPSYCH TO BE CONTACTED.
--- NOTE | 2019-08-10 00:01 | NUR ---
PT SLEEPING, RESPIRATIONS EVEN AND UNLABORED. TELEPSYCH MONITOR IN ROOM AWAITING CONSULT.
--- NOTE | 2019-08-10 01:11 | NUR ---
Break rn:SOC updated on pt and awaiting telepsych consult.
--- NOTE | 2019-08-10 01:40 | NUR ---
TELEPSYCH COMPLETE. PT TO BE DISCHARGED. PT PROVIDED WITH BELONGINGS AND ASKED TO GET DRESSED.
--- NOTE | 2019-08-10 02:21 | NUR ---
Patient/Caregiver given discharge instructions and they have confirmed that they understand the instructions. Patient ambulatory with steady gait WITH CANE. PT PROVIDED WITH A CAB VOUCHER TO RESIDENCE.
== END 2019-08-10 02:23 | disposition home or self-care (01) ==
LOC: ED 22:27
DX: R45.851 Suicidal ideations (principal); Z72.9 Problem related to lifestyle, unspecified; F17.200 Nicotine dependence, unspecified, uncomplicated
CPT/HCPCS: 36415; 80048; 80307; 82040; 85025; 99283